=== PATIENT | male | born 1945 ===

== ENCOUNTER 2024-09-18 11:03 | Outpatient (CLI) | payer OTHER, SELFPAY ==
[2024-09-18 12:01] LABS: Albumin* 4.7 g/dL (3.3-5.0); Chloride* 107 mmol/L (96-114); Potassium* 5.2 mmol/L (3.6-5.1); Sodium* 140 mmol/L (135-149)
[2024-09-18 12:04] LABS: Anion Gap 14 mEq/L (7-15); Blood Urea Nitrogen* 65 mg/dL (7-30); Carbon Dioxide* 19 mmol/L (20-32); Creatinine* 3.4 mg/dL (0.5-1.5); Estimated Glomerular Filt Rate 18 ml/min; Glucose* 130 mg/dL (60-115)
[2024-09-18 12:05] LABS: Calcium* 9.4 mg/dL (8.4-10.6)
== END 2024-09-18 11:04 | disposition home or self-care (01) ==
PROVIDERS: PCP Family Medicine; Visit Provider Internal Medicine Cardiovascular Disease
DX: I25.5 Ischemic cardiomyopathy (principal); R06.02 Shortness of breath; R79.89 Other specified abnormal findings of blood chemistry
CPT/HCPCS: 36415; 80069

== ENCOUNTER 2024-10-17 08:24 | Outpatient (CLI) | payer OTHER, SELFPAY ==
[2024-10-17 08:55] LABS: Chloride* 111 mmol/L (96-114)
[2024-10-17 08:56] LABS: Potassium* 5.2 mmol/L (3.6-5.1); Sodium* 139 mmol/L (135-149)
[2024-10-17 08:58] LABS: Anion Gap 10 mEq/L (7-15); Carbon Dioxide* 18 mmol/L (20-32); Creatinine* 2.5 mg/dL (0.5-1.5); Estimated Glomerular Filt Rate 26 ml/min
[2024-10-17 08:59] LABS: Blood Urea Nitrogen* 51 mg/dL (7-30); Calcium* 9.3 mg/dL (8.4-10.6); Glucose* 129 mg/dL (60-115)
== END 2024-10-17 08:25 | disposition home or self-care (01) ==
LOC: LAB 08:25
PROVIDERS: PCP Family Medicine; Visit Provider Internal Medicine Cardiovascular Disease
DX: I25.5 Ischemic cardiomyopathy (principal)
CPT/HCPCS: 36415; 80048

== ENCOUNTER 2025-01-10 14:12 | Emergency (ER) | payer OTHER, SELFPAY ==
[2025-01-10] VITALS (45 sets, daily range): BP systolic 90–159; BP diastolic 51–128; PULSE 39–82; RESP 9–29; TEMP 36; O2SAT 89–97; BMI 33.5
--- OUTSIDE RECORDS SUMMARY | 2025-01-10 14:13 | XMS_ITS | Clinical Summary ---
Author Organization [facility] Address [address] [place] [address] Care Team Providers Care Senior Developer Name Role Phone None Reported, Pcp Primary Care Provider Unavail able Source Comments Patient records contain information from all sites at [facility]. For routine questions regarding patient records, call [phone] during business hours, M-F 8:00 AM - 5:00 PM Central Time. Record requests for emergency care only can be directed to [phone] at any time.[facility] Allergies No known active allergies Medications levothyroxine 50 mcg tablet Take 50 mcg by mouth. 4 Active pravastatin (PravachoL) 20 mg tablet Take 20 mg by mouth at bedtime. Active furosemide (Lasix) 20 mg tablet Take 20 mg by mouth every morning. Active amLODIPine (Norvasc) 10 mg tablet Take 10 mg by mouth daily. Active metoprolol succinate (Toprol XL) 50 mg 24 hr tablet Take 50 mg by mouth daily. Active gabapentin (Neurontin) 300 mg capsule Take 600 mg by mouth at bedtime. Active famotidine (Pepcid) 20 mg tablet Take 20 mg by mouth. 4 Active glipiZIDE (GlucotroL) 10 mg tablet TAKE 1 TABLET (10 MG) BY MOUTH ONCE DAILY BEFORE A MEAL. Active allopurinoL (Zyloprim) 100 mg tablet Take 100 mg by mouth. 4 Active predniSONE (Deltasone) 10 mg tablet Take 2 tabs daily as needed with onset of gout attack. 3 Active acetaminophen (TylenoL) 325 mg tablet Take 325 mg by mouth every 4 (four) hours as needed. 0 Active aspirin [address] tablet Take 1 tablet by mouth daily. 7 Active moxifloxacin (Vigamox) 0.5 % ophthalmic solution Administer 1 drop into the right eye 4 (four) times a day. Begin 06/22/2024. Follow schedule provided. 3 mL 1 4 Active ketorolac (Acular) 0.5 % ophthalmic solution Administer 1 drop into the right eye 4 (four) times a day. Begin 06/22/2024. Follow schedule provided. 5 mL 1 4 Active prednisoLONE acetate (Pred Forte) 1 % ophthalmic suspension Administer 1 drop into the right eye 4 (four) times a day. Begin 06/22/2024. Follow schedule provided. 10 mL 1 4 Active moxifloxacin (Vigamox) 0.5 % ophthalmic solution Administer 1 drop into the left eye 4 (four) times a day. Begin 06/08/2024. Follow schedule provided. 3 mL 1 Active Additional Information Patient not taking.Reported on 06/24/2024 ketorolac (Acular) 0.5 % ophthalmic solution Administer 1 drop into the left eye 4 (four) times a day. Begin 06/08/2024. Follow schedule provided. 5 mL 1 4 Active Additional Information Patient taking differently:1 drop left eye2 times daily, Begin 06/08/2024. Follow schedule provided., Reported on 06/24/2024 prednisoLONE acetate (Pred Forte) 1 % ophthalmic suspension Administer 1 drop into the left eye 4 (four) times a day. Begin 06/08/2024. Follow schedule provided. 10 mL 1 4 Active Additional Information Patient taking differently:1 drop left eye2 times daily, Begin 06/08/2024. 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 Chronic Kidney Disease 06/09/2024 Cataract Senile Nuclear Sclerosis Left Cataract Senile Cortical Left 05/26/2024 Cataract Senile Nuclear Sclerosis Right 05/26/20 Cataract Senile Cortical Right 05/26/2024 Social History Tobacco Use Types Packs/Day Years Used Date Smoking Tobacco: Never Smokeless Tobacco: Never Tobacco Cessation:Counseling Given: Not Answered Alcohol Use Standard Drinks/Week Comments Yes 0 (1 standard drink = 0.6 oz pur e alcohol) occasional Dental Answer Date Recorded Dental: Regular Dentist Unknown 04/14/20 Sex and Gender Information Value Date Recorded Sex Assigned at Not on file 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 Gender Identity Not on file Sexual Orientation Not on file Last Filed Vital Signs Vital Sign Reading Time Taken Comments Blood Pressure 124/74 06/24/2024 8:50 AM CDT Pulse 71 06/24/2024 8:50 AM CDT Temperature 35.8 C (96.4 F) 06/24/2024 7:03 AM CDT Respiratory Rate 18 06/24/2024 8:50 AM CDT Oxygen Saturation 97% 06/24/2024 8:50 AM CDT Inhaled Oxygen Concentration - - Weight 121 kg (265 lb 14 oz) 06/24/2024 7:03 AM CDT Height 183.2 cm (6' 0.13) 05/26/2024 9:44 AM CD T Body Mass Index 35.93 05/26/2024 9:44 AM CDT Plan of Treatment Health Maintenance Due Date Last Done Comments Diabetic Office Visit with Foot Exam 1945 Hepatitis C Screening 1945 Office Visit for Blood Pressure Check / Re-check 1945 Urine Albumin 1945 Hepatitis B Vaccines (1 of 3 - Risk 3-dose series) 2006 RSV vaccine - (32-36 weeks) or 60+ years (1 - 1-dose 75+ series) 2021 COVID-19 Vaccine ( season) 2024 07/30/2023, 10/18/2021, 01/09/2021, Additional history exists Hemoglobin A1C 09/02/2024 03/03/2024, 0210/2023, 01/23/2023, Additional history exists Depression Screening (Annual PHQ-2) 09/30/2024 Fall Risk Screen (Annual) 09/30/2024 Thyroid Stimulating Hormone (TSH) test for thyroid function 05/07/2025 05/07/2024, 02/26/2024, 01/12/2020 Dilated Eye Exam 05/26/2025 05/26/2024 Creatinine Level (Kidney Function Test) 09/04/2025 09/04/2024, 05/27/2024, 02/26/2024, Additional history exists Potassium Level 09/04/2025 09/04/2024, 05/01, 02/26/2024, Additional history exists Sodium Level 09/04/2025 09/04/2024, 05/01, 02/26/2024, Additional history exists DTaP,Tdap,and Td Vaccines (3 - Td or Tdap) 03/11/2029 03/11/2019, 05/21/2007 Pneumococcal vaccine (50+ years) Completed 08/19/2014, 01/09/2011 Zoster Vaccines Completed 09/15/2019, 06/01, 01/09/2011 Influenza Vaccine Completed 09/01/2024, , 06/08/2020, Additional history exists IPV Vaccines Aged Out No longer eligi ble based on patient's age to complete this topic Medical Devices Implanted Type Area Bond Writer Device Identifier Shelf Expiration Date Model / Serial / Lot Lens Tcn [id number] Bicnvx +19.5d - [id number] - [id number] Implanted:Qty : 1 on 06/10/2024 by Rene Carrera M.D. at [facility] Ocular Lens Left: Eye [employer] (Previously NAT) [id number] 12/23/2026 [id number] / [id number] / Lens Tcn [id number] Bicnvx +18.5d - [id number] - [id number] Implanted:Qty : 1 on 06/24/2024 by Rene Carrera M.D. at [facility] Ocular Lens Right: Eye [employer] (Previously NAT) [id number] 11/30/2027 [id number] / [id number] / Insurance [place] [id number] Advance Directives For more information, please contact: [phone] * Full Code (Latest Code Status on File) Date Activated Date Inactivated Comments 06/24/2024 8:53 AM 06/24/2024 11:14 AM Question Answer Comments Full Code: Discussed * Full Code Date Activated Date Inactivated Comments 06/10/2024 11:21 AM 06/10/2024 1:33 PM Question Answer Comments Full Code: Discussed Care Teams Senior Developer Relationship Specialty Start Date End Date None Reported, Pcp PCP - General Family Medicine 06/10/24
--- OUTSIDE RECORDS SUMMARY | 2025-01-10 14:13 | XMS_ITS ---
Author Organization [facility] Address [address] [place] [id number] Care Team Providers Care Vp Foundation Name Role Phone VoteHerminio burrell Primary Care Provider [phone] Nora Chahal MD Unavailable [phone] Transitional Care Management Status:Closed (Closed) Start date:11/12/2024 Enrollment date:11/12/2024 End date:11/26/2024 Close reason:Goals met Continued Care and Services Coordination
--- OUTSIDE RECORDS SUMMARY | 2025-01-10 14:13 | XMS_ITS | Encounter Summary ---
Author Organization [facility] Address [address] [place] [address] Care Team Providers Care Rotary Soil Stabilizer Name Role Phone Unavailable Primary Care Provider Unavailabl e Encounter Details Date Type Department Care Team (Late st Contact Info) Description 02/06/2011 2:50 PM CDT [facility] in [address] [phone] Kareem Suggs MD 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 [address] [place] [phone] Jesus Del Castillo MD [address] [place] [address] 03/25/2025 1:20 PM CDT Office Visit [facility] [address] [place] [phone] Nora Chahal MD [address] [facility] [place] [address] 04/06/2025 Ancillary Procedure [facility] [address] [place] [phone] Jesus Del Castillo MD [address] [facility] [place] [address] 04/08/2025 12:50 PM CDT Office Visit [place] [id number] [place] [phone] Priscilla Lopez APRN CNP [address] [place] [address] documented as of this encounter Visit Diagnoses Not on filedocumented in this encounter Additional Health Concerns Infection Onset Date Last Indicated Resolved Time MRSA-Contact Isolation Comment:Infection erroneous 10/02/2021 1 1:02 AM CLINICAL PHARMACIST 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
--- OUTSIDE RECORDS SUMMARY | 2025-01-10 14:14 | XMS_ITS | Encounter Summary ---
Author Organization [place] Address [address] [place] [address]. [place] [address] Care Team Providers Care Merchandise Associate Name Role Phone RonniteHerminio burrell Primary Care Provider [phone] Nora Chahal MD Unavailable [phone] Reason for Referral * Consultation (Routine) - Pending Review Specialty Diagnoses / Procedures Referred By Contac t Referred To Contact Cardiovascular Disease Diagnoses Acute diastolic heart failure (H) Nora Chahal MD [address] [facility], [address] [place] [address] Phone: tel: fax: Referral ID Status Reason Start Date Expiration Date V isits Requested Visits Authorized [id number] Pending Review 11/27/2024 11/27/2025 1 1 Question Answer Follow-up with: Self Patient Scheduling Instructions: [facility] will call you to coordinate your care as prescribed by your provider. If you have concerns about scheduling, please call [phone]. Comments [facility] will call you to coordinate your care as prescribed by your provider. If you have concerns about scheduling, please call [phone]. BUSINESS ANALYST Reason for Visit * Reason Comments Follow Up * Consultation (Urgent: 3-5 Days) - Pending Review Specialty Diagnoses / Procedures Referred By Contac t Referred To Contact Cardiovascular Disease Diagnoses Acute diastolic heart failure (H) Bry Brothers DO [address] [place] [address] Phone: tel: fax: Referral ID Status Reason Start Date Expiration Date V isits Requested Visits Authorized [id number] Pending Review 11/11/2024 11/11/2025 1 1 Encounter Details Date Type Department Care Team (Latest Contact Info) Description 11/27/2024 10:50 AM LEAD BUSINESS ANALYST Office Visit [facility] [place] [address] [facility] [address] [place] [phone] Nora Chahal MD [address] [facility], [address] [place] [address] Acute diastolic heart failure (H) (Primary Dx); Coronary atherosclerosis due to lipid rich plaque; Ischemic cardiomyopathy; ICD (implantable cardioverter-defibrillat or), dual, in situ; Hypertension; Hypercholesteremia; Class 2 severe obesity due to excess calories with serious comorbidity and body mass index (BMI) of 35.0 to 35.9 in adult (H); FARZANA on CPAP; Type 2 diabetes mellitus without complication, without long-term current use of insulin (H); CKD (chronic kidney disease) stage 4, GFR 15-29 ml/min (H) Social History Tobacco Use Types Packs/Day Years Used Date Smoking Tobacco: Never Smokeless Tobacco: Former Chew Tobacco Cessation:Counseling Given: Not Answered Alcohol Use Standard Drinks/Week Comments No 0 (1 standard drink = 0.6 oz pur e alcohol) PHQ-2 Answer Date Recorded PHQ-2 Score 0 11/27/2024 Adolescent Education Answer Date Record ed Getting School Help Needed Not on file 07/10 Food Insecurity Answer Date Recorded Within the past 12 months, d id you worry that your food would run out before you got money to buy more? No 11/05/2024 Within the past 12 months, d id the food you bought just not last and you didn t have money to get more? No 11/05/2024 Housing Stability Answer Date Recorded Do you have housing? (Housin g is defined as stable permanent housing and does not include staying ouside in a car, in a tent, in an abandoned building, in an overnight care home, or couch-surfing.) Yes 11/05/2024 Are you worried about losing your housing? No 11/05/2024 Financial Resource Strain Answer Date R ecorded Within the past 12 months, h ave you or your family members you live with been unable to get utilities (heat, electricity) when it was really needed? No 11/05/2024 Transportation Needs Answer Date Record ed Within the past 12 months, h as lack of transportation kept you from medical appointments, getting your medicines, non-medical meetings or appointments, work, or from getting things that you need? No 11/05/2024 Interpersonal Safety Answer Date Record ed Do you feel physically and e motionally safe where you currently live? Yes 11/05/2024 Within the past 12 months, h ave you been hit, slapped, kicked or otherwise physically hurt by someone? No 11/05/2024 Within the past 12 months, h ave you been humiliated or emotionally abused in other ways by your partner or ex-partner? No 11/05/2024 Sex and Gender Information Value Date Recorded Sex Assigned at Not on file Legal Sex Male 5:07 AM LEAD BUSINESS ANALYST Gender Identity Not on file Sexual Orientation Not on file documented as of this encounter Last Filed Vital Signs Vital Sign Reading Time Taken Comments Blood Pressure 110/58 11/27/2024 10:43 AM LEAD BUSINESS ANALYST Pulse 88 11/27/2024 10:43 AM LEAD BUSINESS ANALYST Temperature - - Respiratory Rate 28 11/27/2024 10:43 AM LEAD BUSINESS ANALYST Oxygen Saturation - - Inhaled Oxygen Concentration - - Weight 114.3 kg (252 lb) 11/27/2024 10:43 AM LEAD BUSINESS ANALYST Height 180.3 cm (5' 11) 11/27/2024 10:43 AM LEAD BUSINESS ANALYST Body Mass Index 35.15 11/27/2024 10:43 AM LEAD BUSINESS ANALYST documented in this encounter Patient Instructions * Patient Instructions* Nora Chahal MD - 11/27/2024 10:50 AM LEAD BUSINESS ANALYST Mr David Coleman, I enjoyed visiting with you and again today. I am sorry to hear of the urine issues. Per our conversation double the BUMEX to 2 tablets every AM for the next 4 days and also do not drink anymore then 1/2 gallon all liquids in a day. And continue to limit salt. I will plan on seeing you 3-4 months. Ravindra Chahal BUSINESS ANALYST documented in this encounter Progress Notes * Nora Chahal MD - 11/27/2024 10:50 AM CST Images from the original note were not included. [facility] Follow-up Note Assessment & Plan (I50.31) Acute diastolic heart failure (H) (primary encounter diagnosis) Comment: Given increased shortness of breath he underwent right heart catheterization, this showed significant volume overload, he was admitted and had appropriate diuresis. Since going home he states his weights have not dropped despite him not eating, he states his shortness of breath has returned, and given his PND and orthopnea suspect he is back in heart failure. Will take the liberty of increasing his Bumex from 1 mg to 2 mg/day for the next 4 days, he has nephrology follow-up in slightlyless than 2 weeks to evaluate his increasing creatinine as well. We are limiting his fluid and limiting his sodium intake as well. (I25.10, I25.83) Coronary atherosclerosis due to lipid rich plaque (primary encounter diagnosis) Comment: Angiography February 2017 showed 25% left main lesion, normal LAD with 80% first diagonal, 35%second diagonal, normal circumflex with first obtuse marginal artery 35% with a patent stent followed by 30% stenosis. Right coronary artery has a proximal 30% lesion followed by a 40% lesion with a distal total occlusion of the PDA. Nuclear stress test 2018 showed small area of inferolateral ischemia with preserved ejection fraction and no scar, if shortness of breath persist will most likely need to repeat ischemic evaluation. (I25.5) Ischemic cardiomyopathy Comment: Initially with cardiac arrest in 2010 his ejection fraction was diminished and he receivedICD, echo done over at [facility] shows preserved ejection fraction 55 to 60%. Stress test shows ejection fraction 53%, given increased shortness of breath are echo confirmed ejection fraction 50 to 55%. (Z95.810) ICD (implantable cardioverter-defibrillator), dual, in situ Comment: [employer] device with [employer] leads placed January 2011, less than 1% ventricular pacing, less than 1% atrial pacing, no ventricular arrhythmias, however did notice atrial fibrillation, is now on Eliquis 5 mg twice daily, to be seen by EP in 2 weeks. (E66.9) Obesity (BMI 35.0-39.9 without comorbidity) Comment: Work on weight loss with current BMI 35.15. Might consider GLP-1 type drugs. (E78.00) Hypercholesteremia Comment: Unable to afford Repatha, currently on pravastatin 20 mg, total cholesterol 182 with a LDLof 93, acceptable. Might consider increasing pravastatin. (E11.9) Type 2 diabetes mellitus without complication, without long-term current use of insulin (H) Comment: So noted on no meds with hemoglobin A1c of 6.6, might consider Jardiance or GLP-1 type drugs. (I49.01) Ventricular Fibrillation Comment: Given sudden he had ICD implanted. (I10) Hypertension Comment: Under good control currently on amlodipine and metoprolol. (N18.4) CKD (chronic kidney disease) stage 4, GFR 15-29 ml/min (H) Comment: Relatively new diagnosis for him, his creatinine is 2.32 with a GFR of 28, class IV, seeing nephrology, continue to monitor with increased dose of diuretic. (G47.33) FARZANA on CPAP Comment: So noted and nightly compliance. Plan 1. Continue to work on weight loss. 2. Increase Bumex to 2 mg for the next 4 mornings. 3. Follow-up with nephrology in approximately 2 weeks to reevaluate creatinine. 4. Follow-up with EP to reevaluate atrial fibrillation. 5. Continue fluid and salt restriction. 6. Follow-up with me in about 3 to 4 months or sooner if needed. 7. Follow-up with urology considering significant urinary retention with hematuria. 8. Speak with his primary about gout flare, agree with possible short-term steroids. The longitudinal plan of care for the diagnosis(es)/condition(s) as documented were addressed during this visit. Due to the added complexity in care, I will continue to support Ole in the subsequent management and with ongoing continuity of care. Subjective CC: 79-year-old white gentleman here for posthospital discharge follow-up visit with his present. Since I saw him we performed right heart catheterization, saw pulm and Kepley wedge pressure elevated to 24 mmHg prompted admission. While in the hospital he was seen by urology as well as nephrology and was given IV diuresis. He did feel very good but yet on arrival home states that shortness of breath is increased and his weightis gone up maybe 3 pounds. He also now has a gout flare. He does also describe PND and orthopnea, despite wearing CPAP he has to sit up to catch his breath nightly. There is mildly increased bipedal e kira. There is no chest pains, palpitations, syncope, dizziness. Medications Current Outpatient Medications Medication Sig Dispense Refill albuterol (PROAIR HFA/PROVENTIL HFA/VENTOLIN HFA) 108 (90 Base) MCG/ACT inhaler Inhale 1-2 puffs into the lungs every 4 hours as needed for shortness of breath, wheezing or cough. allopurinol (ZYLOPRIM) 300 MG tablet Take 300 mg by mouth daily. amLODIPine (NORVASC) 10 MG tablet [AMLODIPINE (NORVASC) 10 MG TABLET] Take 10 mg by mouth daily. apixaban ANTICOAGULANT (ELIQUIS ANTICOAGULANT) 5 MG tablet Take 1 tablet (5 mg) by mouth 2 times daily. 60 tablet 3 aspirin 81 MG EC tablet [ASPIRIN 81 MG EC TABLET] Take 81 mg by mouth daily. bumetanide (BUMEX) 1 MG tablet Take 1 tablet (1 mg) by mouth daily. 30 tablet 0 famotidine (PEPCID) 20 MG tablet Take 20 mg by mouth 2 times daily. fluticasone-salmeterol (ADVAIR) 250-50 MCG/ACT inhaler INHALE 1 PUFF BY MOUTH TWO TIMES DAILY. gabapentin (NEURONTIN) 100 MG capsule Take 1 capsule (100 mg) by mouth 2 times daily. 60 capsule 0 levothyroxine (SYNTHROID/LEVOTHROID) 50 MCG tablet Take 50 mcg by mouth daily. metoprolol succinate ER (TOPROL XL) 50 MG 24 hr tablet Take 1 tablet (50 mg) by mouth daily. 30 tablet 0 polyethylene glycol (MIRALAX) 17 GM/Dose powder Take 17 g by mouth daily as needed for constipation. pravastatin (PRAVACHOL) 20 MG tablet Take 1 tablet (20 mg) by mouth at bedtime. 30 tablet 0 predniSONE (DELTASONE) 10 MG tablet Take 2 tablets by mouth daily as needed (Gout Attack). At the onset of a gout attack senna-docusate (SENOKOT-S/PERICOLACE) 8.6-50 MG tablet Take 2 tablets by mouth 2 times daily. sitagliptin (JANUVIA) 25 MG tablet Take 1 tablet (25 mg) by mouth daily. 30 tablet 0 sodium bicarbonate 650 MG tablet Take 1 tablet (650 mg) by mouth 3 times daily. 90 tablet 0 tamsulosin (FLOMAX) 0.4 MG capsule Take 1 capsule (0.4 mg) by mouth daily. 30 capsule 0 blood glucose (NO BRAND SPECIFIED) test strip TEST 3 TIMES PER DAY THREE DAYS PER WEEK. blood glucose monitoring (SOFTCLIX) lancets TEST 3 TIMES PER DAY 3 DAYS PER WEEK. Blood Glucose Monitoring Suppl (ACCU-CHEK GUIDE ME) w/Device KIT DIRECTED. DISPENSE METER COVERED BY [employer]. cefdinir (OMNICEF) 300 MG capsule Take 1 capsule (300 mg) by mouth daily. 7 capsule 0 multivitamin therapeutic (THERAGRAN) tablet [MULTIVITAMIN THERAPEUTIC (THERAGRAN) TABLET] Take 1 tablet by mouth daily. oxyCODONE (ROXICODONE) 5 MG tablet Take 0.5-1 tablets (2.5-5 mg) by mouth every 6 hours as needed for severe pain. 12 tablet 0 Objective BP 110/58 (BP Location: Right arm, Patient Position: Sitting, Cuff Size: Adult Large) Pulse 88 Resp 28 Ht 1.803 m (5' 11) Wt 114.3 kg (252 lb) BMI 35.15 kg/m?? General Appearance: Alert, cooperative, no distress, appears stated age Head: Normocephalic, without obvious abnormality, atraumatic Throat: Lips, mucosa, and tongue normal; teeth and gums normal Neck: Supple, symmetrical, trachea midline, no adenopathy; thyroid: No enlargement/tenderness/nodules; no carotid bruit, to jaw at 30 degrees JVD Back: Symmetric, no curvature, ROM normal, no CVA tenderness Lungs: Decreased breath sounds bases bilaterally, respirations unlabored Chest wall: No tenderness or deformity Heart: Regular rate and rhythm, S1 and S2 normal, no murmur, rub or gallop Abdomen: Soft, non-tender, bowel sounds active all four quadrants, no masses, no organomegaly Extremities: Normal, atraumatic, no cyanosis, 1/4 bipedal edema Pulses: 2+ and symmetric all extremities Skin: Skin color, texture, turgor normal, no rashes or lesions Results Lab Results personally reviewed Lab Results Component Value Date CHOL 138 11/04/2024 CHOL 151 12/04/2013 Lab Results Component Value Date HDL 30 (L) 11/04/2024 HDL 32 (L) 12/04/2013 No components found for: LDLCALC Lab Results Component Value Date TRIG 174 (H) 11/04/2024 TRIG 103 12/04/2013 Lab Results Component Value Date WBC 19.7 (H) 11/25/2024 HGB 11.2 (L) 11/25/2024 HCT 32.8 (L) 11/25/2024 PLT 273 11/25/2024 Lab Results Component Value Date BUN 43.8 (H) 11/25/2024 NA 130 (L) 11/25/2024 CO2 21 (L) 11/25/2024 BUSINESS ANALYST documented in this encounter Plan of Treatment Upcoming Encounters Date Type Department Care Team (Late st Contact Info) Description 02/19/2025 Ancillary Procedure [address] [place] [phone] Jesus Del Castillo MD [address] [facility] [address] [place] [address] 03/25/2025 1:20 PM CDT Office Visit [place] [id number] [facility] [address] [place] [phone] Nora Chahal MD [address] [facility], [address] [place], [place] [id number] 04/06/2025 Ancillary Procedure [facility] [address] [facility] [address] [place] [phone] Jesus Del Castillo MD [address] [facility] [address] [place], [place] [id number] 04/08/2025 12:50 PM CDT Office Visit [facility] [address] [facility] [address] [place] [phone] Priscilla Lopez APRN [employer] [address] [facility] [address] [place] [address] Scheduled Referrals Name Type Priority Associated Diagnoses Orde r Schedule Follow-Up with Cardiology Referral Routine: Next available opening Acute diastolic heart failure (H) Expected: 03/27/2025 (Approximate), Expires: 11/27/2025 documented as of this encounter Visit Diagnoses Diagnosis Acute diastolic heart failure (H)- Primary Acute diastolic heart failure Coronary atherosclerosis due to lipid rich plaque Ischemic cardiomyopathy Other specified forms of chronic ischemic heart disease ICD (implantable cardioverter-defibrillator), dual, in situ Hypertension Unspecified essential hypertension Hypercholesteremia Pure hypercholesterolemia Class 2 severe obesity due to excess calories with serious comorbidity and body mass index (BMI) of 35.0 to 35.9 in adult (H) FARZANA on CPAP Obstructive sleep apnea (adult) (pediatric) Type 2 diabetes mellitus without complication, without long-term current use of insulin (H) CKD (chronic kidney disease) stage 4, GFR 15-29 ml/min (H) Chronic kidney disease, Stage IV (severe) documented in this encounter Additional Health Concerns Infection Onset Date Last Indicated Resolved Time 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
--- OUTSIDE RECORDS SUMMARY | 2025-01-10 14:14 | XMS_ITS | Encounter Summary ---
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 Sick sinus syndrome (H) Procedures Cardiac Device Check - Remote Jesus Del Castillo MD [address] [address] Phone: tel: fax: Referral ID Status Reason Start Date Expiration Date V isits Requested Visits Authorized [id number] Pending Review 12/10/2024 12/10/2025 100 100 * CV Testing (Routine) - Pending Review Specialty Diagnoses / Procedures Referred By Contac t Referred To Contact Diagnoses 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 Sick sinus syndrome (H) Procedures Cardiac Device Check - In Clinic Jesus Del Castillo MD 1600 [facility] [address] [place] [address] Phone: tel: fax: Referral ID Status Reason Start Date Expiration Date V isits Requested Visits Authorized [id number] Pending Review 12/10/2024 12/10/2025 50 50 Reason for Visit * CV Testing (Routine) - Pending Review Specialty Diagnoses / Procedures Referred By Delma t Referred To Contact Diagnoses 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 Sick sinus syndrome (H) Procedures Cardiac Device Check - In Clinic Jesus Del Castillo MD 1600 [facility] [address] [place] [address] Phone: tel: fax: Referral ID Status Reason Start Date Expiration Date V isits Requested Visits Authorized [id number] Pending Review 09/04/2024 09/04/2025 50 50 Encounter Details Date Type Department Care Team (Latest Contact Info) Description 12/10/2024 2:30 PM CDT Ancillary Procedure [facility] Heart [facility] [address] [facility] [address] [place] [phone] Jesus Del Castillo MD 1600 [facility] [address] [place], [place] [id number] 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 (Primary Dx); Sick sinus syndrome (H) Social History Tobacco Use Types Packs/Day [...] in an abandoned building, in an overnight detention, or couch-surfing.) Yes 11/05/2024 Are you worried [...] on file 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 Gender Identity Not on file Sexual Orientation Not on file documented as of this encounter Plan of Treatment Upcoming Encounters Date Type Department Care Team (Late st Contact Info) Description 02/19/2025 Ancillary Procedure [address] [place] [address] Jesus Del Castillo MD 1600 [facility] [address] [place] [address] 03/25/2025 1:20 PM CDT Office Visit [facility] [address] [facility] [address] [place] [phone] Nora Chahal MD [address] [facility] [address] [place] [address] 04/06/2025 Ancillary Procedure [facility] [address] [facility] [address] [place] [address] Jesus Del Castillo MD 1600 [facility] [address] [place], [place] [id number] 04/08/2025 12:50 PM CDT Office Visit [facility] [address] [place] [phone] Priscilla Lopez APRN NUCLEAR MEDICINE PHYSICIAN [address] [facility] [address] [place], [place] [phone] Scheduled Orders Name Type Priority Associated Diagnoses Order Schedule Cardiac Device Check - In Clinic Implantable Cardiac Device Routine 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 Sick sinus syndrome (H) 50 Occurrences starting 12/10/2024 until 12/10/2033 Cardiac Device Check - Remote Implantable Cardiac Device Routine 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 Sick sinus syndrome (H) 100 Occurrences starting 12/10/2024 until 12/08/2035 documented as of this encounter Procedures Procedure Name Priority Date/Time Associated Diagnosis Comments ICD DEVICE PROGRAMMING EVAL, DUAL LEAD ICD Routine 12/10/2024 1:56 PM CDT 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 Sick sinus syndrome (H) documented in this encounter Results * ICD DEVICE PROGRAMMING EVAL, DUAL LEAD ICD (12/10/2024 1:56 PM CDT) Date Time Interrogation Session [id number] [employer] Implantable Pulse Generator Engineering Designer [employer] Implantable Pulse Generator Model D121 MOMENTUM EL ICD [employer] Implantable Pulse Generator Serial Number [id number] [employer] Type Interrogation Session In Clinic [facility] Clinic Name [facility] [employer] Implantable Pulse Generator Type Defibrillator [employer] Implantable Pulse Generator Implant Date 20220912 [employer] Implantable Lead Engineering Designer [employer] Implantable Lead Model 4470 Fineline II Sterox EZ [employer] Implantable Lead Serial Number [id number] [employer] Implantable Lead Implant Date 20110217 [employer] Implantable Lead Polarity Type Bipolar Lead [employer] Implantable Lead Location Detail 1 APPENDAGE [employer] Implantable Lead Location Right Atrium [employer] Implantable Lead Connection Status Connected [employer] Implantable Lead Engineering Designer [employer] Implantable Lead Model 0158 [place] [employer] Implantable Lead Serial Number [id number] [employer] Implantable Lead Implant Date 20110217 [employer] Implantable Lead Polarity Type Tripolar Lead [employer] Implantable Lead Location Detail 1 SEPTUM [employer] Implantable Lead Location Right Ventricle [employer] Implantable Lead Connection Status Connected [employer] Charlie Setting Mode (NBG Code) DDDR [employer] Charlie Setting Lower Rate Limit 55 {beats}/ min [employer] Charlie Setting Maximum Tracking Rate 130 {beats}/ min [employer] Charlie Setting Maximum Sensor Rate 130 {beats}/ min [employer] Charlie Setting GAGAN Delay Low 180 ms [employer] Charlie Setting PAV Delay Low 180 ms [employer] Charlie Setting PAV Delay High 120 ms [employer] Charlie Setting GAGAN Delay High 120 ms [employer] Charlie Setting AT Mode Switch Rate 170 {beats}/ min [employer] Charlie Setting AT Mode Switch Mode DDIR [employer] Lead Channel Setting Sensing Polarity Bipolar [employer] Lead Channel Setting Sensing Sensitivity 0.25 mV [employer] Lead Channel Setting Sensing Adaptation Mode Adaptive [employer] Lead Channel Setting Sensing Polarity Bipolar [employer] Lead Channel Setting Sensing Sensitivity 0.6 mV [employer] Lead Channel Setting Sensing Adaptation Mode Adaptive [employer] Lead Channel Setting Pacing Polarity Bipolar [employer] Lead Channel Setting Pacing Pulse Width 0.4 ms [employer] Lead Channel Setting Pacing Amplitude 2.0 V [employer] Lead Channel Setting Pacing Capture Mode Adaptive [employer] Lead Channel Setting Pacing Polarity Bipolar [employer] Lead Channel Setting Pacing Pulse Width 0.4 ms [employer] Lead Channel Setting Pacing Amplitude 2.0 V [employer] Lead Channel Setting Pacing Capture Mode Adaptive [employer] Zone Setting Type Category VF [facility] Zone Setting Vendor Type Category VF [employer] Zone Setting Status Active [facility] Zone Setting Detection Interval 250 ms [employer] Zone Setting Type Category VT [facility]TR[employer]IC Zone Setting Vendor Type Category VT [facility]IC Zone Setting Status Active [facility] Zone Setting Detection Interval 324 ms [employer] Lead Channel Status Check Lead [employer] Lead Channel Impedance Value 469 ohm [employer] Lead Channel Impedance Value 469 ohm [employer] Lead Channel Sensing Intrinsic Amplitude 4.3 mV [employer] Lead Channel Pacing Threshold Amplitude 0.6 V [employer] Lead Channel Pacing Threshold Pulse Width 0.4 ms [employer] Lead Channel Pacing Threshold Amplitude 0.6 V [employer] Lead Channel Pacing Threshold Pulse Width 0.4 ms [employer] Lead Channel Status Check Lead [employer] Lead Channel Impedance Value 384 ohm [employer] Lead Channel Impedance Value 384 ohm [employer] Lead Channel Sensing Intrinsic Amplitude 4.8 mV [employer] Lead Channel Pacing Threshold Amplitude 1.0 V [employer] Lead Channel Pacing Threshold Pulse Width 0.4 ms [employer] Lead Channel Pacing Threshold Amplitude 1.0 V [employer] Lead Channel Pacing Threshold Pulse Width 0.4 ms [employer] Battery Date Time of Measurements [id number] [employer] Battery Status Beginning of Service [employer] Battery Remaining Longevity 138 mo [employer] Battery Remaining Percentage 100 % [employer] Capacitor Charge Type Reformation [employer] Capacitor Last Charge Date Time [id number] [employer] Capacitor Charge Time 10.1 s [employer] Charlie Statistic Date Time Start [id number] [employer] Charlie Statistic Date Time End [id number] [employer] Charlie Statistic RA Percent Paced 1 % [employer] Charlie Statistic RV Percent Paced 1 % [employer] Atrial Tachy Statistic Date Time Start [id number] [employer] Atrial Tachy Statistic Date Time End [id number] [employer] Atrial Tachy Statistic AT/AF [place] Percent 1 % [employer] Therapy Statistic Recent Shocks Delivered 0 [employer] Therapy Statistic Recent Shocks Aborted 0 [employer] Therapy Statistic Recent ATP Delivered 1 [employer] Therapy Statistic Recent Date Time Start [id number] [employer] Therapy Statistic Recent Date Time End [id number] [employer] Therapy Statistic Total Shocks Delivered 0 [employer] Therapy Statistic Total Shocks Aborted 0 [employer] Therapy Statistic Total ATP Delivered 1 [employer] Therapy Statistic Total Date Time Start [id number] [employer] Therapy Statistic Total Date Time End [id number] [employer] Episode Statistic Recent Count 0 [employer]IC Episode Statistic Type Category Other MEDTRONIC Episode Statistic Recent Count 1 [employer]IC Episode Statistic Type Category VT MEDTR[facility]IC Episode Statistic Vendor Type Category NSVT [facility] Episode Statistic Recent Count 1 [employer]IC Episode Statistic Type Category VT MEDTR[employer]IC Episode Statistic Vendor Type Category VT [facility]TR[employer]IC Episode Statistic Recent Count 0 [employer]IC Episode Statistic Type Category VT [facility]IC Episode Statistic Vendor Type Category VT-1 [employer] Episode Statistic Recent Date Time Start [id number] [employer] Episode Statistic Recent Date Time End [id number] [employer] Episode Statistic Recent Date Time Start [id number] [employer] Episode Statistic Recent Date Time End [id number] [employer] Episode Statistic Recent Date Time Start [id number] [employer] Episode Statistic Recent Date Time End [id number] [employer] Episode Statistic Recent Date Time Start [id number] [employer] Episode Statistic Recent Date Time End [id number] [employer] Anatomical Region Laterality Modality Other 12/10/2024 2:05 PM CDT Narrative 12/10/2024 3:25 PM CDT Encounter type: Pt. seen in clinic for annual device evaluation and iterative programming. Followed by an appointment with Dr. Del Castillo for AF consult, per Dr. Chahal. Device: BOSCIThomas (D) ICD Pacing %/Programmed: AP- <1%, BURN OUT SCARFING OPERATOR- <1%, DDDR 55/130 Lead(s): Stable Battery longevity: Estimating 11 years remaining. Presenting rhythm: /VS @ 80 Underlying rhythm: SR @ 80's Heart rates: Histograms show primarily 60-100 bpm. Atrial arrhythmias: Since 11/27/2024- 7 mode switches logged, 3 available EGMs for review suggest AT/AF with the longest episode lasting ~11 hours in duration. AT/AF burden = <1%. V-rates >= 120 bpm ~ 60%. Patient unable to correlate symptoms. Anticoagulant: Eliquis (confirmed) Ventricular arrhythmias: Since 11/27/2024- 2 VHRs logged; 1 EGMs shows VT episode on 10/07/24, 195-200 bpm, duration 13 seconds, terminated with ATPx1. Remaining EGM suggest 4 seconds of VT @ 189 bpm. Patient unable to correlate symptoms. Comments: Normal device function. No changes made. Plan: Remote scheduled for 02/19/2025. Patient offered remote handout. Device follow up for the entirety of having the PPM/ICD, based on best practices determined by Heart Rhythm Society and in Compliance with Medicare guidelines. Continue remote device monitoring per patient plan. Chayito Eddy RN. I have reviewed and interpreted the device interrogation, settings, programming, and encounter summary. The device is functioning within normal device parameters. I agree with the current findings, assessment and plan. 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
--- OUTSIDE RECORDS SUMMARY | 2025-01-10 14:14 | XMS_ITS | Encounter Summary ---
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 Sick sinus syndrome (H) Procedures Cardiac Device Check - Remote Jesus Del Castillo MD [address] [facility] [address] [place] [address] Phone: tel: fax: Referral ID Status Reason Start Date Expiration Date V isits Requested Visits Authorized [id number] Pending Review 09/04/2024 09/04/2025 100 100 Encounter Details Date Type Department Care Team (Latest Contact Info) Description 11/27/2024 Ancillary Procedure [facility] [address] [facility] [address] [place] [address] Jesus Del Castillo MD 1600 [facility] [address] [place] [address] ICD (implantable cardioverter-defibri llator) battery depletion; Sick sinus syndrome (H) Social History Tobacco [...] in an abandoned building, in an overnight jail, or couch-surfing.) Yes 11/05/2024 Are you worried [...] on file 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 [address] [place] [phone] Nora Chahal MD 1600 [facility], [address] [place], [place] [address] 04/06/2025 Ancillary Procedure [facility] [address] [facility] [address] [place] [phone] Jesus Del Castillo MD 1600 [facility] [address] [place], [place] [address] 04/08/2025 12:50 PM CDT Office Visit [place] [address] [facility] [address] [place] [phone] Priscilla Lopez APRN CNP [address] [facility] [address] [place], [place] [address] documented as of this encounter Procedures Procedure Name Priority Date/Time Associated Diagnosis Comments COURTESY DEVICE CHECK Routine 12/01/2024 7:03 AM BUSH REGENERATOR 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 Sick sinus syndrome (H) documented in this encounter Results * COURTESY DEVICE CHECK (12/01/2024 7:03 AM BUSH REGENERATOR) Date Time Interrogation Session [id number] [employer] Implantable Pulse Generator Finishing Machine Tender [employer] Implantable Pulse Generator Model D121 MOMENTUM EL ICD [employer] Implantable Pulse Generator Serial Number [id number] [employer] Type Interrogation Session Remote Device Initiated [facility] Clinic [facility] [employer] Implantable Pulse Generator Type Defibrillator [employer] Implantable Pulse Generator Implant Date 20220912 [employer] Implantable Lead Finishing Machine Tender Cardiac Pac[employer]akers Inc [employer] Implantable Lead Model 4470 Fineline II Sterox EZ [employer] Implantable Lead Serial Number [id number] [employer] Implantable Lead Implant Date 20110217 [employer] Implantable Lead Polarity Type Bipolar Lead [employer] Implantable Lead Location Detail 1 APPENDAGE [employer] Implantable Lead Location Right Atrium [employer] Implantable Lead Connection Status Connected [employer] Implantable Lead Finishing Machine Tender Guidant [employer] Implantable Lead Model 0158 [employer]ak [place] [employer] Implantable Lead Serial Number [id number] [employer] Implantable Lead Implant Date 20110217 MEDTRONIC [...] Detection Interval 324 ms [employer] Lead Channel Impedance Value 410 ohm [employer] Lead Channel Pacing Threshold Amplitude 0.6 V [employer] Lead Channel Pacing Threshold Pulse Width 0.4 ms [employer] Lead Channel Status Check Lead [employer] Lead Channel Impedance Value 326 ohm [employer] Lead Channel Pacing Threshold Amplitude 0.9 V [employer] Lead Channel Pacing Threshold Pulse Width 0.4 ms [employer] Battery Date Time of Measurements [id number] [employer] Battery Status Beginning of Service [employer] Battery Remaining Longevity 126 mo [employer] Battery Remaining Percentage 100 % [employer] Capacitor Charge Type Reformation [employer] Capacitor Last Charge Date Time [id number] [employer] Capacitor Charge Time 10.1 s [employer] Charlie Statistic Date Time Start [employer] Charlie Statistic Date Time End [employer] Charlie Statistic RA Percent Paced 1 % [employer] Charlie Statistic RV Percent Paced 1 % [employer] Atrial Tachy Statistic Date Time Start [employer] Atrial Tachy Statistic Date Time End [employer] Atrial Tachy Statistic AT/AF [place] Percent 1 % [employer] Therapy Statistic Recent Shocks Delivered 0 [employer] Therapy Statistic Recent Shocks Aborted 0 [employer] Therapy Statistic Recent ATP Delivered 1 [employer] Therapy Statistic Recent Date Time Start [employer] Therapy Statistic Recent Date Time End [id number] [employer] Therapy Statistic Total Shocks Delivered 0 [employer] Therapy Statistic Total Shocks Aborted 0 [employer] Therapy Statistic Total ATP Delivered 1 [employer] Therapy Statistic Total Date Time Start [id number] [employer] Therapy Statistic Total Date Time End [id number] [employer] Episode Statistic Recent Count 1 [employer] Episode Statistic Type Category AT/AF [employer] Episode Statistic Vendor Type Category AF [employer] Episode Statistic Recent Count 0 [employer]IC Episode Statistic Type Category Other MEDTRONIC Episode Statistic Recent Count 0 MEDTRONIC Episode Statistic Type Category VT MEDTRONIC Episode Statistic Vendor Type Category NSVT [employer]TR[employer]IC Episode Statistic Recent Count 0 MEDTRONIC Episode Statistic Type Category VT MEDTR[employer]IC Episode Statistic Vendor Type Category VT [employer]TR[employer]IC Episode Statistic Recent Count 0 MEDTR[employer]IC Episode Statistic Type Category VT [employer]TR[employer]IC Episode Statistic Vendor Type Category VT-1 [employer]IC Episode Statistic Recent Date Time Start [id number] [employer] Episode Statistic Recent Date Time End [id number] [employer]IC Episode Statistic Recent Date Time Start [id number] [employer] Episode Statistic Recent Date Time End [id number] [employer]TR[employer]IC Episode Statistic Recent Date Time Start [id number] [employer]IC Episode Statistic Recent Date Time End [id number] [employer] Episode Statistic Recent Date Time Start [id number] [employer]TR[employer]IC Episode Statistic Recent Date Time End [id number] [employer]IC Episode Statistic Recent Date Time Start [id number] [employer]IC Episode Statistic Recent Date Time End [id number] [employer]IC Episode Identifier [id number] [employer] Episode Type Category Periodic EGM [employer]IC Episode Date Time [id number] [employer] Episode Identifier [id number] [employer] Episode Type Category Other [employer]IC Episode Date Time [id number] [employer] Episode Identifier [id number] [employer] Episode Type Category Other [employer]IC Episode Date Time [id number] [employer] Episode Identifier [id number] [employer] Episode Type Category AT/AF [employer] Episode Date Time [id number] [employer] Episode Duration 33,427 s [employer]IC Episode Identifier [id number] [employer] Episode Type Category Periodic EGM [employer]IC Episode Date Time [id number] [employer] Episode Identifier [id number] [employer] Episode Type Category Other MED[employer]ONIC Episode Date Time [id number] [employer]IC Episode Identifier [id number] [employer] Episode Type Category Other MEDTRONIC Episode Date Time [id number] MEDTR[employer]IC Episode Identifier [id number] [employer]IC Episode Type Category Periodic EGM [employer]IC Episode Date Time [id number] [employer]IC Episode Identifier [id number] [employer] Episode Type Category Other MED[employer]ONIC Episode Date Time [id number] [employer]IC Episode Identifier [id number] [employer]IC Episode Type Category Other [employer]IC Episode Date Time [id number] [employer] Anatomical Region Laterality Modality Other 11/27/2024 4:41 AM BUSH REGENERATOR Narrative 12/01/2024 5:20 PM BUSH REGENERATOR Encounter Type: Alert 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 Courtesy check. Data was compiled on 11/27/24 for review and interpretation on 12/01/24. Device: BSCI Momentum. Pacing %/Programmed: AP 1%, GUIDE FOREIGN TOUR 1% at DDDR 55/130 ppm. Lead(s): stable. Battery longevity: 10yrs, 6mo estimated. Presenting: Sinus 80 bpm. Atrial high rates: since 11/11/24; One mode switch episode on 11/26/24 lasting 9hrs 17 minutes, EGM confirm AF, burden <1%, v-rates >/=120bpm ~40%. Anticoagulant: Eliquis Ventricular High rates: since 11/11/24; no VT/VF detected. Comments: Normal device function. Plan: Routed to device RN for review. Frannie Bee, Device Specialist ADD: Transmission reviewed, see [facility] for details. Megan Rawls RN Device follow up for the entirety of having the ICD, based on best practices determined by Heart Rhythm Society and in Compliance with Medicare guidelines. Continue remote device monitoring per patient plan. I have reviewed and interpreted the device interrogation, settings, programming, and encounter summary. The device is functioning within normal device parameters. I agree with the current findings, assessment and plan. 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
--- OUTSIDE RECORDS SUMMARY | 2025-01-10 14:14 | XMS_ITS | Encounter Summary ---
Author Organization [place] Address [address] [place] [address]. [place] [address] Care Team Providers Care Veterinary Technician Assistant Name Role Phone Voteindra Herminio Preston Primary Care Provider [phone] Nora Chahal MD Unavailable [phone] Reason for Visit * Reason Onset Date Comments Patient/info Update 12/11/2024 Encounter Details Date Type Department Care Team (Late st Contact Info) Description 12/11/2024 Telephone [facility] [address] [place] [address] Sulema Delacruz, RN Patient/info Update Social History Tobacco Use Types Packs/Day Years [...] in an abandoned building, in an overnight snf, or couch-surfing.) Yes 11/05/2024 Are you worried [...] on file 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 Note. PC note created and postponed to 12/15 to contact pt per request 12/11/2024 7:54 AM GOSIA Riojas Stuart, MD [facility] Ep Support Pool - [facility] team, Please see my note from today. Can one of the recheck of the patient next week to see if he wishes to move forward with ablation of his atrial fibrillation. If he declines I have scheduled him for a 3-month follow-up with the EP RAKAN. If he decides to move forward mapping system Guzman/YOLIE. Bhavik Lee documented in this encounter Plan of Treatment Upcoming Encounters Date Type Department Care Team (Late st Contact Info) Description 02/19/2025 Ancillary Procedure [facility] [address] [place] [phone] Jesus Del Castillo MD [address] [facility] [address] [place] [address] 03/25/2025 1:20 PM CDT Office Visit [address] [place] [phone] Nora Chahal MD [address] [address] 04/06/2025 Ancillary Procedure [facility] [address] [place] [phone] Jesus Del Castillo MD [address] [facility] 200 [place] [address] 04/08/2025 12:50 PM CDT Office Visit [address] [place] [phone] Priscilla Lopez APRN SLITTER SCORER [address] [address] documented as of this encounter Visit Diagnoses Not on filedocumented in this encounter Additional Health Concerns Infection Onset Date Last Indicated Resolved Time 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
--- OUTSIDE RECORDS SUMMARY | 2025-01-10 14:14 | XMS_ITS | Data Portability ---
Author Organization [facility] Address [address] [place] [address] Care Team Providers Care Coding Coordinator Name Role Phone JAVIDTELM Felix Primary Care Provider Assessment No assessment recorded. Plan of Treatment Reminders Order Date Submit Date Provider Last Modified By Organization Details Last Modified Time Details Appointments ESTABLISH ED 20 2024 10:20A TEAGAN LOUIS Not available Not available Not available Lab None recorded. Referral None recorded. Procedures None recorded. Surgeries None recorded. Imaging None recorded. Medication Orders tamsulosi n 0.4 mg capsule 2024 025 [facility][id number], [address], [place], [address], 12/03/2024 12:24:34 Patient TargetsNo targets recorded. Patient Instructions Encounter Date Encounter Id Patient Instructions Last Modified By Organization Details Last Modified Time 12/03/2024 [id number] Patient is a 79-year-old male presents today for urinary retention, voiding trial. Patient with episode of urinary retention during hospitalization for congestive heart failure. He was started on tamsulosin 0.4 mg daily. Patient was able to pass a voiding trial today. Patient successfully passed voiding trial today. Did encourage plenty of fluids at home and call/return to the clinic if patient unable to urinate at home. If unable to urinate during the evening hours, should be evaluated in the ED for garcia placement. We did recommend him learn [facility]IC however patient declined. Will plan for him to continue on the tamsulosin at a dose of 0.4 mg daily and follow-up in 3 months for a recheck. [email or web address] Not available 12/03/2024 13:06:15 Reason for Referral None Reported. Results Created Date Observation Date Name Description Value Unit Range Abnormal Flag Note LastModifiedBy Organization Detail LastModifiedTime 11/26/1911/09/2024 US, renal No observ ation record ed. [email or web address] Not Available 2024 12:31:02 Result Notes None recorded. Procedures Surgical History Date Name Laterality Status Provider Name and Address Organization Details Recorded Time COMPLEX VISIT completed TEAGAN MAYFIELD [address] [place] [address],[facility] [address], [place], [address], [facility] 12/03/2024 13:05:30 Past Data Reviewed completed TEAGAN MAYFIELD [address] [place] [address],[facility] [address], [place], [address], [facility] 12/03/2024 13:05:39 5 Fill and Pull/Voiding Trial/TOV completed Belle Davalos [facility] 12/03/2024 12:15:00 5 Garcia Catheter Insertion completed Gerardo Skaggs [facility] 11/24/2024 09:34:45 5 Fill and Pull/Voiding Trial/TOV completed Gerardo Skaggs [facility] 11/24/2024 09:32:49 Imaging Results Imaging Date Name Status LastModified by Organiz ation Details LastModified Time 11/09/2024 US, renal completed [email or web address] Information no t available 11/26/2024 12:31:02 Procedure Notes None recorded. Medical Equipment None Reported. Medications Name Sig Start Date Stop Date Status Note LastModified by Organization Details LastModified Time nifedipine ER 30 mg tablet,exte nded release 24 hr TAKE 1 TABLET (30 MG) BY MOUTH ONCE DAILY BEFORE A MEAL. active Not Available Not Available No t Available fluticasone 250 mcg-salmete rol 50 mcg/dose blistr powdr for inhalation INHALE 1 PUFF BY MOUTH TWO TIMES DAILY. 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 DO NOT EXCEED 8 TABLETS PER DAY. 12/01 completed Not Available Not Available Not Available glipizide 10 mg tablet TAKE 1 TABLET (10 MG) BY MOUTH ONCE DAILY BEFORE A MEAL. 12/01 completed Not Available Not Available Not Available metoprolol succinate ER 100 mg tablet,exte nded release 24 hr TAKE 1 TABLET BY MOUTH EVERY DAY active Not Available Not Available No t Available Accu-Chek Softclix Lancets TEST 3 TIMES PER DAY 3 DAYS PER WEEK. active Not Available Not Available No t Available allopurinol 100 mg tablet TAKE ONCE DAILY, 1 TAB FOR 2 WEEKS, THEN INCREASE TO 2 TABLETS X 2 WEEKS, THEN 3 TABLETS DAILY active Not Available Not Available No t Available amoxicillin 500 mg tablet TAKE ONE TAB BY MOUTH THREE TIMES DAILY FOR FIVE DAYS 12/01 completed Not Available Not Available Not Available levothyroxi ne 25 mcg tablet TAKE 1 TABLET (25 MCG) BY MOUTH BEFORE BREAKFAST active Not Available Not Available No t Available ketorolac 0.5 % eye drops ADMINISTE R 1 DROP INTO THE LEFT EYE 4 (FOUR) TIMES A DAY. BEGIN 06/08/2024. FOLLOW SCHEDULE PROVIDED. active Not Available Not Available No t Available famotidine 20 mg tablet TAKE 1 TABLET BY MOUTH TWO TIMES DAILY. active Not Available Not Available No t Available prednisolon e acetate 1 % eye drops,suspe nsion ADMINISTE R 1 DROP INTO THE LEFT EYE 4 (FOUR) TIMES A DAY. BEGIN 06/08/2024. FOLLOW SCHEDULE PROVIDED. active Not Available Not Available No t Available tamsulosin 0.4 mg capsule TAKE 1 CAPSULE BY MOUTH EVERY DAY active Not Available Not Available No t Available sodium bicarbonate 650 mg tablet TAKE 1 TABLET (650 MG) BY MOUTH 3 TIMES DAILY. active Not Available Not Available No t Available amlodipine 10 mg tablet TAKE 1 TABLET BY MOUTH EVERY DAY active Not Available Not Available No t Available levothyroxi ne 50 mcg tablet TAKE 1 TABLET (50 MCG) BY MOUTH BEFORE BREAKFAST . DOSE INCREASE 05/08/24 active Not Available Not Available No t Available cephalexin 500 mg capsule TAKE 1 CAPSULE (500 MG) BY MOUTH 4 TIMES A DAY FOR 5 DAYS 12/01 completed Not Available Not Available Not Available gabapentin 300 mg capsule TAKE 2 CAPSULES BY MOUTH AT BEDTIME. active Not Available Not Available No t Available bumetanide 1 mg tablet TAKE 1 TABLET BY MOUTH EVERY DAY active Not Available Not Available No t Available allopurinol 300 mg tablet PLEASE SEE ATTACHED FOR DETAILED DIRECTION S active Not Available Not Available No t Available pravastatin 20 mg tablet TAKE 1 TABLET BY MOUTH EVERYDAY AT BEDTIME active Not Available Not Available No t Available furosemide 20 mg tablet TAKE 1 TABLET BY MOUTH EVERY MORNING active Not Available Not Available No t Available gabapentin 100 mg capsule TAKE 1 CAPSULE BY MOUTH TWICE A DAY active Not Available Not Available No t Available ibuprofen 600 mg tablet TAKE ONE TAB EVERY 6 TO 8 HOURS NEEDED 12/01 completed Not Available Not Available Not Available albuterol sulfate HFA 90 mcg/actuati on aerosol inhaler INHALE 1 TO 2 PUFFS BY MOUTH EVERY 4 HOURS NEEDED FOR SHORTNESS OF BREATH OR FOR WHEEZE active Not Available Not Available No t Available cefdinir 300 mg capsule TAKE 1 CAPSULE BY MOUTH EVERY DAY 12/01 completed Not Available Not Available Not Available oxycodone 5 mg tablet TAKE 0.5 TO 1 TABLET (2.5-5 MG) BY [facility] EVERY 6 HOURS NEEEDED FOR SEVERE PAIN. 12/01 completed Not Available Not Available Not Available moxifloxaci n 0.5 % eye drops ADMINISTE R 1 DROP INTO THE LEFT EYE 4 (FOUR) TIMES A DAY. BEGIN 06/08/2024. FOLLOW SCHEDULE PROVIDED. active Not Available Not Available No t Available Januvia 25 mg tablet TAKE 1 TABLET BY MOUTH EVERY DAY active Not Available Not Available No t Available Eliquis 5 mg tablet TAKE 1 TABLET BY MOUTH TWICE A DAY active Not Available Not Available No t Available Accu-Chek Guide test strips TEST 3 TIMES PER DAY THREE DAYS PER WEEK. active Not Available Not Available No t Available Accu-Chek Guide Me Glucose Meter DIRECTED. DISPENSE METER COVERED BY [employer] INSURANCE . active Not Available Not Available No t Available Vitals Date Recorded Body weight Body mass index (BMI) Body height Provider Name and Address Organization Details Last Updated DateTime 12/01/2024 519541.02 g 32.5 kg/m2 180.34 cm [facility] 12/01/2024 10:59:33 Date Recorded Body height Body mass index (BMI) Body weight Provider Name and Address Organization Details Last Updated DateTime 12/03/2024 172.72 cm 33.5 kg/m2 03980.32 g Belle Davalos [facility] 12/03/2024 12:16:54 Social History Question Answer Notes LastModified by Organizat ion Details LastModified Time Tobacco Smoking Status Never Smoker Antoinette Benja blakely [facility] 12/01/2024 11:00:03 Do You Have An Advance Directive? No [email or web address] Information not available 12/03/2024 What Is Your Level Of Alcohol Consumption? None [email or web address] Information not available 12/03/2024 What Is Your Level Of Caffeine Consumption? None [email or web address] Information not available 12/03/2024 Do You Have A Medical Power Of Hat Parts Cutter Machine? No [email or web address] Information not available 12/03/2024 What Was The Date Of Your Most Recent Tobacco Screening? 12/03/2024 [email or web address] Information not available 12/03/2024 Do You Use Any Illicit Or Recreational Drugs? No [email or web address] Information not available 12/03/2024 Has Tobacco Cessation Counseling Been Provided? No Information not available 12/01/2024 Do You Or Have You Ever Used Any Other Forms Of Tobacco Or Nicotine? No Information not available 12/01/2024 Sex: Unknown Functional Status None recorded. Mental Status None recorded. Family History Nothing Reported. Medical History Condition Response Other N High Blood Pressure Y Kidney Stones N Lung Disease N Depression Y GERD/Acid Reflux N Sexually Transmitted Infection N Cancer N High Cholesterol Y Diabetes Y Bleeding Disorder N Heart Disease N Past Encounters Encounter ID Performer Location Encounter Start Date Encounter Closed Date Diagnosis/Indication Diagnosis SNOMED-CT Code Diagnosis ICD10 Code Diagnosis Note [id number] [facility] [address] [facility] [address] [place] [address] 11/24/2024 08:40:11 11/24/2024 09:45:04 Retention of urine 681288268 R33.9 [id number] TEAGAN MAYFIELD [facility] [address] [facility] 200 [place] [address] 12/03/2024 11:43:09 12/03/2024 13:36:01 Retention of urine 912728097 R33.9 Health Concerns Section Related Observation LastModified by Organization Detai ls LastModified Time None Recorded Concern Status LastModified by Organization Details LastModified Time None Recorded Advance Directives Directive N: Payers Encounter Date Sequence Insurance Name Policy Number Policy Fuentes Covered Member ID Fuentes Member ID Guarantor Name 11/24/2024 1 MEDICA - DUAL ELIGIBLE (MEDICARE REPLACEMENT/A DVANTAGE - HMO) David Coleman [id number] David Coleman 12/03/2024 1 MEDICA - DOS ON OR AFTER 2020 - MEDICA GOVERNMENT PROGRAMS - ADVANTAGE SOLUTION (MEDICARE REPLACEMENT/A DVANTAGE - PPO) [id number] David Coleman [id number] David Coleman Notes Date Note Type Note Provider Name and Address Organization Details Recorded Time 12/03/2024 text/html Patient is a 79-year-old male presents today for urinary retention, voiding trial. Patient found to have urinary retention on 11/[address] [facility] in the setting of heart failure. He failed a voiding trial on 11/24 and had Garcia catheter replaced. He is on tamsulosin 0.4 mg daily. He notes weak force of stream, nocturia at baseline. No previous urologic history. AXEL RICO, PAC [address] [facility],[address], [place], [address], [facility] 12/03/2024 13:06:26
--- OUTSIDE RECORDS SUMMARY | 2025-01-10 14:14 | XMS_ITS | Encounter Summary ---
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 [facility] Reason for call: Lab Result Notification Lab Result (including Rx patient on, if applicable). If culture, copy of lab report at bottom. Lab Result: Urine Culture - See Below ED Rx: cefdinir (OMNICEF) 300 MG capsule - Take 1 capsule (300 mg) by mouth daily <10,000 CFU/mL Enterococcus faecalis Abnormal (NOT TESTED) <10,000 CFU/mL Staphylococcus epidermidis Abnormal (SUSCEPTIBLE) Creatinine Level (mg/dl) Creatinine Date Value Ref Range Status 11/25/2024 2.31 (H) 0.67 - 1.17 mg/dL Final 02/06/2011 0.93 0.66 - 1.25 mg/dL Final Creatinine clearance (ml/min), if applicable Serum creatinine: 2.31 mg/dL (H) 11/25/24 1343 Estimated creatinine clearance: 33.9 mL/min (A) ED Symptoms: Presented to the ED with penile pain related to his urinary catheter. Current Symptoms: Attempted to contact the patient. He did not want to provide identifiers and did not want to call me back. Patient ended the call abruptly. Will send a letter. RN Recommendations/Instructions per [facility] ED lab result protocol: [facility] ED lab result protocol utilized: Urine Culture Advise to discontinue current antibiotic. Instruct to start antibiotic: Augmentin pending patient assessment. Letter pended to be sent via USPS mail. LULÚ PRIDE RN E RESEARCH documented in this encounter Plan of Treatment Upcoming Encounters Date Type Department Care Team (Late st Contact Info) Description 02/19/2025 Ancillary Procedure [address] [place] [phone] Jesus Del Castillo MD 1600 [facility] 200 [place] [address] 03/25/2025 1:20 PM CDT Office Visit [address] [place] [phone] Nora Chahal MD [address] [facility] [place] [address] 04/06/2025 Ancillary Procedure [facility] [address] [facility] [address] [place] [address] Jesus Del Castillo MD 1600 [facility] 200 [place] [address] 04/08/2025 12:50 PM CDT Office Visit [address] [place] [phone] Priscilla Lopez APRN POWER GENERATION ENGINEER [address] [facility] [address] [place] [address] documented as of this encounter Visit Diagnoses Not on filedocumented in this encounter Additional Health Concerns Infection Onset Date Last Indicated Resolved Time 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
--- OUTSIDE RECORDS SUMMARY | 2025-01-10 14:14 | XMS_ITS | Encounter Summary ---
Author Organization [place] Address [address] [place] [address]. [place] [address] Care Team Providers Care Scooper Name Role Phone Ronniteindra Herminio Preston Primary Care Provider [phone] Nora Chahal MD Unavailable [phone] Reason for Visit * Reason Onset Date Comments AF alert 12/01/2024 Encounter Details Date Type Department Care Team (Late st Contact Info) Description 12/01/2024 Telephone [facility] [address] [facility] [address] [place] [address] Megan Rawls RN AF alert Social History Tobacco Use Types Packs/Day Years [...] in an abandoned building, in an overnight fdc, or couch-surfing.) Yes 11/05/2024 Are you worried [...] on file 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 Discussed AF and patient denies symptoms. He reports that he is taking all his medication as prescribed and says I'm taking what they told me to take. Ole is aware of upcoming office visit with Dr. Toro. Will continue to monitor. Megan Rawls RN RVISOR CUSTOMER COMPLAINT SERVICE * Telephone Encounter - Megan Rawls RN - 12/01/2024 7:36 AM CST Images from the original note were not included. Encounter Type: Alert 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 Courtesy check. Data was compiled on 11/27/24 for review and interpretation on 12/01/24. Device: [employer] Momentum. Pacing %/Programmed: AP 1%, SCIENTOLOGIST 1% at DDDR 55/130 ppm. Lead(s): stable. Battery longevity: 10yrs, 6mo estimated. Presenting: Sinus 80 bpm. Atrial high rates: since 11/11/24; One mode switch episode on 11/26/24 lasting 9hrs 17 minutes, EGM confirm AF, burden <1%, v-rates >/=120bpm ~40%. Anticoagulant: Eliquis Ventricular High rates: since 11/11/24; no VT/VF detected. Comments: Normal device function. Plan: Routed to device RN for review. Frannie Bee Device Specialist ADD: Transmission reviewed, see [facility] for details. Megan Rawls RN 12/01/24: Spoke with patient briefly. Notified patient of AF last week and asked if he recalls any symptoms. He responded with what is AF? Attempted to explain AF but patient interrupted junior technical writer stating I'm busy. Asked if there was a better time to call him and he responded with make it quick. Again attempted to explain AF and questioned if he was taking Eliquis as prescribed. He responded with what the hell, I'm busy, I have to go. When asking if he wanted to call me back he responded with I have to go, bye and hung up. New AF and recently started Eliquis. Followed by and last seen by Dr. Chahal 11/27/24. Scheduled tofollow-up with Dr. Del Castillo 12/09/24 to discuss AF and possible ablation. Megan Rawls RN RVISOR CUSTOMER COMPLAINT SERVICE documented in this encounter Plan of Treatment Upcoming Encounters Date Type Department Care Team (Late st Contact Info) Description 02/19/2025 Ancillary Procedure [facility] [address] [facility] [address] [place] [address] Jesus Del Castillo MD 1600 [facility] [address] [place] [address] 03/25/2025 1:20 PM CDT Office Visit [address] [place] [phone] Nora Chahal MD 1600 [facility] [place] [address] 04/06/2025 Ancillary Procedure [facility] [address] [facility] [address] [place] [address] Jesus Del Castillo MD 1600 [facility] [address] [place] [address] 04/08/2025 12:50 PM CDT Office Visit [facility] [address] [facility] [address] [place] [phone] Priscilla Lopez APRN CNP 1600 [facility] 200 [place], [place] [phone] documented as of this encounter Visit Diagnoses Not on filedocumented in this encounter Additional Health Concerns Infection Onset Date Last Indicated Resolved Time 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
--- OUTSIDE RECORDS SUMMARY | 2025-01-10 14:14 | XMS_ITS | Encounter Summary ---
Author Organization [facility] Address [address] [place] [address]. 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 [address] [place] [address] 03/25/2025 1:20 PM CDT Office Visit [facility] [address] [facility] [address] [place] [phone] Nora Chahal MD [address] [facility] [place] [address] 04/06/2025 Ancillary Procedure [facility] [address] [facility] [address] [place] [phone] Jesus Del Castillo MD [address] [facility] [address] [place] [address] 04/08/2025 12:50 PM CDT Office Visit [facility] [address] [facility] [address] [place] [address] Priscilla Lopez APRN [facility] [address] [facility] [address] [place] [address] documented as of this encounter Visit Diagnoses Not on filedocumented in this encounter Additional Health Concerns Infection Onset Date Last Indicated Resolved Time 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
--- OUTSIDE RECORDS SUMMARY | 2025-01-10 14:14 | XMS_ITS | Encounter Summary ---
Author Organization [facility] Address [address] [place] [address] Care Team Providers Care Quality Reviewer Name Role Phone Votel Herminio Preston Primary Care Provider [phone] Nora Chahal MD Unavailable Reason for Referral * Consultation (Routine) - Pending Review Specialty Diagnoses / Procedures Referred By Contac t Referred To Contact Cardiovascular Disease Diagnoses Paroxysmal atrial fibrillation (H) Ischemic cardiomyopathy Chronic systolic heart failure (H) Jesus Del Castillo MD [address] [facility] [address] [place] [address] Phone: tel: fax: Referral ID Status Reason Start Date Expiration Date V isits Requested Visits Authorized [id number] Pending Review 12/10/2024 12/10/2025 1 1 Question Answer Follow-up with: RAKAN - EP RAKAN Reason for follow-up: EP EP Cardiology: DEVICE Patient Scheduling Instructions: [employer] by [employer] [place] will call you to coordinate your care as prescribed by your provider. If you have concerns about scheduling, please call [phone]. Comments [employer] [place] will call you to coordinate your care as prescribed by your provider. If you have concerns about scheduling, please call [phone]. Reason for Visit * Reason Comments Follow Up * Consultation (Routine) - Pending Review Specialty Diagnoses / Procedures Referred By Contac t Referred To Contact Cardiovascular Disease Diagnoses A-fib (H) Nora Chahal MD [address] [facility], [address] [place] [address] Phone: tel: fax: Referral ID Status Reason Start Date Expiration Date V isits Requested Visits Authorized [id number] Pending Review 11/13/2024 11/13/2025 1 1 Encounter Details Date Type Department Care Team (Late st Contact Info) Description 12/10/2024 3:20 PM CDT Office Visit [facility] Deputy [address] [facility] [address] [place] [address] Jesus Del Castillo MD [address] [facility] [address] [place] [address] Paroxysmal atrial fibrillation (H) (Primary Dx); Benign essential hypertension; Ischemic cardiomyopathy; ICD (implantable cardioverter-defibril lator), dual, in situ Social History Tobacco Use Types Packs/Day Years [...] in an abandoned building, in an overnight assisted, or couch-surfing.) Yes 11/05/2024 Are you worried [...] on file 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 Gender Identity Not on file Sexual Orientation Not on file documented as of this encounter Last Filed Vital Signs Vital Sign Reading Time Taken Comments Blood Pressure 126/70 12/10/2024 3:14 PM CDT Pulse 76 12/10/2024 3:14 PM CDT Temperature - - Respiratory Rate 20 12/10/2024 3:14 PM CDT Oxygen Saturation 98% 12/10/2024 3:14 PM CDT Inhaled Oxygen Concentration - - Weight 113.4 kg (250 lb) 12/10/2024 3:14 PM CDT Height - - Body Mass Index 34.87 11/27/2024 10:43 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 [facility] Cardiac Electrophysiology [address] [facility] [address] [place] [address] Office: [phone] Cardiac Electrophysiology Consultation Patient: David Coleman : 1945 Referring Provider: Ravindra Chahal MD Primary Care Provider: Herminio Napier Primary Fire Technology Instructor: Ravindra Chahal MD CHIEF COMPLAINT/REASON FOR CONSULTATION New onset atrial fibrillation Assessment/Recommendations Paroxysmal atrial fibrillation: Patient had device diagnosed atrial fibrillation in October with 2episodes; 10 hours 50 7:53 2024 and 9 hours 17 minutes 11/26/2024. The patient reports that he was not aware of the atrial fibrillation. We discussed the underlying pathophysiology of his condition aswell as treatment options including both medical therapy and mapping/ablation. Current guidelines would suggest that patient with heart failure undergo ablation due to the high risk for significant heart failure decompensation in the setting of atrial fibrillation with loss of AV synchrony. The patient will consider the information provided and render a decision when contacted by the EP nurse dora chappell. Arrhythmia hx Dx/date: 11/26/2024 (via ICD) [id number] score = 6 (age 3, DM, HTN, CAD, CHF) Rx: Apixaban Sx: Prior AAD, AV sammie blocking agents: Metoprolol Procedures DCCV: N/A Ablation: N/A HFpEF: Chronic problem for the patient who demonstrates mild fluid overload on exam today. On further questioning the patient and his still shake a little salt on their food. They are also notroutinely reading labels. I advised him to follow a 2 g sodium diet to help avoid swings in his fluid balance and the potential need for escalating doses of diuretic. ASCVD, little traverse vessel: Patient has no signs or symptoms of coronary ischemia at this time. Dual-chamber ICD in situ: Patient's device function is normal on interrogation today. Interrogationdemonstrates <1% atrial and <1% ventricular pacing. ICD generator change 09/12/2022. The patient had a episode of ventricular tachycardia on 10/07/2024 cycle length was 310 ms and the episode hadspontaneously terminated but 2 subsequent PVCs resulted in a single ATP therapy delivery. ` Follow up/recommendations: Patient's metoprolol succinate will be increased to 100 mg daily. Patient was counseled to follow a 2 g sodium diet Plan to have the patient contacted by the EP nurse clinician next week to determine if he wishes tomove forward with mapping/ablation of his arrhythmia. Follow-up in the arrhythmia clinic with the EP RAKAN in 3 months. Time spent: 65 minutes spent on the date of the encounter doing chart review, history and exam, documentation and further activities as noted above. History of Present Illness Ole Geovanna Coleman is a 79 year old male with HFpEF, ASCVD, dual-chamber ICD in situ, and paroxysmal atrial fibrillation referred by Ravindra Chahal MD for consultation regarding treatment options for paroxysmal atrial fibrillation. Patient reports that he was unaware of the two episodes of atrial fibrillation which occurred in October. Likewise he was unaware of the VT episode in September. We discussed the underlying pathophysiology of his arrhythmia condition as well as treatment strategies. The rationale for anticoagulant therapy and the current recommendations for ablation as first-line therapy in patients with heart failure were discussed. The patient and his asked multiple pertinent quest ions which were answered. Physical Examination Review of Systems VITALS: BP 126/70 (BP Location: Right arm, Patient Position: Sitting, Cuff Size: Adult Regular) Pulse 76 Resp 20 Wt 113.4 kg (250 lb) SpO2 98% BMI 34.87 kg/m?? Wt Readings from Last 3 Encounters: 11/27/24 114.3 kg (252 lb) 11/11/24 109.8 kg (242 lb 1 oz) 09/04/24 120.7 kg (266 lb) CONSTITUTIONAL: well nourished, comfortable, no distress EYES: Conjunctivae pink, sclerae clear. E/N/T: Oral mucosa pink RESPIRATORY: Respiratory effort is normal CARDIOVASCULAR: RRR with normal S1 and S2 GASTROINTESTINAL: Abdomen without masses or tenderness EXTREMITIES: No clubbing or cyanosis. MUSCULOSKELETAL: Overall grossly normal muscle strength SKIN: Overall, skin warm and dry, no lesions. NEURO/PSYCH: Oriented x 3 with normal affect. Constitutional: No weight loss or loss of appetite Eyes: No difficulty with vision, no double vision, no dry eyes ENT: No sore throat, difficulty swallowing; changes in hearing or tinnitus Cardiovascular: As detailed above Respiratory: No cough Musculoskeletal No joint pain, muscle aches Neurologic: No syncope, lightheadedness, fainting spells Hematologic: No easy bruising, excessive bleeding tendency Gastrointestinal: No jaundice, abdominal pain or abdominal bloating Genitourinary: No changes in urinary habits, no trouble urinating Psychiatric: No anxiety or depression Medical History Surgical History Past Medical History: Diagnosis Date Examination of participant in clinical trial 02/13/2014 FOURIER study GERD (gastroesophageal reflux disease) High cholesterol 1989 patient estimated Hypertension 1989 patient estimated Low back pain 08/08/2017 Myocardial infarction (H) 2010 Past Surgical History: Procedure Laterality Date CARDIAC CATHETERIZATION 2013 CARDIAC CATHETERIZATION 03/04/2017 CARDIAC CATHETERIZATION N/A 03/04/2017 Procedure: Coronary Angiogram; Surgeon: Kevin Diallo MD; Location: [facility] 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 Web Developer; Service: CV RIGHT HEART CATH MEASUREMENTS RECORDED N/A 11/05/2024 Procedure: Right Heart Catheterization with Shunt Run; Surgeon: Jarrett La MD; Location: [facility] CV EP ICD GENERATOR REPLACEMENT DUAL N/A 09/12/2022 Procedure: Implantable Cardioverter Defibrillator Generator Replacement Dual; Surgeon: Jesus Del Castillo MD; Location: [facility] CV NV L HRT CATH W/NJX L VENTRICULOGRAPHY IMG S&I N/A 03/04/2017 Procedure: Left Heart Catheterization with Left Ventriculogram; Surgeon: Kevin Diallo MD; Location: [facility] Senior Web Developer; Service: Cardiology Family History Social History No family history on file. Social History Tobacco Use Smoking status: Never Smokeless tobacco: Former Types: Chew Substance Use Topics Alcohol use: No Drug use: No Medications Allergies Current Outpatient Medications: albuterol (PROAIR HFA/PROVENTIL HFA/VENTOLIN HFA) 108 (90 Base) MCG/ACT inhaler, Inhale 1-2 puffs into the lungs every 4 hours as needed for shortness of breath, wheezing or cough., Disp: , Rfl: allopurinol (ZYLOPRIM) 300 MG tablet, Take 300 mg by mouth daily., Disp: , Rfl: amLODIPine (NORVASC) 10 MG tablet, [AMLODIPINE (NORVASC) 10 MG TABLET] Take 10 mg by mouth daily., Disp: , Rfl: apixaban ANTICOAGULANT (ELIQUIS ANTICOAGULANT) 5 MG tablet, Take 1 tablet (5 mg) by mouth 2 times daily., Disp: 60 tablet, Rfl: 3 aspirin 81 MG EC tablet, [ASPIRIN 81 MG EC TABLET] Take 81 mg by mouth daily., Disp: , Rfl: blood glucose (NO BRAND SPECIFIED) test strip, TEST 3 TIMES PER DAY THREE DAYS PER WEEK., Disp: , Rfl: blood glucose monitoring (SOFTCLIX) lancets, TEST 3 TIMES PER DAY 3 DAYS PER WEEK., Disp: , Rfl: Blood Glucose Monitoring Suppl (ACCU-CHEK GUIDE ME) w/Device KIT, DIRECTED. DISPENSE METER COVERED BY PTS INSURANCE., Disp: , Rfl: bumetanide (BUMEX) 1 MG tablet, Take 1 tablet (1 mg) by mouth daily., Disp: 30 tablet, Rfl: 0 cefdinir (OMNICEF) 300 MG capsule, Take 1 capsule (300 mg) by mouth daily., Disp: 7 capsule, Rfl: 0 famotidine (PEPCID) 20 MG tablet, Take 20 mg by mouth 2 times daily., Disp: , Rfl: fluticasone-salmeterol (ADVAIR) 250-50 MCG/ACT inhaler, INHALE 1 PUFF BY MOUTH TWO TIMES DAILY., Disp: , Rfl: gabapentin (NEURONTIN) 100 MG capsule, Take 1 capsule (100 mg) by mouth 2 times daily., Disp: 60 capsule, Rfl: 0 levothyroxine (SYNTHROID/LEVOTHROID) 50 MCG tablet, Take 50 mcg by mouth daily., Disp: , Rfl: metoprolol succinate ER (TOPROL XL) 50 MG 24 hr tablet, Take 1 tablet (50 mg) by mouth daily., Disp: 30 tablet, Rfl: 0 multivitamin therapeutic (THERAGRAN) tablet, [MULTIVITAMIN THERAPEUTIC (THERAGRAN) TABLET] Take 1 tablet by mouth daily., Disp: , Rfl: oxyCODONE (ROXICODONE) 5 MG tablet, Take 0.5-1 tablets (2.5-5 mg) by mouth every 6 hours as needed for severe pain., Disp: 12 tablet, Rfl: 0 polyethylene glycol (MIRALAX) 17 GM/Dose powder, Take 17 g by mouth daily as needed for constipation., Disp: , Rfl: pravastatin (PRAVACHOL) 20 MG tablet, Take 1 tablet (20 mg) by mouth at bedtime., Disp: 30 tablet, Rfl: 0 predniSONE (DELTASONE) 10 MG tablet, Take 2 tablets by mouth daily as needed (Gout Attack). At the onset of a gout attack, Disp: , Rfl: senna-docusate (SENOKOT-S/PERICOLACE) 8.6-50 MG tablet, Take 2 tablets by mouth 2 times daily., Disp: , Rfl: sitagliptin (JANUVIA) 25 MG tablet, Take 1 tablet (25 mg) by mouth daily., Disp: 30 tablet, Rfl: 0 sodium bicarbonate 650 MG tablet, Take 1 tablet (650 mg) by mouth 3 times daily., Disp: 90 tablet, Rfl: 0 tamsulosin (FLOMAX) 0.4 MG capsule, Take 1 capsule (0.4 mg) by mouth daily., Disp: 30 capsule, Rfl:0 No Known Allergies Lab Results Chemistry CBC Cardiac Enzymes/BNP/TSH/INR Recent Labs Lab Test 11/25/24 1343 NA 130* POTASSIUM 5.1 CHLORIDE 98 CO2 21* GLC 152* BUN 43.8* CR 2.31* GFRESTIMATED 28* ROSY 8.7* Recent Labs Lab Test 11/25/24 1343 11/11/24 0502 11/10/24 0514 CR 2.31* 2.91* 2.99* Recent Labs Lab Test 11/25/24 1343 WBC 19.7* HGB 11.2* HCT 32.8* MCV 91 PLT 273 Recent Labs Lab Test 11/25/24 1343 11/09/24 0443 11/07/24 0441 HGB 11.2* 12.6* 12.9* No results for input(s): TROPONINI in the last 31536 hours. Recent Labs Lab Test 11/05/24 1537 09/04/24 1312 08/11/19 1552 BNP -- -- 14 NTBNPI 3,284* -- -- NTBNP -- 2,164* -- Recent Labs Lab Test 11/06/24 0427 TSH 3.08 No results for input(s): INR in the last 09027 hours. Data Review ECGs dated 11/05/2024 (tracings independently reviewed) Normal sinus rhythm with apparent septal infarct and no acute ST-T wave changes. Echocardiogram (TTE) dated 10/08/2024 The left ventricle is normal in size with mild concentric left ventricular hypertrophy. Left ventricular function is decreased. The ejection fraction is 50-55% (borderline). Normal right ventricle size and systolic function. There is a pacemaker lead in the right ventricle. Normal left atrial size. No hemodynamically significant valvular abnormalities on 2D or color flow imaging. Right ventricular systolic pressure is elevated, consistent with mild pulmonary hypertension. There is no comparison study available. Cc: documented in this encounter Plan of Treatment Upcoming Encounters Date Type Department Care Team (Late st Contact Info) Description 02/19/2025 Ancillary Procedure [facility] [address] [place] [phone] Jesus Del Castillo MD [address] [facility] [address] [place], [place] [phone] 03/25/2025 1:20 PM CDT Office Visit [place] [id number] [facility] [address] [place] [phone] Nora Chahal MD [address] [facility], [address] [place], [place] [address] 04/06/2025 Ancillary Procedure [facility] [address] [facility] [address] [place] [phone] Jesus Del Castillo MD [address] [facility] [address] [place], [place] [phone] 04/08/2025 12:50 PM CDT Office Visit [place] [id number] [facility] [address] [place] [phone] Priscilla Lopez APRN CNP [address] [facility] [address] [place], [place] [id number] Scheduled Referrals Name Type Priority Associated Diagnoses Orde r Schedule Follow-Up with Cardiology Referral Routine: Next available opening Paroxysmal atrial fibrillation (H) Ischemic cardiomyopathy Expected: 03/12/2025 (Approximate), Expires: 12/10/2026 documented as of this encounter Procedures Procedure Name Priority Date/Time Associated Diagnosis Comments PATHOLOGY RESULT - HIM SCAN 12/10/2024 12:00 AM CDT documented in this encounter Results * Pathology Result (12/10/2024 12:00 AM CDT) 12/10/2024 us Provider Outside LAB - [facility] SPECIAL DIAG ORDER NIVIA Final Result documented in this encounter Visit Diagnoses Diagnosis Paroxysmal atrial fibrillation (H)- Primary Atrial fibrillation Benign essential hypertension Essential hypertension, benign Ischemic cardiomyopathy Other specified forms of chronic ischemic heart disease ICD (implantable cardioverter-defibrillator), dual, in situ documented in this encounter Additional Health Concerns Infection Onset Date Last Indicated Resolved Time 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
--- OUTSIDE RECORDS SUMMARY | 2025-01-10 14:14 | XMS_ITS | Encounter Summary ---
Author Organization [facility] Address [address] [place] [address]. 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 [address] [place] [address] 03/25/2025 1:20 PM CDT Office Visit [facility] [address] [facility] [address] [place] [phone] Nora Chahal MD [address] [facility] [place] [address] 04/06/2025 Ancillary Procedure [facility] [address] [facility] [address] [place] [phone] Jesus Del Castillo MD [address] [facility] [address] [place] [address] 04/08/2025 12:50 PM CDT Office Visit [facility] [address] [facility] [address] [place] [address] Priscilla Lopez APRN [facility] [address] 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 [place] [address] Assigned Heart and Vascular Provider 09/21/24 documented as of this encounter
--- OUTSIDE RECORDS SUMMARY | 2025-01-10 14:14 | XMS_ITS | Clinical Summary ---
Author Organization [facility] Address [address] [place] [address] Care Team Providers Care Education Administrator Name Role Phone Voteindra Herminio Preston Primary Care Provider [phone] Nora Chahal MD Unavailable [phone] Allergies No known active allergies Medications aspirin 81 MG EC tablet [ASPIRIN 81 MG EC TABLET] Take 81 mg by mouth daily. 08/10/20 14 Active multivitamin therapeutic (THERAGRAN) tablet [MULTIVITAMIN THERAPEUTIC (THERAGRAN) TABLET] Take 1 tablet by mouth daily. 08/10/20 14 Active amLODIPine (NORVASC) 10 MG tablet [AMLODIPINE (NORVASC) 10 MG TABLET] Take 10 mg by mouth daily. 01/12/20 20 Active albuterol (PROAIR HFA/PROVENTIL HFA/VENTOLIN HFA) 108 (90 Base) MCG/ACT inhaler Inhale 1-2 puffs into the lungs every 4 hours as needed for shortness of breath, wheezing or cough. 05/27/20 24 Active allopurinol (ZYLOPRIM) 300 MG tablet Take 300 mg by mouth daily. Active famotidine (PEPCID) 20 MG tablet Take 20 mg by mouth 2 times daily. 12/24/19 24 Active fluticasone-salmet emily (ADVAIR) 250-50 MCG/ACT inhaler INHALE 1 PUFF BY MOUTH TWO TIMES DAILY. Active Blood Glucose Monitoring Suppl (ACCU-CHEK GUIDE PA) w/Device KIT DIRECTED. DISPENSE METER COVERED BY PTS INSURANCE. 12/04/19 24 Active blood glucose (NO BRAND SPECIFIED) test strip TEST 3 TIMES PER DAY THREE DAYS PER WEEK. Active blood glucose monitoring (SOFTCLIX) lancets TEST 3 TIMES PER DAY 3 DAYS PER WEEK. 12/09/19 24 Active levothyroxine (SYNTHROID/LEVOTHR OID) 50 MCG tablet Take 50 mcg by mouth daily. 08/13/20 24 Active predniSONE (DELTASONE) 10 MG tablet Take 2 tablets by mouth daily as needed (Gout Attack). At the onset of a gout attack 01/24/20 23 Active bumetanide (BUMEX) 1 MG tabletIndications: Ischemic cardiomyopathy,Michelle rtness of breath,Elevated brain natriuretic peptide (BNP) level Take 1 tablet (1 mg) by mouth daily. 30 tablet 11/11/19 25 Active pravastatin (PRAVACHOL) 20 MG tabletIndications: Hyperlipidemia LDL goal <70 Take 1 tablet (20 mg) by mouth at bedtime. 30 tablet 11/11/19 25 Active gabapentin (NEURONTIN) 100 MG capsuleIndications :Neuropathy Take 1 capsule (100 mg) by mouth 2 times daily. 60 capsule 11/11/19 25 Active polyethylene glycol (MIRALAX) 17 GM/Dose powderIndications: Other constipation Take 17 g by mouth daily as needed for constipation. 11/11/19 25 Active senna-docusate (SENOKOT-S/PERICOL DANIELLE) 8.6-50 MG tabletIndications: Other constipation Take 2 tablets by mouth 2 times daily. 11/11/19 25 Active sodium bicarbonate 650 MG tabletIndications: Metabolic acidosis Take 1 tablet (650 mg) by mouth 3 times daily. 90 tablet 11/11/19 25 Active tamsulosin (FLOMAX) 0.4 MG capsuleIndications :Benign prostatic hyperplasia with urinary retention Take 1 capsule (0.4 mg) by mouth daily. 30 capsule 11/12/19 25 Active sitagliptin (JANUVIA) 25 MG tabletIndications: Type 2 diabetes mellitus with chronic kidney disease, without long-term current use of insulin, unspecified CKD stage (H) Take 1 tablet (25 mg) by mouth daily. 30 tablet 11/11/19 25 Active apixaban ANTICOAGULANT (ELIQUIS ANTICOAGULANT) 5 MG tabletIndications: A-fib (H) Take 1 tablet (5 mg) by mouth 2 times daily. 60 tablet 3 11/13/19 25 Active cefdinir (OMNICEF) 300 MG capsule Take 1 capsule (300 mg) by mouth daily. 7 capsule 11/25/19 25 Active oxyCODONE (ROXICODONE) 5 MG tablet Take 0.5-1 tablets (2.5-5 mg) by mouth every 6 hours as needed for severe pain. 12 tablet 11/25/19 25 Active metoprolol succinate ER (TOPROL XL) 100 MG 24 hr tabletIndications: Paroxysmal atrial fibrillation (H),Ischemic cardiomyopathy Take 1 tablet (100 mg) by mouth daily. 30 tablet 5 12/11/19 25 Active Active Problems Problem Noted Date Diagnosed Date Class 2 severe obesity due t o excess calories with serious comorbidity in adult 09/04/2024 CKD (chronic kidney disease) stage 4, GFR 15-29 ml/min 09/04/2024 Type 2 diabetes mellitus, wi [facility] long-term current use of insulin 06/07/2021 Ischemic cardiomyopathy 03/15/2021 SINCLAIR (dyspnea on exertion) 08/11/2019 ICD (implantable cardioverter-defibrillator)tameka, in situ 06/10/2018 Overview (03/31/2021): [employer] Teligen DOI: 02/17/11 Dr. Ed Ley FARZANA on CPAP 02/18/2017 Hypertension Overview (03/31/2021): Created by Conversion Replacement Utility updated for latest IMO load Coronary Artery Disease Overview (03/31/2021): Created by Conversion Replacement Utility updated for latest IMO load Hypercholesteremia Overview (03/14/2021): Created by Conversion Paroxysmal atrial fibrillation Overview (12/10/2024): Oct 2024 Ventricular Fibrillation Overview (03/14/2021): Created by Conversion Implantable cardioverter-def ibrillator (ICD) at end of battery life Resolved Problems Problem Noted Date Diagnosed Date Resolved Date Status post coronary angiogram 11/05/2024 11/27/2024 Ischemic cardiomyopathy 12/15/2019 04/0 10/2020 Abnormal stress test 03/04/2017 024 Obesity (BMI 35.0-39.9 without comorbidity) 02/17/2016 09/04/2024 Examination of participant in clinical trial 4 06/07/2021 Overview (03/14/2021): FOURIER study Cardiomyopathy 06/07/2021 Overview (03/14/2021): Created by Conversion Encounters Date Type Department Care Team Description 12/11/[address] [place] [phone] Sulema Delacruz RN Patient/info Update 12/10/2024 3:20 PM CDT Office Visit [address] [place] [phone] Jesus Del Castillo MD Paroxysmal atrial fibrillation (H) (Primary Dx); Benign essential hypertension; Ischemic cardiomyopathy; ICD (implantable cardioverter-defibrill ator), dual, in situ 12/10/2024 2:30 PM CDT Ancillary Procedure [address] [place] [phone] Jesus Del Castillo MD ICD (implantable cardioverter-defibrill ator) battery depletion (Primary Dx); Sick sinus syndrome (H) 12/10/2024 Travel 12/01/[address] [place] [phone] Megan Rawls RN AF alert 11/29/2024 Telephone [facility] [place] [phone] Lulú Pride RN Results 11/27/2024 10:50 AM ENGRAVINGS POLISHER Office Visit [address] [place] [phone] Nora Chahal MD Acute diastolic heart failure (H) (Primary Dx); Coronary atherosclerosis due to lipid rich plaque; Ischemic cardiomyopathy; ICD (implantable cardioverter-defibrill ator), dual, in situ; Hypertension; Hypercholesteremia; Class 2 severe obesity due to excess calories with serious comorbidity and body mass index (BMI) of 35.0 to 35.9 in adult (H); FARZANA on CPAP; Type 2 diabetes mellitus without complication, without long-term current use of insulin (H); CKD (chronic kidney disease) stage 4, GFR 15-29 ml/min (H) 11/27/2024 Ancillary Procedure [address] [place] [phone] Jesus Del Castillo MD ICD (implantable cardioverter-defibrill ator) battery depletion; Sick sinus syndrome (H) 11/27/2024 Travel 11/25/2024 2:52 PM ENGRAVINGS POLISHER - 11/25/2024 3:09 PM ENGRAVINGS POLISHER Emergency [facility] Emergency Room [address] [place] [phone] Catalina Wright PA-C UTI (urinary tract infection); Chi catheter problem, initial encounter Discharge Disposition: Home or Self Care 11/24/2024 8:11 PM ENGRAVINGS POLISHER - 11/24/2024 11:22 PM ENGRAVINGS POLISHER Emergency [facility] Emergency Room [address] [place] [phone] Martinez Sales MD Peake, Benjamin J, MD Chi catheter problem, initial encounter Discharge Disposition: Home or Self Care 11/24/2024 Travel 11/12/[address] [phone] Sammie Melendez, RN Alert for A.fib, Not on OAC 11/11/2024 Ancillary Procedure [address] [place] [phone] Jesus Del Castillo MD ICD (implantable cardioverter-defibrill ator) battery depletion; Sick sinus syndrome (H) 11/06/[address] [place] [phone] Esperanza Vivienne LAITH Burrell 11/05/2024 10:30 AM ENGRAVINGS POLISHER - 11/05/2024 12:30 PM ENGRAVINGS POLISHER Surgery [address] [phone] Jarrett Porras MD Right Heart Catheterization with [place] Run 11/05/2024 7:12 AM ENGRAVINGS POLISHER - 11/11/2024 3:04 PM ENGRAVINGS POLISHER Hospital Encounter [address] [phone] Jarrett Porras MD Halla, John Charles, DO Geiger, Nicholas, DO Benign essential hypertension (Primary Dx); Ischemic cardiomyopathy; Acute diastolic heart failure (H); Orthopnea; SINCLAIR (dyspnea on exertion); Shortness of breath; Elevated brain natriuretic peptide (BNP) level; Other constipation; Benign prostatic hyperplasia with urinary retention; Metabolic acidosis; Hyperlipidemia LDL goal <70; Neuropathy; Type 2 diabetes mellitus with chronic kidney disease, without long-term current use of insulin, unspecified CKD stage (H) Discharge Disposition: Home or Self Care 11/05/2024 Travel 11/04/2024 9:00 AM ENGRAVINGS POLISHER Lab [address] [place] [phone] Pre-procedure lab exam 11/04/2024 Travel 11/02/2024 Prep for Procedure [address] [phone] Jeannie Theodore RN Ischemic cardiomyopathy (Primary Dx); SINCLAIR (dyspnea on exertion); Shortness of breath; Acute diastolic heart failure (H) 10/21/2024 Orders Only [address] [phone] Reported, Patient 10/21/2024 Telephone [facility] [address] [facility] [address] [place] [phone] Jeannie Theodore, RN BMP Results 10/12/2024 Orders Only [facility] [address] [facility] [address] [place] [phone] Reported, Patient 10/12/2024 Telephone [facility] [address] [facility] [address] [place] [phone] Jeannie Theodore, memory care program director Question (Bumex) from Last 3 Months Immunizations Name Administration Dates Next Due COVID-19 Monovalent 18+ (Moderna) 01/09/2021, Flu 65+ (Fluad) 09/01/2024,07/09/2017 Influenza (High Dose) Trival ent,PF (Fluzone) 06/01/2024,06/23/2019,08/19/2014 Influenza (IIV3) PF 08/12/2013,09/14/2009,1998 Influenza Vaccine 65+ (FLUAD) 07/30/2023, 020 Influenza, Split Virus, Triv alent, Pf (Fluzone\Fluarix) 08/01/2011 Pneumo Conj 13-V (2010&after) 08/19/2014 Pneumococcal 23 valent 01/09/2011 TD,PF 7+ (Tenivac) 03/11/2019 TDAP (Adacel,Boostrix) 05/21/2007 Td (Adult), Adsorbed 06/02/1996 Zoster recombinant adjuvanted (Shingrix) 019,06/23/2019 Zoster vaccine, live 01/09/2011 Social History Tobacco Use Types Packs/Day Years [...] Answer Date Recorded Do you have housing? (Brigitte bejarano is defined as stable permanent housing and does not include staying ouside in a car, in a tent, in an abandoned building, in an overnight usp, or couch-surfing.) Yes 11/05/2024 Are you worried [...] on file Legal Sex Male 5:07 AM ENGRAVINGS POLISHER Gender Identity Not on file Sexual Orientation Not on file Last Filed Vital Signs Vital Sign Reading Time Taken Comments Blood Pressure 126/70 12/10/2024 3:14 PM CDT Pulse 76 12/10/2024 3:14 PM CDT Temperature 36.3 C (97.4 F) 11/25/2024 10:21 AM ENGRAVINGS POLISHER Respiratory Rate 20 12/10/2024 3:14 PM CDT Oxygen Saturation 98% 12/10/2024 3:14 PM CDT Inhaled Oxygen Concentration - - Weight 113.4 kg (250 lb) 12/10/2024 3:14 PM CDT Height 180.3 cm (5' 11) 11/27/2024 10:43 AM ENGRAVINGS POLISHER Body Mass Index 34.87 11/27/2024 10:43 AM ENGRAVINGS POLISHER Plan of Treatment Upcoming Encounters Date Type Department Care Team (Late st Contact Info) Description 02/19/2025 Ancillary Procedure [facility] [address] [facility] [address] [place] [phone] Jesus Del Castillo MD [address] [facility] [address] [place] [address] 03/25/2025 1:20 PM CDT Office Visit [address] [place] [phone] Nora Chahal MD [address] [facility], [address] [place] [address] 04/06/2025 Ancillary Procedure [facility] [address] [facility] [address] [place] [phone] Jesus Del Castillo MD [address] [facility] [address] [place] [address] 04/08/2025 12:50 PM CDT Office Visit [address] [place] [phone] Priscilla Lopez APRN BLUE SPLIT TRIMMER [address] [facility] [address] [place] [address] Health Maintenance Due Date Last Done Comments ADVANCE CARE PLANNING 1946 ANNUAL REVIEW OF HM ORDERS 1946 DIABETIC FOOT EXAM 1946 HF ACTION PLAN 1946 MICROALBUMIN 1946 PARATHYROID 1946 URIC ACID 1946 FALL RISK ASSESSMENT 2011 RSV VACCINE (1 - 1-dose 75+ series) 2021 EYE EXAM 01/31/2024 01/30/2023 COVID-19 Vaccine ( season) 2024 07/30/2023, 10/18/2021, 01/09/2021, Additional history exists A1C 02/01/2025 11/04/2024, 02/11/2011 BMP 02/22/2025 11/25/2024, 10/31, 11/10/2024, Additional history exists MEDICARE ANNUAL WELLNESS VISIT 03/03/2025 03/03/2024, 01/23/2023, 01/11/2022, Additional history exists HEMOGLOBIN 05/25/2025 11/25/2024, 10/31, 11/07/2024, Additional history exists LIPID 11/04/2025 11/04/2024, 030 03/2014, 02/08/2011 ALT 11/06/2025 11/06/2024, 02/06/2011 CBC 11/25/2025 11/25/2024, 04/2025, 11/06/2024, Additional history exists DTAP/TDAP/TD IMMUNIZATION (3 - Td or Tdap) 03/11/2029 03/11/2019, 05/21/2007, 06/02/1996 HEPATITIS C SCREENING Completed 08/12/2013 Pneumococcal Vaccine: 50+ Years Completed 08/19/2014, 01/09/2011 COLORECTAL CANCER SCREENING Discontinued FIT Discontinued 03/22/2019 ZOSTER IMMUNIZATION Completed 09/15/2019, 06/23/2019, 01/09/2011 INFLUENZA VACCINE Completed 09/01/2024, , 07/30/2023, Additional history exists ALK PHOS Completed 11/06/2024, 02/06/2011 TSH W/FREE T4 REFLEX Completed 11/06/2024 PHOSPHORUS Completed 11/11/2024, 10/31, 11/08/2024, Additional history exists URINALYSIS Completed 11/24/2024, 10/31, 11/09/2024, Additional history exists PHQ-2 (once per calendar year) Completed 11/27/[address] COLONOGRAPHY Discontinued FLEX SIG Discontinued HPV IMMUNIZATION Aged Out No longer e ligible based on patient's age to complete this topic MENINGITIS IMMUNIZATION Aged Out No l onger eligible based on patient's age to complete this topic sDNA (Cologuard) Discontinued Medical Devices Implanted Type Area [employer] Spacelift Device Identifier Shelf Expiration Date Model / Serial / Lot Icd Momentum El D121 - [id number] Implanted:Qty: 1 on 09/12/2022 at [facility] ICD Left: Chest Wall [employer] 07/03/2024 D121 / [id number] / [id number] [place]* 4470 Fineline Ii Sterox Ez [id number] Implanted:01/29 (Quantity not on file) Leads [employer] 4470 FINELINE II STEROX EZ / [id number] / Guidant Pamela 0158 [place] [id number] Implanted:01/29 (Quantity not on file) Leads [employer]- 0158 END[place] RELIANCE / [id number] / Explanted Type Area [employer] Spacelift Device Identifier Shelf Expiration Date Model / Serial / Lot [place]ie* E110 Teligen 100 [id number] Implanted:02/17 (Quantity not on file) Explanted:Qty: 1 on 09/12/2022 by Jesus Del Castillo MD ICD [employer] E110 TELIGEN 100 / [id number] / Procedures Procedure Name Priority Date/Time Associated Diagnosis Comments ICD DEVICE PROGRAMMING EVAL, DUAL LEAD ICD Routine 12/10/2024 1:56 PM CDT ICD (implantable cardioverter-defib rillator) battery depletion Sick sinus syndrome (H) PATHOLOGY RESULT - HIM SCAN 12/10/2024 12:00 AM CDT COURTESY DEVICE CHECK Routine 12/01/2024 7:03 AM ENGRAVINGS POLISHER ICD (implantable cardioverter-defib rillator) battery depletion Sick sinus syndrome (H) CBC WITH PLATELETS & DIFFERENTIAL STAT 11/25/2024 1:43 PM ENGRAVINGS POLISHER CBC WITH PLATELETS AND DIFFERENTIAL STAT 11/25/2024 1:43 PM ENGRAVINGS POLISHER BASIC METABOLIC PANEL STAT 11/25/2024 1:43 PM ENGRAVINGS POLISHER URINE CULTURE STAT 11/24/2024 9:59 PM ENGRAVINGS POLISHER ROUTINE UA WITH MICROSCOPIC REFLEX TO CULTURE STAT 11/24/2024 9:59 PM ENGRAVINGS POLISHER INTERROGATION DEVICE EVAL REMOTE ICD UP TO 90 Routine 11/12/2024 8:10 AM ENGRAVINGS POLISHER ICD (implantable cardioverter-defib rillator) battery depletion Sick sinus syndrome (H) GLUCOSE BY METER Routine 11/11/2024 11:5 1 AM ENGRAVINGS POLISHER GLUCOSE BY METER Routine 11/11/2024 8:12 AM ENGRAVINGS POLISHER RENAL PANEL Routine 11/11/2024 5:02 AM ENGRAVINGS POLISHER GLUCOSE BY METER Routine 11/11/2024 2:09 AM ENGRAVINGS POLISHER GLUCOSE BY METER Routine 11/10/2024 10:0 7 PM ENGRAVINGS POLISHER UA MACROSCOPIC WITH REFLEX TO MICRO AND CULTURE Routine 11/10/2024 8:31 PM ENGRAVINGS POLISHER GLUCOSE BY METER Routine 11/10/2024 6:01 PM ENGRAVINGS POLISHER GLUCOSE BY METER Routine 11/10/2024 12:2 7 PM ENGRAVINGS POLISHER GLUCOSE BY METER Routine 11/10/2024 8:05 AM ENGRAVINGS POLISHER EXTRA PURPLE TOP EDTA (LAB USE ONLY) Routine 11/10/2024 5:15 AM ENGRAVINGS POLISHER BASIC METABOLIC PANEL Routine 11/10/2024 5:14 AM ENGRAVINGS POLISHER GLUCOSE BY METER Routine 11/09/2024 9:29 PM ENGRAVINGS POLISHER GLUCOSE BY METER Routine 11/09/2024 5:19 PM ENGRAVINGS POLISHER ROUTINE UA WITH MICROSCOPIC REFLEX TO CULTURE Routine 11/09/2024 5:15 PM ENGRAVINGS POLISHER SODIUM RANDOM URINE Routine 11/09/2024 5 :15 PM ENGRAVINGS POLISHER US RENAL COMPLETE NON-VASCULAR Routine 11/09/2024 3:50 PM ENGRAVINGS POLISHER GLUCOSE BY METER Routine 11/09/2024 12:0 0 PM ENGRAVINGS POLISHER FOLATE Routine 11/09/2024 11:34 AM ENGRAVINGS POLISHER GLUCOSE BY METER Routine 11/09/2024 7:54 AM ENGRAVINGS POLISHER CK TOTAL Add-On 11/09/2024 4:43 AM ENGRAVINGS POLISHER VITAMIN B12 Add-On 11/09/2024 4:43 AM ENGRAVINGS POLISHER MAGNESIUM Routine 11/09/2024 4:43 AM ENGRAVINGS POLISHER RENAL PANEL Routine 11/09/2024 4:43 AM ENGRAVINGS POLISHER HEMOGLOBIN Routine 11/09/2024 4:43 AM ENGRAVINGS POLISHER GLUCOSE BY METER Routine 11/08/2024 10:2 8 PM ENGRAVINGS POLISHER GLUCOSE BY METER Routine 11/08/2024 4:55 PM ENGRAVINGS POLISHER GLUCOSE BY METER Routine 11/08/2024 12:1 8 PM ENGRAVINGS POLISHER GLUCOSE BY METER Routine 11/08/2024 7:20 AM ENGRAVINGS POLISHER EXTRA PURPLE TOP EDTA (LAB USE ONLY) Routine 11/08/2024 4:47 AM ENGRAVINGS POLISHER RENAL PANEL Routine 11/08/2024 4:46 AM ENGRAVINGS POLISHER GLUCOSE BY METER Routine 11/07/2024 5:16 PM ENGRAVINGS POLISHER GLUCOSE BY METER Routine 11/07/2024 11:3 6 AM ENGRAVINGS POLISHER GLUCOSE BY METER Routine 11/07/2024 8:19 AM ENGRAVINGS POLISHER CBC WITH PLATELETS & DIFFERENTIAL Routine 11/07/2024 4:41 AM ENGRAVINGS POLISHER CBC WITH PLATELETS AND DIFFERENTIAL Routine 11/07/2024 4:41 AM ENGRAVINGS POLISHER RENAL PANEL Routine 11/07/2024 4:41 AM ENGRAVINGS POLISHER GLUCOSE BY METER Routine 11/06/2024 10:5 6 PM ENGRAVINGS POLISHER GLUCOSE BY METER Routine 11/06/2024 4:57 PM ENGRAVINGS POLISHER POTASSIUM Routine 11/06/2024 3:27 PM ENGRAVINGS POLISHER GLUCOSE BY METER Routine 11/06/2024 12:0 9 PM ENGRAVINGS POLISHER GLUCOSE BY METER Routine 11/06/2024 7:30 AM ENGRAVINGS POLISHER CBC WITH PLATELETS & DIFFERENTIAL Routine 11/06/2024 4:27 AM ENGRAVINGS POLISHER TSH WITH FREE T4 REFLEX Add-On 11/06/2024 4:27 AM ENGRAVINGS POLISHER CBC WITH PLATELETS AND DIFFERENTIAL Routine 11/06/2024 4:27 AM ENGRAVINGS POLISHER COMPREHENSIVE METABOLIC PANEL Routine 11/06/2024 4:27 AM ENGRAVINGS POLISHER GLUCOSE BY METER Routine 11/05/2024 9:20 PM ENGRAVINGS POLISHER MRSA CULTURE Routine 11/05/2024 9:02 PM ENGRAVINGS POLISHER POTASSIUM Timed 11/05/2024 6:57 PM ENGRAVINGS POLISHER GLUCOSE BY METER Routine 11/05/2024 5:20 PM ENGRAVINGS POLISHER NT PROBNP INPATIENT Routine 11/05/2024 3 :37 PM ENGRAVINGS POLISHER PROTEIN RANDOM URINE Routine 11/05/2024 3:19 PM ENGRAVINGS POLISHER UA MACROSCOPIC WITH REFLEX TO MICRO AND CULTURE Routine 11/05/2024 3:19 PM ENGRAVINGS POLISHER GLUCOSE BY METER Routine 11/05/2024 11:0 1 AM ENGRAVINGS POLISHER CV RIGHT HEART CATH MEASUREMENTS RECORDED Routine 11/05/2024 9:56 AM ENGRAVINGS POLISHER Ischemic cardiomyopathy Acute diastolic heart failure (H) Orthopnea SINCLAIR (dyspnea on exertion) BLOOD GAS VENOUS POCT Routine 11/05/2024 9:42 AM ENGRAVINGS POLISHER BLOOD GAS VENOUS POCT Routine 11/05/2024 9:40 AM ENGRAVINGS POLISHER BLOOD GAS VENOUS POCT Routine 11/05/2024 9:38 AM ENGRAVINGS POLISHER BLOOD GAS VENOUS POCT Routine 11/05/2024 9:37 AM ENGRAVINGS POLISHER GLUCOSE BY METER Routine 11/05/2024 7:55 AM ENGRAVINGS POLISHER BASIC METABOLIC PANEL Add-On 11/05/2024 7:35 AM ENGRAVINGS POLISHER POTASSIUM Routine 11/05/2024 7:35 AM ENGRAVINGS POLISHER ECG 12-LEAD WITH MUSE SJN,SJO,WWH Routine 11/05/2024 7:27 AM ENGRAVINGS POLISHER Ischemic cardiomyopathy Acute diastolic heart failure (H) SINCLAIR (dyspnea on exertion) Shortness of breath EKG CARDIAC - HIM SCAN 12:00 AM ENGRAVINGS POLISHER ABO/RH TYPE AND SCREEN Routine 9:00 AM ENGRAVINGS POLISHER Pre-procedure lab exam TYPE AND SCREEN, ADULT Routine 9:00 AM ENGRAVINGS POLISHER Pre-procedure lab exam HEMOGLOBIN A1C Routine 11/04/2024 9:00 AM ENGRAVINGS POLISHER LIPID REFLEX TO DIRECT LDL PANEL Routine 11/04/2024 9:00 AM ENGRAVINGS POLISHER Pre-procedure lab exam CBC WITH PLATELETS Routine 11/04/2024 9: 00 AM ENGRAVINGS POLISHER Pre-procedure lab exam BASIC METABOLIC PANEL Routine 11/04/2024 9:00 AM ENGRAVINGS POLISHER Pre-procedure lab exam LAB RESULT - HIM SCAN Routine 10/17/2024 2:27 PM ENGRAVINGS POLISHER from Last 3 Months Results * ICD DEVICE PROGRAMMING EVAL, DUAL LEAD ICD (12/10/2024 1:56 PM CDT) Date Time Interrogation Session [id number] [employer] Implantable Pulse Generator [employer] Spacelift [place] [employer] Implantable Pulse Generator Model D121 MOMENTUM EL ICD [employer] Implantable Pulse Generator Serial Number [id number] [employer] Type Interrogation Session In Clinic [employer] [facility] [employer] Implantable Pulse Generator Type Defibrillator [employer] Implantable Pulse Generator Implant Date 20220912 [employer] Implantable Lead [employer] Spacel[employer] Implantable Lead Model 4470 Fineline II Sterox EZ [employer] Implantable Lead Serial Number [id number] [employer] Implantable Lead Implant Date 20110217 [employer] Implantable Lead Polarity Type Bipolar Lead [employer] Implantable Lead Location Detail 1 APPENDAGE [employer] Implantable Lead Location Right Atrium [employer] Implantable Lead Connection Status Connected [employer] Implantable Lead [employer] Spacelift Guidant [employer] Implantable Lead Model 0158 [place] [employer] Implantable Lead Serial Number [id number] [employer] Implantable Lead Implant Date 20110217 [employer] [...] ms [employer] Battery Date Time of Measurements [employer] Battery Status Beginning of Service [employer] Battery Remaining Longevity 138 mo [employer] Battery Remaining Percentage 100 % [employer] Capacitor Charge Type Reformation [employer] Capacitor Last Charge Date Time [id number] [employer] Capacitor Charge Time 10.1 s [employer] Charlie Statistic Date Time Start [employer] Charlie Statistic Date Time End [employer] Charlie Statistic RA Percent Paced 1 % [employer] Charlie Statistic RV Percent Paced 1 % [employer] Atrial Tachy Statistic Date Time Start [employer] Atrial Tachy Statistic Date Time End [id number] [employer] Atrial Tachy Statistic AT/AF [place] Percent 1 % [employer] Therapy Statistic Recent Shocks Delivered 0 [employer] Therapy Statistic Recent Shocks Aborted 0 [employer] Therapy Statistic Recent ATP Delivered 1 [employer] Therapy Statistic Recent Date Time Start [id number] [employer] Therapy Statistic Recent Date Time End [id number] [employer] Therapy Statistic Total Shocks Delivered 0 [employer] Therapy Statistic Total Shocks Aborted 0 [employer] Therapy Statistic Total ATP Delivered 1 [employer] Therapy Statistic Total Date Time Start [id number] [employer] Therapy Statistic Total Date Time End [id number] [employer] Episode Statistic Recent Count 0 [employer] [...] [employer] Episode Statistic Recent Date Time Start [id number] [employer] Episode Statistic Recent Date Time End [id number] [employer] Episode Statistic Recent Date Time Start [id number] [employer] Episode Statistic Recent Date Time End [id number] [employer] Episode Statistic Recent Date Time Start [id number] [employer] Episode Statistic Recent Date Time End [id number] [facility] Episode Statistic Recent Date Time Start [id number] [facility] Episode Statistic Recent Date Time End [id number] [facility] Anatomical Region Laterality Modality Other 12/10/2024 2:05 PM CDT Narrative 12/10/2024 3:25 PM CDT Encounter type: Pt. seen in clinic for annual device evaluation and iterative programming. Followed by an appointment with Dr. Del Castillo for AF consult, per Dr. Chahal. Device: BOSCI, Momentum (D) ICD Pacing %/Programmed: AP- <1%, 4TH GRADE MATH TEACHER- <1%, DDDR 55/130 Lead(s): Stable Battery longevity: [...] CV CARDIAC SERVICES ORDERABLES F inal Result * Pathology Result (12/10/2024 12:00 AM CDT) 12/10/2024 Provider Outside LAB - COPATH SPECIAL DIAG ORDER NIVIA Final Result * COURTESY DEVICE CHECK (12/01/2024 7:03 AM ENGRAVINGS POLISHER) Only the most recent of2 resultswithin the time period is included. Date Time Interrogation Session [id number] [employer] Implantable Pulse Generator [employer] [place] [employer] Implantable Pulse Generator Model D121 MOMENTUM EL ICD [facility] Implantable Pulse Generator Serial Number [id number] [facility] Type Interrogation Session Remote Device Initiated [facility] Clinic Name [facility] Implantable Pulse Generator Type Defibrillator [facility] Implantable Pulse Generator Implant Date 20220912 [employer] Implantable Lead [employer] Implantable Lead Model 4470 Fineline II Sterox EZ [employer] Implantable Lead Serial Number [id number] [employer] Implantable Lead Implant Date 20110217 [employer] Implantable Lead Polarity Type Bipolar Lead [facility] Implantable Lead Location Detail 1 APPENDAGE [facility] Implantable Lead Location Right Atrium [employer] Implantable Lead Connection Status Connected [employer] Implantable Lead [employer] Guidant [employer] Implantable Lead Model 0158 [place] [employer] Implantable Lead Serial Number [id number] [employer] Implantable Lead Implant Date 20110217 [facility] [...] ms [facility] Battery Date Time of Measurements [id number] [facility] Battery Status Beginning of Service [facility] Battery Remaining Longevity 126 mo [facility] Battery Remaining Percentage 100 % [facility] Capacitor Charge Type Reformation [facility] Capacitor Last Charge Date Time [id number] [facility] Capacitor Charge Time 10.1 s [facility] Charlie Statistic Date Time Start [id number] [facility] Charlie Statistic Date Time End [id number] [facility] Charlie Statistic RA Percent Paced 1 % [facility] Charlie Statistic RV Percent Paced 1 % [facility] Atrial Tachy Statistic Date Time Start [id number] [facility] Atrial Tachy Statistic Date Time End [id number] [facility] Atrial Tachy Statistic AT/AF Latonia Percent 1 % [facility] Therapy Statistic Recent Shocks Delivered 0 [facility] Therapy Statistic Recent Shocks Aborted 0 [facility] Therapy Statistic Recent ATP Delivered 1 [facility] Therapy Statistic Recent Date Time Start [id number] [facility] Therapy Statistic Recent Date Time End [id number] [facility] Therapy Statistic Total Shocks Delivered 0 [facility] Therapy Statistic Total Shocks Aborted 0 [facility] Therapy Statistic Total ATP Delivered 1 [facility] Therapy Statistic Total Date Time Start [id number] [facility] Therapy Statistic Total Date Time End [id number] [facility] Episode Statistic Recent Count 1 [facility] [...] [facility] Episode Statistic Recent Date Time Start [id number] [facility] Episode Statistic Recent Date Time End [id number] [facility] Episode Statistic Recent Date Time Start [id number] [facility] Episode Statistic Recent Date Time End [id number] [facility] Episode Statistic Recent Date Time Start [id number] [facility] Episode Statistic Recent Date Time End [id number] [facility] Episode Statistic Recent Date Time Start [id number] [facility] Episode Statistic Recent Date Time End [id number] [facility] Episode Statistic Recent Date Time Start [id number] [facility] Episode Statistic Recent Date Time End [id number] [facility] Episode Identifier [id number] [facility] Episode Type Category Periodic EGM [facility] Episode Date Time [id number] [facility] Episode Identifier [id number] [facility] Episode Type Category Other [facility] Episode Date Time [id number] [facility] Episode Identifier [id number] [facility] Episode Type Category Other [facility] Episode Date Time [id number] [facility] Episode Identifier [id number] [facility] Episode Type Category AT/AF [facility] Episode Date Time [id number] [facility] Episode Duration 33,427 s [facility] Episode Identifier [id number] [facility] Episode Type Category Periodic EGM [facility] Episode Date Time [id number] [facility] Episode Identifier [id number] [facility] Episode Type Category Other [facility] Episode Date Time [id number] [facility] Episode Identifier [id number] [facility] Episode Type Category Other [facility] Episode Date Time [id number] [facility] Episode Identifier [id number] [facility] Episode Type Category Periodic EGM [facility] Episode Date Time [id number] [facility] Episode Identifier [id number] [facility] Episode Type Category Other [facility] Episode Date Time [id number] [facility] Episode Identifier [id number] [facility] Episode Type Category Other [facility] Episode Date Time [id number] [facility] Anatomical Region Laterality Modality Other 11/27/2024 4:41 AM ENGRAVINGS POLISHER Narrative 12/01/2024 5:20 PM ENGRAVINGS POLISHER Encounter Type: Alert 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 Courtesy check. Data was compiled on 11/27/24 for review and interpretation on 12/01/24. Device: BSCI Momentum. Pacing %/Programmed: AP 1%, 4TH GRADE MATH TEACHER 1% at DDDR 55/130 ppm. Lead(s): stable. [...] Bee, Device Specialist ADD: Transmission reviewed, see [facility] for details. Megan Rawls RN Device follow [...] CV CARDIAC SERVICES ORDERABLES F inal Result * (ABNORMAL) CBC with platelets and differential (11/25/2024 1:43 PM ENGRAVINGS POLISHER) Only the most recent of3 resultswithin the time period is included. WBC Count 19.7(H) 4.0 - 11.0 10e3/uL 11/25/2024 1:55 PM [facility] RBC Count 3.59(L) 4.40 - 5.90 10e6/uL 11/25/2024 1:55 PM [facility] Hemoglobin 11.2(L) 13.3 - 17.7 g/dL 11/25/2024 1:55 PM [facility] Hematocrit 32.8(L) 40.0 - 53.0 % 11/25/2024 1:55 PM [facility] MCV 91 78 - 100 fL 11/25/2024 1:55 PM [facility] MCH 31.2 26.5 - 33.0 pg 11/25/2024 1:55 PM [facility] MCHC 34.1 31.5 - 36.5 g/dL 11/25/2024 1:55 PM [facility] RDW 13.0 10.0 - 15.0 % 11/25/2024 1:55 PM [facility] Platelet Count 273 150 - 450 10e3/uL 11/25/2024 1:55 PM [facility] % Neutrophils 88 % 11/25/2024 1:55 PM [facility] % Lymphocytes 3 % 11/25/2024 1:55 PM [facility] % Monocytes 8 % 11/25/2024 1:55 PM [facility] % Eosinophils 0 % 11/25/2024 1:55 PM [facility] % Basophils 0 % 11/25/2024 1:55 PM [facility] % Immature Granulocytes 1 % 11/25/2024 1:55 PM [facility] NRBCs per 100 WBC 0 <1 /100 025 1:55 PM [facility] Absolute Neutrophils 17.4(H) 1.6 - 8.3 10e3/uL 11/25/2024 1:55 PM [facility] Absolute Lymphocytes 0.6(L) 0.8 - 5.3 10e3/uL 11/25/2024 1:55 PM [facility] Absolute Monocytes 1.5(H) 0.0 - 1.3 10e3/uL 11/25/2024 1:55 PM [facility] Absolute Eosinophils 0.1 0.0 - 0.7 10e3/uL 11/25/2024 1:55 PM [facility] Absolute Basophils 0.0 0.0 - 0.2 10e3/uL 11/25/2024 1:55 PM [facility] Absolute Immature Granulocytes 0.1 <=0.4 10e3/uL 11/25/2024 1:55 PM [facility] Absolute NRBCs 0.0 10e3/uL 11/25/2024 1:55 PM [facility] Blood STRUCTURE OF LEFT HAND / Unknown Venipuncture / Unknown 11/25/2024 1:43 PM ENGRAVINGS POLISHER 11/25/2024 1:50 PM ENGRAVINGS POLISHER us Catalina Wright PA-C LAB - BLOOD ORDERABLES Sapphire burrell Result [facility] [address] [place] [address], [facility] * (ABNORMAL) Basic metabolic panel (11/25/2024 1:43 PM ENGRAVINGS POLISHER) Only the most recent of4 resultswithin the time period is included. Sodium 130(L) 135 - 145 mmol/L 11/25/2024 2:25 PM [facility] Potassium 5.1 3.4 - 5.3 mmol/L 11/25/2024 2:25 PM [facility] Chloride 98 98 - 107 mmol/L 11/25/2024 2:25 PM [facility] Carbon Dioxide (CO2) 21(L) 22 - 29 mmol/L 11/25/2024 2:25 PM [facility] Anion Gap 11 7 - 15 mmol/L 11/25/2024 2:25 PM [facility] Urea Nitrogen 43.8(H) 8.0 - 23.0 mg/dL 11/25/2024 2:25 PM [facility] Creatinine 2.31(H) 0.67 - 1.17 mg/dL 11/25/2024 2:25 PM [facility] GFR Estimate 28(L) >60 mL/min/1.7 3m2 11/25/2024 2:25 PM [facility] Comment:eGFR calculated us2020 CKD-EPI equation. Calcium 8.7(L) 8.8 - 10.4 mg/dL 11/25/2024 2:25 PM [facility] Glucose 152(H) 70 - 99 mg/dL 11/25/2024 2:25 PM [facility] Blood STRUCTURE OF LEFT HAND / Unknown Venipuncture / Unknown 11/25/2024 1:43 PM ENGRAVINGS POLISHER 11/25/2024 1:50 PM ENGRAVINGS POLISHER Catalina Wright PA-C LAB - BLOOD ORDERABLES Sapphire burrell Result [facility] [address] [place] [address], [facility] * (ABNORMAL) UA with Microscopic reflex to Culture (11/24/2024 9:59 PM ENGRAVINGS POLISHER) Only the most recent of2 resultswithin the time period is included. Color Urine Light Edmunds(A) Colorless, Straw, Light Yellow, Yellow 11/24/2024 10:15 PM [facility] Appearance Urine Turbid(A) Clear 11/24/19 10:15 PM [facility] Glucose Urine Negative Negative mg/dL 11/24/2024 10:15 PM [facility] Bilirubin Urine Negative Negative 10:15 PM [facility] Ketones Urine Negative Negative mg/dL 11/24/2024 10:15 PM [facility] Specific [place] Urine 1.016 1.001 - 1.030 11/24/2024 10:15 PM [facility] Blood Urine >1.0 mg/dL(A) Negative 11/24/2024 10:15 PM [facility] pH Urine 6.0 5.0 - 7.0 11/24/2024 10:[address] [facility] Protein Albumin Urine 300(A) Negative mg/dL 11/24/2024 10:[address] [facility] Urobilinogen Urine <2.0 <2.0 mg/dL 11/24/2024 10:[address] [facility] Nitrite Urine Negative Negative 11/24/2024 10:[address] [facility] Leukocyte Esterase Urine 75 Adriel/uL(A) Negative 11/24/2024 10:15 PM [facility] WBC Clumps Urine Present(A) None Seen /HPF 11/24/2024 10:[address] [facility] RBC Urine >182(H) <=2 /HPF 11/24/2024 10:[address] [facility] WBC Urine >182(H) <=5 /HPF 11/24/2024 10:[address] [facility] Urine URINE SPECIMEN FROM URINARY CONDUIT / Unknown Non-blood Collection / Unknown 11/24/2024 9:59 PM ENGRAVINGS POLISHER 11/24/2024 10:02 PM ENGRAVINGS POLISHER Narrative [facility] - 11/24/2024 10:15 PM ENGRAVINGS POLISHER Urine Culture ordered based on laboratory criteria María Shen DO LAB - URINE ORDERABLES Final Result [facility] [address] [place] [address], [facility] * (ABNORMAL) Urine Culture (11/24/2024 9:59 PM ENGRAVINGS POLISHER) Culture <10,000 CFU/mL Enterococcus faecalis(A) ITZ 11/28/2024 6:46 AM ENGRAVINGS POLISHER [facility] Culture <10,000 CFU/mL Staphylococcus epidermidis(A) 11/28/2024 6:46 AM ENGRAVINGS POLISHER [facility] Urine URINE SPECIMEN FROM URINARY CONDUIT / Unknown Non-blood Collection / Unknown 11/24/2024 9:59 PM ENGRAVINGS POLISHER 11/24/2024 10:14 PM ENGRAVINGS POLISHER Narrative Organism Antibiotic Method Susceptibility Enterococcus faecalis Ampicillin ITZ <=2 ug/mL: Susceptible Enterococcus faecalis Vancomycin ITZ 1 ug/mL: Susceptible Enterococcus faecalis Nitrofurantoin ITZ <=16 ug/mL: Susceptible Staphylococcus epidermidis Oxacillin ITZ <=0.25 ug/mL: Susceptible Comment:Oxacillin nassar sceptible isolates are susceptible to cephalosporins (example: cefazolin and cephalexin) and beta lactam combination agents. Oxacillin resistant isolates are resistant to these agents. Staphylococcus epidermidis Gentamicin ITZ <=0.5 ug/mL: Susceptible Staphylococcus epidermidis Ciprofloxacin ITZ <=0.5 ug/mL: Susceptible Staphylococcus epidermidis Levofloxacin ITZ 0.25 ug/mL: Susceptible Staphylococcus epidermidis Vancomycin ITZ 2 ug/mL: Susceptible Staphylococcus epidermidis Daptomycin ITZ 0.5 ug/mL: Susceptible Staphylococcus epidermidis Tetracycline ITZ <=1 ug/mL: Susceptible Staphylococcus epidermidis Doxycycline TIZ <=0.5 ug/mL: Susceptible Staphylococcus epidermidis Nitrofurantoin ITZ <=16 ug/mL: Susceptible Staphylococcus epidermidis Trimethoprim/ Sulfamethoxaz ole ITZ Susceptible Comment:Antibiotics listed a s No Interpretation have no regulatory guidelines for susceptibility/resistance available. us María Shen DO LAB - MICRO GENERAL ORDERABLE S Final Result [facility] Inf. Diseases Diag. Lab [address] [place] [address] * (ABNORMAL) Glucose by meter (11/11/2024 11:51 AM ENGRAVINGS POLISHER) Only the most recent of26 resultswithin the time period is included. GLUCOSE BY METER POCT 144(H) 70 - 99 mg/dL 11/11/2024 11:59 AM ENGRAVINGS POLISHER [facility] POCT RESULTS Blood, Capillary BLOOD SPECIMEN / Unknown 11/11/2024 11:51 AM ENGRAVINGS POLISHER 11/11/2024 11:59 AM ENGRAVINGS POLISHER Bry Brothers DO LAB - BEAKER POCT Final Re sult [facility] POCT RESULTS [address] [place] [address] * (ABNORMAL) Renal panel (11/11/2024 5:02 AM ENGRAVINGS POLISHER) Only the most recent of4 resultswithin the time period is included. Sodium 137 135 - 145 mmol/L 11/11/2024 6:02 AM [facility] Potassium 4.6 3.4 - 5.3 mmol/L 11/11/2024 6:02 AM [facility] Chloride 101 98 - 107 mmol/L 11/11/2024 6:02 AM [facility] Carbon Dioxide (CO2) 21(L) 22 - 29 mmol/L 11/11/2024 6:02 AM [facility] Anion Gap 15 7 - 15 mmol/L 11/11/2024 6:02 AM [facility] Glucose 119(H) 70 - 99 mg/dL 11/11/2024 6:02 AM [facility] Urea Nitrogen 69.1(H) 8.0 - 23.0 mg/dL 11/11/2024 6:02 AM [facility] Creatinine 2.91(H) 0.67 - 1.17 mg/dL 11/11/2024 6:02 AM [facility] GFR Estimate 21(L) >60 mL/min/1.7 3m2 11/11/2024 6:02 AM [facility] Comment:eGFR calculated 2020 CKD-EPI equation. Calcium 9.4 8.8 - 10.4 mg/dL 11/11/2024 6:02 AM [facility] Albumin 4.1 3.5 - 5.2 g/dL 11/11/2024 6:02 AM [facility] Phosphorus 4.9(H) 2.5 - 4.5 mg/dL 11/11/2024 6:02 AM [facility] Blood STRUCTURE OF LEFT UPPER LIMB / Unknown Venipuncture / Unknown 11/11/2024 5:02 AM ENGRAVINGS POLISHER 11/11/2024 5:28 AM [facility] us Bry Brothers DO LAB - BLOOD ORDERABLES Fin al Result [facility] [address] [place] [address], [facility] * (ABNORMAL) UA Macroscopic with reflex to Microscopic and Culture (11/10/2024 8:31 PM ENGRAVINGS POLISHER) Only the most recent of2 resultswithin the time period is included. Color Urine Yellow Colorless, Straw, Light Yellow, Yellow 11/10/2024 9:19 PM ENGRAVINGS POLISHER [facility] Appearance Urine Turbid(A) Clear 11/10/19 9:19 PM ENGRAVINGS POLISHER [facility] Glucose Urine Negative Negative mg/dL 11/10/2024 9:19 PM ENGRAVINGS POLISHER [facility] Bilirubin Urine Negative Negative 9:19 PM ENGRAVINGS POLISHER [facility] Ketones Urine Negative Negative mg/dL 11/10/2024 9:19 PM ENGRAVINGS POLISHER [facility] Specific [place] Urine 1.018 1.001 - 1.030 11/10/2024 9:19 PM ENGRAVINGS POLISHER [facility] Blood Urine >1.0 mg/dL(A) Negative 11/10/2024 9:19 PM ENGRAVINGS POLISHER [facility] pH Urine 5.5 5.0 - 7.0 11/10/2024 9:19 PM ENGRAVINGS POLISHER [facility] Protein Albumin Urine 100(A) Negative mg/dL 11/10/2024 9:19 PM ENGRAVINGS POLISHER [facility] Urobilinogen Urine <2.0 <2.0 mg/dL 11/10/2024 9:19 PM ENGRAVINGS POLISHER [facility] Nitrite Urine Negative Negative 11/10/2024 9:19 PM ENGRAVINGS POLISHER [facility] Leukocyte Esterase Urine Negative Negative 11/10/2024 9:19 PM ENGRAVINGS POLISHER [facility] Bacteria Urine Few(A) None Seen /HPF ITZ 11/10/2024 9:19 PM ENGRAVINGS POLISHER [facility] RBC Urine >182(H) <=2 /HPF 11/10/2024 9:19 PM ENGRAVINGS POLISHER [facility] WBC Urine 10(H) <=5 /HPF 11/10/2024 9:19 PM ENGRAVINGS POLISHER [facility] Squamous Epithelials Urine <1 <=1 /HPF 11/10/2024 9:19 PM ENGRAVINGS POLISHER [facility] Urine URINE SPECIMEN OBTAINED BY CLEAN CATCH PROCEDURE / Unknown Non-blood Collection / Unknown 11/10/2024 8:31 PM ENGRAVINGS POLISHER 11/10/2024 8:49 PM ENGRAVINGS POLISHER Narrative [facility] - 11/10/2024 9:19 PM ENGRAVINGS POLISHER Urine Culture not indicated Bry Brothers DO LAB - URINE ORDERABLES Fin al Result [facility] [address] * Extra Purple Top EDTA (LAB USE ONLY) (11/10/2024 5:15 AM ENGRAVINGS POLISHER) Only the most recent of2 resultswithin the time period is included. Hold Specimen JIC 11/10/2024 6:[address] [facility] Blood STRUCTURE OF RIGHT UPPER LIMB / Unknown Venipuncture / Unknown 11/10/2024 5:15 AM ENGRAVINGS POLISHER 11/10/2024 5:36 AM ENGRAVINGS POLISHER Bry Brothers LAB - BLOOD ORDERABLES Fin al Result Performing Organization Address [facility] de Phone Number [facility] [address] * Sodium random urine (11/09/2024 5:15 PM ENGRAVINGS POLISHER) Sodium Urine mmol/L 55 mmol/L 11/09/2024 5:[address] [facility] Comment:The reference ranges have not been established in urine sodium. The results should be integrated into the clinical context for interpretation. Urine MID-STREAM URINE SPECIMEN / Unknown Non-blood Collection / Unknown 11/09/2024 5:15 PM ENGRAVINGS POLISHER 11/09/2024 5:19 PM ENGRAVINGS POLISHER Marilyn Savage MD LAB - URINE ORDERABLES Fin al Result Performing Organization Address [facility] de Phone Number [facility] [address] * US Renal Complete Non-Vascular (11/09/2024 3:50 PM ENGRAVINGS POLISHER) Anatomical Region Laterality Modality Abdomen/Pelvis Ultrasound 11/09/2024 3:50 PM ENGRAVINGS POLISHER Impressions 11/09/2024 3:56 PM ENGRAVINGS POLISHER IMPRESSION: 1. No hydronephrosis. 2. The prostate gland is enlarged. The bladder is distended. Narrative 11/09/2024 3:56 PM ENGRAVINGS POLISHER EXAM: US RENAL COMPLETE NON-VASCULAR LOCATION: [facility] DATE: 11/09/2024 INDICATION: ALEX COMPARISON: None. TECHNIQUE: Routine Bilateral Renal and Bladder Ultrasound. FINDINGS: RIGHT KIDNEY: 9.4 x 5.7 x 5.6 cm. Normal without hydronephrosis or masses. Small simple cysts are present. Normal echotexture. LEFT KIDNEY: 13.0 x 5.1 x 5.6 cm. Normal without hydronephrosis or masses. Small simple cysts are present. Largest BLADDER: Distended. The prostate gland is enlarged. Procedure Note Jamie Arce MD - 11/09/2024 EXAM: US RENAL COMPLETE NON-VASCULAR LOCATION: [facility] DATE: 11/09/2024 INDICATION: ALEX COMPARISON: None. TECHNIQUE: Routine Bilateral Renal and Bladder Ultrasound. FINDINGS: RIGHT KIDNEY: 9.4 x 5.7 x 5.6 cm. Normal without hydronephrosis or masses.Small simple cysts are present. Normal echotexture. LEFT KIDNEY: 13.0 x 5.1 x 5.6 cm. Normal without hydronephrosis or masses.Small simple cysts are present. Largest BLADDER: Distended. The prostate gland is enlarged. IMPRESSION: 1. No hydronephrosis. 2. The prostate gland is enlarged. The bladder is distended. Marilyn Savage MD [facility] US ORDERABLES Final Re sult * Folate (11/09/2024 11:34 AM ENGRAVINGS POLISHER) Folic Acid 17.1 4.6 - 34.8 ng/mL 11/09/2024 2:32 PM ENGRAVINGS POLISHER [facility] Blood STRUCTURE OF LEFT UPPER LIMB / Unknown Venipuncture / Unknown 11/09/2024 11:34 AM ENGRAVINGS POLISHER 11/09/2024 11:39 AM ENGRAVINGS POLISHER Bry Brothers DO LAB - BLOOD ORDERABLES Fin al Result [facility] [place] [facility] [address] [facility] [place] [address] * (ABNORMAL) Magnesium (11/09/2024 4:43 AM ENGRAVINGS POLISHER) Magnesium 2.4(H) 1.7 - 2.3 mg/dL 11/09/2024 5:[address] [facility] Blood STRUCTURE OF LEFT UPPER LIMB / Unknown Venipuncture / Unknown 11/09/2024 4:43 AM ENGRAVINGS POLISHER 11/09/2024 5:26 AM [facility]INGS POLISHER [facility] - BLOOD ORDERABLES Fin al Result Performing Organization Address City/[facility] Co de Phone Number [facility] [address] * (ABNORMAL) Hemoglobin (11/09/2024 4:43 AM ENGRAVINGS POLISHER) Hemoglobin 12.6(L) 13.3 - 17.7 g/dL 11/09/2024 5:[address] [facility] Blood STRUCTURE OF LEFT UPPER LIMB / Unknown Venipuncture / Unknown 11/09/2024 4:43 AM ENGRAVINGS POLISHER 11/09/2024 5:25 AM [facility]RAVINGS POLISHER [facility] - BLOOD ORDERABLES Fin al Result Performing Organization Address [facility] Co de Phone Number [facility] [address] * CK total (11/09/2024 4:43 AM ENGRAVINGS POLISHER) CK 127 39 - 308 U/L 11/09/2024 4:[address] [facility] Blood STRUCTURE OF LEFT UPPER LIMB / Unknown Venipuncture / Unknown 11/09/2024 4:43 AM ENGRAVINGS POLISHER 11/09/2024 5:26 AM [facility]RAVINGS POLISHER [facility] - BLOOD ORDERABLES Fin al Result Performing Organization Address City/[facility] Co de Phone Number [facility] [address] [place] [address], [facility] * Vitamin B12 (11/09/2024 4:43 AM ENGRAVINGS POLISHER) Vitamin B12 461 232 - 1,245 pg/mL 11/09/2024 6:57 PM ENGRAVINGS POLISHER [facility]ORY Blood STRUCTURE OF LEFT UPPER LIMB / Unknown Venipuncture / Unknown 11/09/2024 4:43 AM ENGRAVINGS POLISHER 11/09/2024 5:26 AM ENGRAVINGS POLISHER Bry Ramos Zev SCHAFER LAB - BLOOD ORDERABLES Fin al Result [facility] [place] [facility] [address] [place] [address] * Potassium (11/06/2024 3:27 PM ENGRAVINGS POLISHER) Only the most recent of3 resultswithin the time period is included. Potassium 4.7 3.4 - 5.3 mmol/L 11/06/2024 3:[address] [facility] Blood STRUCTURE OF RIGHT UPPER LIMB / Unknown Venipuncture / Unknown 11/06/2024 3:27 PM ENGRAVINGS POLISHER 11/06/2024 3:30 PM ENGRAVINGS POLISHER Marilyn Savage MD LAB - BLOOD ORDERABLES Fin al Result [facility] [address] * TSH with free T4 reflex (11/06/2024 4:27 AM ENGRAVINGS POLISHER) TSH 3.08 0.30 - 4.20 uIU/mL 11/06/2024 1:[address] [facility] Blood TOPOGRAPHY UNKNOWN / Unknown Venipuncture / Unknown 11/06/2024 4:27 AM ENGRAVINGS POLISHER 11/06/2024 4:31 AM ENGRAVINGS POLISHER Bry Brothers DO LAB - BLOOD ORDERABLES Fin al Result [facility] [address] [place] [address], [facility] * (ABNORMAL) Comprehensive metabolic panel (11/06/2024 4:27 AM [facility]) Sodium 138 135 - 145 mmol/L 11/06/2024 4:49 AM [facility] Potassium 4.9 3.4 - 5.3 mmol/L 11/06/2024 4:49 AM [facility] Carbon Dioxide (CO2) 22 22 - 29 mmol/L 11/06/2024 4:49 AM [facility] Anion Gap 10 7 - 15 mmol/L 11/06/2024 4:49 AM [facility] Urea Nitrogen 48.4(H) 8.0 - 23.0 mg/dL 11/06/2024 4:49 AM [facility] Creatinine 2.69(H) 0.67 - 1.17 mg/dL 11/06/2024 4:49 AM [facility] GFR Estimate 23(L) >60 mL/min/1.7 3m2 11/06/2024 4:49 AM [facility] Comment:eGFR calculated us2020 CKD-EPI equation. Calcium 9.4 8.8 - 10.4 mg/dL 11/06/2024 4:49 AM [facility] Chloride 106 98 - 107 mmol/L 11/06/2024 4:49 AM [facility] Glucose 108(H) 70 - 99 mg/dL 11/06/2024 4:49 AM [facility] Alkaline Phosphatase 126 40 - 150 U/L 11/06/2024 4:49 AM [facility] AST 23 0 - 45 U/L 11/06/2024 4:49 AM [facility] ALT 20 0 - 70 U/L 11/06/2024 4:49 AM [facility] Protein Total 6.5 6.4 - 8.3 g/dL 11/06/2024 4:49 AM [facility] Albumin 4.0 3.5 - 5.2 g/dL 11/06/2024 4:49 AM [facility] Bilirubin Total 0.5 <=1.2 mg/dL 11/06/2024 4:49 AM [facility] Blood TOPOGRAPHY UNKNOWN / Unknown Venipuncture / Unknown 11/06/2024 4:27 AM ENGRAVINGS POLISHER 11/06/2024 4:31 AM ENGRAVINGS POLISHER Bry Brothers LAB - BLOOD ORDERABLES Fin al Result [facility] [address] * MRSA Culture (11/05/2024 9:02 PM ENGRAVINGS POLISHER) Culture No MRSA isolated ITZ 11/08/2024 9:23 PM ENGRAVINGS POLISHER [facility] Swab NASAL STRUCTURE / Unknown Non-blood Collection / Unknown 11/05/2024 9:02 PM ENGRAVINGS POLISHER 11/05/2024 9:21 PM ENGRAVINGS POLISHER Keshav Palmer MD LAB - MICRO GENERAL ORDERABLES Final Result Performing Organization Address City/[facility]/ZIP Co de Phone Number [facility] Inf. Diseases Diag. Lab [address] [facility], [address] [place] [address] * (ABNORMAL) Nt probnp inpatient (11/05/2024 3:37 PM ENGRAVINGS POLISHER) N terminal Pro BNP Inpatient 3,284(H) 0 - 1,800 pg/mL 11/05/2024 4:19 PM ENGRAVINGS POLISHER [facility] Comment: Reference range shown and results flagged as abnormal are suggested inpatient cut points for confirming diagnosis if CHF in an acute setting. Establishing a baseline value for each individual patient is useful for follow-up. An inpatient or emergency department NT-proPBNP <300 pg/mL effectively rules out acute CHF, with 99% negative predictive value. The outpatient non-acute reference range for ruling out CHF is: 0-125 pg/mL (age 18 to less than 75) 0-450 pg/mL (age 75 yrs and older) Blood STRUCTURE OF RIGHT UPPER LIMB / Unknown Venipuncture / Unknown 11/05/2024 3:37 PM ENGRAVINGS POLISHER 11/05/2024 3:47 PM ENGRAVINGS POLISHER Anderson Otero MD LAB - BLOOD ORDERABLES Fi nal Result Performing Organization Address [facility] de Phone Number [facility] [address] * (ABNORMAL) Protein random urine (11/05/2024 3:19 PM ENGRAVINGS POLISHER) Total Protein Urine mg/dL 44.5 mg/dL 11/05/2024 3:[address] [facility] Comment:The reference ranges have not been established in urine protein. The results should be integrated into the clinical context for interpretation. Total Protein Urine mg/mg Creat 0.96(H) 0.00 - 0.20 mg/mg Cr 11/05/2024 3:[address] [facility] Creatinine Urine mg/dL 46.4 mg/dL 11/05/2024 3:[address] [facility] Comment:The reference ranges have not been established in urine creatinine. The results should be integrated into the clinical context for interpretation. Urine MID-STREAM URINE SPECIMEN / Unknown Non-blood Collection / Unknown 11/05/2024 3:19 PM ENGRAVINGS POLISHER 11/05/2024 3:23 PM ENGRAVINGS POLISHER Bry Brothers LAB - URINE ORDERABLES Fin al Result Performing Organization Address [facility] de Phone Number [facility] [address] * CV RIGHT HEART CATH MEASUREMENTS RECORDED (11/05/2024 9:56 AM ENGRAVINGS POLISHER) Anatomical Region Laterality Modality Other Narrative 11/05/2024 10:32 AM ENGRAVINGS POLISHER Cardiac Catheterization Report Name: David Coleman : 1945 Procedure date: November 05, 2024 Procedure: Right heart catheterization Pre-op diagnosis: HFpEF Post-op diagnosis: Same Proceduralist: Jarrett Porras MD Access: 7 Wolof, right internal jugular Catheters: Argyle Hemostasis: Manual Meds: Fentanyl 25 mcg Midazolam 0.5 mg 60 mg IV Lasix Hemodynamics: RA: 14 mmHg RV: 58/17 mmHg PA: 49/25/36 mmHg PCWP: 24 mmHg CO 5.88 L/min (Jordin) CI: 2.54 L/min/m2 Saturations: SVC: 63% RA: 61% RV: 58% PA: 62% Conclusions: 1. Elevated left and right heart filling pressures. 2. Normal systemic flow estimation by Jordin. 3. No shunt. Recommendations: 1. Given severe symptomatic heart failure and acute on chronic renal failure I recommend admission for IV diuresis. Patient and family in agreement with this plan. Please do not hesitate to contact me if you have any questions or concerns. I was present for the procedure in its entirety. Moderate conscious sedation at level 3-4 with fentanyl and midazolam was administered, and I spent continuous face to face time with the patient which encompassed the duration of the procedure. Please refer to the sedation flow sheet for additional information. I have reviewed and agree with the documentation provided in the RN sedation flow sheet as outlined. I concluded sedation and recovery was monitored by the trained independent observer. I attest that I have ordered all medications administered, equipment used, and tests performed during the procedure. Study Details Ischemic cardiomyopathy Perioperative restratification Comments/Patient Narrative Mr. Coleman is a 79-year-old male with a history of HFpEF who presents for right heart catheterization. Cath Procedure details No Complications - Patient tolerated procedure well The attending certified midwife was present and supervised all critical aspects the procedure. us Nora Chahal MD CV CARDIAC CATH ORDERABLES Fin al Result * (ABNORMAL) Blood gas venous POCT (11/05/2024 9:42 AM ENGRAVINGS POLISHER) Only the most recent of4 resultswithin the time period is included. pH Venous POCT 7.33 7.32 - 7.43 11/05/2024 9:50 AM [facility] POCT RESULTS pCO2 Venous POCT 37(L) 40 - 50 mm Hg 11/05/2024 9:50 AM [facility] POCT RESULTS pO2 Venous POCT 34 25 - 47 mm Hg 11/05/2024 9:50 AM [facility] POCT RESULTS Bicarbonate Venous POCT 19(L) 21 - 28 mmol/L 11/05/2024 9:50 AM [facility] POCT RESULTS Base Excess/Deficit (+/-) POCT -6.2(L) -3.0 - 3.0 mmol/L 11/05/2024 9:50 AM ENGRAVINGS POLISHER [facility] POCT RESULTS O2 Sat, Venous POCT 62(L) 70 - 75 % 11/05/2024 9:50 AM ENGRAVINGS POLISHER [facility] POCT RESULTS Oxyhemoglobin Venous POCT 61(L) 70 - 75 % 11/05/2024 9:50 AM ENGRAVINGS POLISHER [facility] POCT RESULTS Blood, venous BLOOD SPECIMEN / Unknown 11/05/2024 9:42 AM ENGRAVINGS POLISHER 11/05/2024 9:50 AM ENGRAVINGS POLISHER Narrative [facility] POCT RESULTS - 11/05/2024 9:50 AM ENGRAVINGS POLISHER In healthy individuals, oxyhemoglobin (O2Hb) and oxygen saturation (SO2) are approximately equal. In the presence of dyshemoglobins, oxyhemoglobin can be considerably lower than oxygen saturation. us Jarrett Porras MD LAB - INTERFACED POCT Final Resu lt [facility] POCT RESULTS [facility] [place] [address] * ECG 12-Lead with MUSE ??? [facility] (11/05/2024 7:27 AM ENGRAVINGS POLISHER) Systolic Blood Pressure mmHg RADIOLOGY RESULTS Diastolic Blood Pressure mmHg RADIOLOGY RESULTS Ventricular Rate 79 BPM RAD IOLOGY RESULTS Atrial Rate 79 BPM RADIOLOG Y RESULTS NV Interval 172 ms RADIOLOG Y RESULTS QRS Duration 104 ms RADIOLO GY RESULTS QT 396 ms RADIOLOGY RESULTS QTc 454 ms RADIOLOGY RESULTS P [place] 46 degrees RADIOLOGY RESULTS R AXIS 12 degrees RADIOLOGY RESULTS T [place] -54 degrees RADIOLOGY RESULTS Interpretation ECG Sinus rhythm Septal infarct , age undetermined Abnormal ECG When compared with ECG of 04-Mar-2017 07:43, Septal infarct is now Present Non-specific change in ST segment in Lateral leads Nonspecific T wave abnormality, worse in Inferior leads Nonspecific T wave abnormality now evident in Lateral leads Confirmed by JARRETT PORRAS MD LOC:JN ([id number]) on 11/05/2024 9:08:23 AM RADIOLOGY RESULTS 11/05/2024 7:27 AM ENGRAVINGS POLISHER 11/05/2024 9:08 AM ENGRAVINGS POLISHER us Nora Chahal MD ECG ORDERABLES Edited Result - Final RADIOLOGY RESULTS * EKG Cardiac - HIM Scan (11/05/2024 12:00 AM ENGRAVINGS POLISHER) 11/05/2024 us Provider Outside ECG ORDERABLES Final Result * Adult Type and Screen (11/04/2024 9:00 AM ENGRAVINGS POLISHER) ABO/RH(D) O NEG 11/03/2024 6:00 PM [facility] Antibody Screen Negative Negative 11/03/2024 6:00 PM [facility] SPECIMEN EXPIRATION DATE [id number] 11/03/2024 6:00 PM [facility] Blood STRUCTURE OF LEFT UPPER LIMB / Unknown Venipuncture / Unknown 11/04/2024 9:00 AM ENGRAVINGS POLISHER 11/04/2024 10:20 AM [facility] Nora Chahal MD LAB - BLOOD BANK TEST ORDER Fi nal Result Performing Organization Address City/[facility]/ZIP Co de Phone Number [facility] [address] * (ABNORMAL) Lipid panel reflex to direct LDL Fasting (11/04/2024 9:00 AM ENGRAVINGS POLISHER) Cholesterol 138 <200 mg/dL 11/04/2024 10:44 AM [facility] Triglycerides 174(H) <150 mg/dL 11/04/2024 10:44 AM [facility] Direct Measure HDL 30(L) >=40 mg/dL 11/04/2024 10:44 AM [facility] LDL Cholesterol Calculated 73 <100 mg/dL 11/04/2024 10:44 AM [facility] Non HDL Cholesterol 108 <130 mg/dL 11/04/2024 10:44 AM [facility] Patient Fasting > 8hrs? Unknown 11/04/2024 10:44 AM [facility] Blood STRUCTURE OF LEFT UPPER LIMB / Unknown Venipuncture / Unknown 11/04/2024 9:00 AM ENGRAVINGS POLISHER 11/04/2024 10:20 AM ENGRAVINGS POLISHER Narrative [facility] - 11/04/2024 10:44 AM ENGRAVINGS POLISHER Cholesterol Desirable: < 200 mg/dL Borderline High: 200 - 239 mg/dL High: >= 240 mg/dL Triglycerides Normal: < 150 mg/dL Borderline High: 150 - 199 mg/dL High: 200-499 mg/dL Very High: >= 500 mg/dL Direct Measure HDL Female: >= 50 mg/dL Male: >= 40 mg/dL LDL Cholesterol Desirable: < 100 mg/dL Above Desirable: 100 - 129 mg/dL Borderline High: 130 - 159 mg/dL High: 160 - 189 mg/dL Very High: >= 190 mg/dL Non HDL Cholesterol Desirable: < 130 mg/dL Above Desirable: 130 - 159 mg/dL Borderline High: 160 - 189 mg/dL High: 190 - 219 mg/dL Very High: >= 220 mg/dL Nora Chahal MD LAB - BLOOD ORDERABLES Final R esult Performing Organization Address City/[facility] Co de Phone Number [facility] [address] [place] [address], [facility] * (ABNORMAL) Hemoglobin A1c (11/04/2024 9:00 AM [facility]) [facility] Estimated Average Glucose 143(H) <117 mg/dL 11/05/2024 12:25 PM [facility] Hemoglobin A1C 6.6(H) <5.7 % 11/05/2024 12:25 PM [facility] Comment: Normal <5.7% Prediabetes 5.7-6.4% Diabetes 6.5% or higher Note: Adopted from ADA consensus guidelines. Blood STRUCTURE OF LEFT UPPER LIMB / Unknown Venipuncture / Unknown 11/04/2024 9:00 AM ENGRAVINGS POLISHER 11/04/2024 10:20 AM ENGRAVINGS POLISHER Bry Brothers DO LAB - BLOOD ORDERABLES Fin al Result Performing Organization Address [facility] Co de Phone Number [facility] [address] [place] [address], [facility] * (ABNORMAL) CBC with platelets (11/04/2024 9:00 AM ENGRAVINGS POLISHER) WBC Count 7.2 4.0 - 11.0 10e3/uL 11/04/2024 10:25 AM [facility] RBC Count 4.05(L) 4.40 - 5.90 10e6/uL 11/04/2024 10:25 AM [facility] Hemoglobin 13.0(L) 13.3 - 17.7 g/dL 11/04/2024 10:25 AM [facility] Hematocrit 38.9(L) 40.0 - 53.0 % 11/04/2024 10:25 AM [facility] MCV 96 78 - 100 fL 11/04/2024 10:25 AM [facility] MCH 32.1 26.5 - 33.0 pg 11/04/2024 10:25 AM [facility] MCHC 33.4 31.5 - 36.5 g/dL 11/04/2024 10:25 AM [facility] RDW 14.2 10.0 - 15.0 % 11/04/2024 10:25 AM [facility] Platelet Count 195 150 - 450 10e3/uL 11/04/2024 10:25 AM [facility] Blood STRUCTURE OF LEFT UPPER LIMB / Unknown Venipuncture / Unknown 11/04/2024 9:00 AM ENGRAVINGS POLISHER 11/04/2024 10:20 AM ENGRAVINGS POLISHER us Nora Chahal MD LAB - BLOOD ORDERABLES Final R esult N LABORATORY [facility] [address] [place] [address], [facility] * Lab Result - HIM Scan (10/17/2024 2:27 PM ENGRAVINGS POLISHER) us Patient Reported MH NON-BEAKER LAB TESTING Final Result from Last 3 Months Additional Health Concerns Infection Onset Date 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 Insurance [employer] Advance Directives For more information, please contact: [phone] * Full Code (Latest Code Status on File) Date Activated Date Inactivated Comments 11/05/2024 10:24 AM 11/11/2024 5:14 PM All basic an d advanced life-sustaining interventions are performed as appropriate Question Answer Comments Code status determined by: Discussion with ady nt/ legal decision maker Care Teams Education Administrator Relationship Specialty Start Date End Date Votel, Herminio Preston [address] [place] [address] PCP - General 08/21/14 Nora Chahal MD [address] [facility], [address] [place] [address] Assigned Heart and Vascular Provider 09/21/24
--- OUTSIDE RECORDS SUMMARY | 2025-01-10 14:15 | XMS_ITS | Encounter Summary ---
Author Organization [place] Address [address] [place] [address] Care Team Providers Care Piecer Name Role Phone RonniteHerminio burrell Mohan Primary Care Provider [phone] Nora Chahal MD Unavailable [phone] Winsome Banda PA-C Unavailable [phone] Nora Chahal MD Unavailable [phone] Encounter Details Date Type Department Care Team (Late st Contact Info) Description 02/18/2017 Records - [facility] CONVERSION Scan, Non-Provider Social History Tobacco Use Types Packs/Day Years Used Date Smoking Tobacco: Never Assessed Sex and Gender Information Value Date Recorded Sex Assigned at Not on file 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 Gender Identity Not on file Sexual Orientation Not on file documented as of this encounter Plan of Treatment Upcoming Encounters Date Type Department Care Team (Late st Contact Info) Description 02/19/2025 Ancillary Procedure [facility] [address] [facility] [address] [place] [phone] Jesus Del Castillo MD [address] [facility] [address] [place], [place] [id number] 03/25/2025 1:20 PM CDT Office Visit [facility] [address] [place] [phone] Nora Chahal MD [address] [facility], [address] [place] [address] 04/06/2025 Ancillary Procedure [facility] [place] [address] [facility] [address] [place] [phone] Jesus Del Castillo MD [address] [facility] [address] [place] [address] 04/08/2025 12:50 PM CDT Office Visit [place] [address] [facility] [address] [place] [phone] Priscilla Lopez APRN [employer] TOP INSTALLER [address] [facility] [address] [place] [address] documented as of this encounter Visit Diagnoses Not on filedocumented in this encounter Additional Health Concerns Infection Onset Date Last Indicated Resolved Time MRSA-Contact Isolation Comment:Infection erroneous 10/02/2021 1 1:02 AM CREW TRUCK DRIVER 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 Care Teams Piecer Relationship Specialty Start Date End Date Herminio Napier [address] [place] [address] PCP - General 08/21/14 Nora Chahal MD [address] [facility], [address] [place] [address] Assigned Heart and Vascular Provider 04/14/21 10/23/23 Winsome Banda PA-C [address] [place] [address] Assigned Heart and Vascular Provider 10/24/23 09/20/24 Nora Chahal MD [address] [facility], [address] [place] [address] Assigned Heart and Vascular Provider 09/21/24 documented as of this encounter
--- OUTSIDE RECORDS SUMMARY | 2025-01-10 14:15 | XMS_ITS | Continuity of Care Document ---
Author Organization [facility] Address [address] [place] [phone] Care Team Providers Care Food Assembler Commissary Kitchen Name Role Phone JAVIDTEElvira LM Primary Care Provider Assessment No assessment recorded. Plan of Treatment Reminders Order Date Submit Date Provider Last Modified By Organization Details Last Modified Time Details Appointments ESTABLISH ED 20 2024 10:20A M TEAGAN MAYFIELD Not available Not available Not available Lab None recorded. Referral None recorded. Procedures None recorded. Surgeries None recorded. Imaging None recorded. Medication Orders tamsulosi n 0.4 mg capsule 2024 025 [id number], [address], [place], [address], 12/03/2024 12:24:34 Patient TargetsNo targets recorded. Patient Instructions Encounter Date Encounter Id Patient Instructions Last Modified By Organization Details Last Modified Time 12/03/2024 [id number] Patient is a 79-year-old male presents today [...] Name and Address Organization Details Recorded Time 5 COMPLEX VISIT completed TEAGAN MAYFIELD [address] [place] [address],[facility] [address], [address], [facility] 12/03/2024 13:05:30 Past Data Reviewed completed TEAGAN MAYFIELD [address] [place] [address],[facility] [address], [place], [address], [facility] 12/03/2024 13:05:39 5 Fill and Pull/Voiding Trial/TOV completed Belle Davalos [facility] 12/03/2024 12:15:00 5 Garcia Catheter Insertion completed Gerardo Skaggs [facility] 11/24/2024 09:34:45 5 Fill and Pull/Voiding Trial/TOV completed Gerardo Skaggs [facility] 11/24/2024 09:32:49 Imaging Results None recorded. Procedure Notes None recorded. Medical Equipment None [...] 0.5 TO 1 TABLET (2.5-5 MG) BY MOUNTH EVERY 6 HOURS NEEEDED FOR SEVERE PAIN. [...] No t Available Vitals Date Recorded Body height Body mass index (BMI) Body weight Provider Name and Address Organization Details Last Updated DateTime 12/03/2024 172.72 cm 33.5 kg/m2 03657.32 g Belle Anoop [facility] 12/03/2024 12:16:54 Social History Question Answer Notes LastModified by Organizat ion Details LastModified Time Tobacco Smoking Status Never Smoker Antoinette blakely [facility] 12/01/2024 11:00:03 Do You Have An Advance Directive? No [email or web address] Information not available 12/03/2024 What Is Your Level Of Alcohol Consumption? None [email or web address] Information not available 12/03/2024 What Is Your Level Of Caffeine Consumption? None [email or web address] Information not available 12/03/2024 Do You Have A Medical Power Of Modeler? No [email or web address] Information not available 12/03/2024 What Was The Date Of Your Most Recent Tobacco Screening? 12/03/2024 [email or web address] Information not available 12/03/2024 Do You Use Any Illicit Or Recreational Drugs? No Information not available 12/03/2024 Has Tobacco Cessation [...] SNOMED-CT Code Diagnosis ICD10 Code Diagnosis Note [id number] Gerardo Skaggs [facility] [address] [facility] [address] [place] [address] 11/24/2024 08:40:11 11/24/2024 09:45:04 Retention of urine 955081874 R33.9 [id number] TEAGAN MAYFIELD [facility] [address] [facility] [address] [place] [address] 12/03/2024 11:43:09 12/03/2024 13:36:01 Retention of urine [id number] R33.9 Health Concerns Section Related Observation LastModified by Organization Detai ls LastModified Time None Recorded Concern Status LastModified by Organization Details LastModified Time None Recorded Payers Encounter Date Sequence Insurance Name Policy Number Policy Fuentes Covered Member ID Fuentes Member ID Guarantor Name 12/03/2024 1 MEDICA - DOS ON OR AFTER 2020 - MEDICA GOVERNMENT PROGRAMS - ADVANTAGE SOLUTION (MEDICARE REPLACEMENT/A DVANTAGE - PPO) [id number] David Coleman [id number] David Coleman Notes Date Note Type Note Provider Name and Address Organization Details Recorded Time 12/03/2024 text/html Patient is a 79-year-old male presents today for urinary retention, voiding trial. Patient found to have urinary retention on 11/10 while at [facility] in the setting of heart failure. He failed a voiding trial on 11/24 and had Garcia catheter replaced. He is on tamsulosin 0.4 mg daily. He notes weak force of stream, nocturia at baseline. No previous urologic history. AXEL RICO, TEAGAN [address] [facility],[address], [place], [address], [facility] 12/03/2024 13:06:26
--- OUTSIDE RECORDS SUMMARY | 2025-01-10 14:15 | XMS_ITS | Encounter Summary ---
Author Organization [place] Address [address] [place] [address] Care Team Providers Care Cardiac Care Unit Nurse Name Role Phone Voteindra Herminio Preston Primary Care Provider [phone] Nora Chahal MD Unavailable [phone] Encounter Details Date Type Department Care Team (Late st Contact Info) Description 10/12/2024 Orders Only [facility] [address] [facility] [address] [place] [address] Reported, Patient Social History Tobacco Use Types Packs/Day Years Used Date Smoking Tobacco: Never Smokeless Tobacco: Former Chew Alcohol Use Standard Drinks/Week Comments No 0 (1 standard drink = 0.6 oz pur e alcohol) Adolescent Education Answer Date Record ed Getting School Help Needed Not on file 07/10 Sex and Gender Information Value Date Recorded Sex Assigned at Not on file 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 Gender Identity Not on file Sexual Orientation Not on file documented as of this encounter Plan of Treatment Upcoming Encounters Date Type Department Care Team (Late st Contact Info) Description 02/19/2025 Ancillary Procedure [facility] 1600 [facility] [address] [place] [address] Jesus Del Castillo MD 1600 [facility] [address] [place], [place] [id number] 03/25/2025 1:20 PM CDT Office Visit [place] [address] [facility] [address] [place] [phone] Nora Chahal MD 1600 [facility], [address] [place] [address] 04/06/2025 Ancillary Procedure [facility] [address] [facility] [address] [place] [address] Jesus Del Castillo MD [address] [facility] [address] [place], [place] [phone] 04/08/2025 12:50 PM CDT Office Visit [place] [address] [facility] [address] [place] [phone] Priscilla Lopez APRN PROJECT ENGINEER CHEMICALS [address] [facility] [address] [place] [address] documented as of this encounter Procedures Procedure Name Priority Date/Time Associated Diagnosis Comments LAB RESULT - HIM SCAN Routine 09/18/2024 12:53 PM PLASTIC PARTS FABRICATOR TRIMMER documented in this encounter Results * Lab Result - HIM Scan (09/18/2024 12:53 PM PLASTIC PARTS FABRICATOR TRIMMER) us Patient Reported MH NON-BEAKER LAB TESTING Final Result documented in this encounter Visit Diagnoses Not on filedocumented in this encounter Additional Health Concerns Infection Onset Date Last Indicated Resolved Time 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
--- OUTSIDE RECORDS SUMMARY | 2025-01-10 14:15 | XMS_ITS | Clinical Summary ---
Author Organization [facility] Address [address] [place] [address] Care Team Providers Care Patcher Bowling Ball Name Role Phone VotelHerminio MD Primary Care Provider + Marce Quinteros MD Unavailable [phone] Ramesh Moreno MD Unavailable [phone] Allergies No known active allergies Medications MULTIVITAMIN TAB daily 0 Act adriana ASPIRIN 81 MG TAB take 1 tablet (81mg) by oral route once daily 0 05/21/20 07 Active acetaminophen (TYLENOL) 325 mg tablet Take 1 tablet by mouth every 4 hours if needed. Max acetaminophen dose: 4000mg in 24 hrs. 0 06/08/20 20 Active predniSONE (DELTASONE) 10 mg tabletIndications: Gout, unspecified cause, unspecified chronicity, unspecified site Take 2 tabs daily as needed with onset of gout attack. 30 Tablet 1 01/24/20 23 Active CPAPIndications:OS A (obstructive sleep apnea) CPAP machine for home use at pressure 5-15 cmw, nasal pillow mask x1/3month with a nasal pillow cushion x2/mo 1 Each 11 11/05/19 24 Active blood-glucose meterIndications:C ontrolled type 2 diabetes mellitus with complication, without long-term current use of insulin (HC) As directed. Dispense meter covered by pts insurance. 1 Each 12/04/19 24 Active lancetsIndications :Type 2 diabetes mellitus without complication, without long-term current use of insulin (HC) Test 3 times per day 3 days per week. 100 Each 3 12/09/19 24 Active blood sugar diagnostic (Blood Glucose Test) stripIndications:T ype 2 diabetes mellitus without complication, without long-term current use of insulin (HC) Test 3 times per day three days per week. 100 Each 3 12/09/19 24 Active albuterol HFA (PRO-AIR; VENTOLIN; PROVENTIL) 90 mcg/actuation inhalerIndications :Chronic obstructive pulmonary disease, unspecified COPD type (HC) Inhale 1-2 Puffs by mouth every 4 hours if needed for Shortness Of Breath or Wheezing. 2 Each 3 05/27/20 24 Active metoprolol succinate (TOPROL XL) 50 mg sustained-release tabletIndications: Essential hypertension TAKE 1 TABLET BY MOUTH EVERY DAY 90 Tablet 3 11/13/19 25 Active Januvia 25 mg tablet Take 25 mg by mouth once daily. 11/11/19 25 Active sodium bicarbonate 650 mg tablet Take 650 mg by mouth. 11/11/19 25 Active tamsulosin 0.4 mg capsule Take 0.4 mg by mouth. 11/12/19 25 Active allopurinoL (ZYLOPRIM) 300 mg tablet Take 300 mg by mouth. Active gabapentin (NEURONTIN) 100 mg capsule Take 100 mg by mouth two times daily. 11/11/19 25 Active bumetanide (BUMEX) 1 mg tabletIndications: Chronic diastolic congestive heart failure (HC) Take 1 Tablet (1 mg) by mouth once daily. 90 Tablet 3 12/10/19 25 Active apixaban (ELIQUIS) 5 mg tabletIndications: Chronic diastolic congestive heart failure (HC) Take 1 Tablet (5 mg) by mouth two times daily. 60 Tablet 12/10/19 25 Active levothyroxine (SYNTHROID) 50 mcg tabletIndications: Hypothyroidism (acquired) Take 1 Tablet (50 mcg) by mouth before breakfast. Dose increase 05/08/24 90 Tablet 2 12/10/19 25 Active pravastatin (PRAVACHOL) 20 mg tabletIndications: Hyperlipidemia, unspecified hyperlipidemia type TAKE 1 TABLET BY MOUTH EVERYDAY AT BEDTIME 90 Tablet 3 12/10/19 25 Active famotidine (PEPCID) 20 mg tabletIndications: Gastroesophageal reflux disease without esophagitis Take 1 Tablet (20 mg) by mouth two times daily. 180 Tablet 3 12/10/19 25 Active gabapentin (NEURONTIN) 300 mg capsuleIndications :Neuropathic pain, leg, bilateral Take one in the morning and 2 capsules at bedtime. 12/10/19 25 Active NIFEdipine (PROCARDIA XL) 30 mg extended-release tabletIndications: Hypertension Take 1 Tablet (30 mg) by mouth once daily before a meal. 90 Tablet 3 12/10/19 25 Active Active Problems Problem Noted Date Diagnosed Date CKD (chronic kidney disease) stage 4, GFR 15-29 ml/min 11/04/2024 Sick sinus syndrome 11/04/2024 Class 2 severe obesity due t o excess calories with serious comorbidity and body mass index (BMI) of 35.0 to 35.9 in adult 11/04/2024 Diabetic mononeuropathy asso ciated with diabetes mellitus due to underlying condition 11/04/2024 Chronic diastolic congestive heart failure 12/23 Stage 3b chronic kidney disease 12/24/2023 Ischemic cardiomyopathy 03/15/2021 Cardiomyopathy 11/30/2020 Paroxysmal atrial tachycardia 11/30/2020 Stage 3 chronic kidney disease 11/30/2020 Controlled type 2 diabetes m ellitus with complication, without long-term current use of insulin 01/12/2020 Interstitial lung disease 01/12/2020 SINCLAIR (dyspnea on exertion) 08/11/2019 ICD (implantable cardioverter-defibrillator), tameka pham, in situ 06/10/2018 Overview (03/14/2022): [facility] DOI: 02/17/11 Dr. Ed Ley [facility] DOI: 02/17/11 Dr. Ed Ley Abnormal stress test 03/04/2017 FARZANA 03/18/2007 AHI- 49 HST 03/25/2023 AHI- 21 /02/2014 Other and unspecified hyperlipidemia 02/18/2007 Obesity, unspecified 02/18/2007 Coronary atherosclerosis of unspecified type of vessel, k[place] or graft 01/16/2007 Overview (02/18/2007): Status post OM stenting 11/2003 Status post RCA and PDA stenting 02/18/07 Unspecified essential hypertension 01/16/2007 Esophageal reflux 01/16/2007 Overview (02/08/2011): EGD 01/2011 hiatal hernia Resolved Problems Problem Noted Date Diagnosed Date Resolved Date Cardiac arrest 04/28/2020 11/30/2020 Cardiac arrest 02/22/2011 01/23/2017 Overview (02/22/2011): Out of hospital cardiac arrest on 02/07/2011 C. difficile diarrhea 09/28/20092016 Unspecified sleep apnea 04/10/2007/0 02/2014 Overview (04/10/2007): 03/18/2007 AHI - 49.8 CPAP Personal history of tobacco use, presenting hazards to health 02/18/2007 01/23/2017 Overview (02/18/2007): Remote history of cigar use Encounters Date Type Department Care Team Description 12/30/2024 Refill [facility] [address] [place] [address] Herminio Napier MD Refill Request (Amlodipine, Glipizide) 12/10/2024 Orders Only [facility] [address] [place] [address] Ramesh Moreno MD <No scans attached> 12/09/2024 10:25 AM CDT Office Visit [facility] [address] [place] [address] Herminio Napier MD Diabetes; Medication Management 12/09/2024 Travel 11/18/2024 1:25 PM MANAGER PAYER Office Visit [facility] [address] [place] [address] Donell James MD Hospital F/U (11/05/24, hypertension, SOB, Cass's) 11/18/2024 Travel 11/13/2024 Telephone [facility] 1400 [place] [address] Herminio Napier MD Appointment Request 11/11/2024 Refill [facility] [address] [place] [address] Herminio Napier MD Refill Request (Metoprolol Succinate) 11/04/2024 1:40 PM MANAGER PAYER Office Visit [facility] [address] [place] [address] Herminio Napire MD Preoperative Exam (11/05/24, [place],heart, artery from heart to lung) 11/04/2024 Travel 10/27/2024 Telephone [facility] [address] [place] [address] Herminio Napier MD Questions (Requests call back) from Last 3 Months Immunizations Immunization Administration Dates Next Due COVID-19 VACCINE SPIKEVAX (M ODERNA 50MCG/0.5ML) 12YO+ PFS 07/30/2023 COVID-19 vaccine (Moderna 100mcg/0.5mL) PF, MDV 10/18/2021,01/09/2021,12/12/2020 Influenza, High-dose Inactivated 06/01/2024,06/01,08/19/2014 Influenza, IIV3 (Age 6-35 mos) 08/01/2011,2008 Influenza, IIV3 (Age >=3 years) 08/12/20 13,08/01/2011,09/14/2009,1998 Influenza, Inactivated AIIV4 (Age 65+ Years) Preserv Free 07/30/2023,06/08/2020 Influenza, Inactivated IIV3 (Age 65+ Years) Preserv Free 09/01/2024,06/01/2024,07/09/2017 Pneumococcal Poly,23-Valent (Pneumovax) 01/09/2011 Pneumococcal conj 13-Valent (Prevnar 13) 08/19/2014 Td (Age >=7 Years) 06/02/1996 Td, Preservative Free (age > = 7 Years) 03/11/2019 Tdap 05/21/2007 Zoster (Shingrix-RZV, recombinant) 09/15/2019, Zoster (Zostavax-ZVL, live) 01/09/2011 Family History Medical History Relation Name Comments Psychiatric illness Father suicide Cancer Mother rectal Heart Disease Paternal Uncle Relation Name Status Comments Father suicide Mother Alive Paternal Uncle Social History Tobacco Use Types Packs/Day Years Used Date Smoking Tobacco: Former Cigars Smokeless Tobacco: Former Chew Quit: 05/21/1967 Tobacco Cessation:Counseling Given: Yes Alcohol Use Standard Drinks/Week Comments Yes 1 (1 standard drink = 0.6 oz pur e alcohol) occasional PHQ-2 Answer Date Recorded PHQ-2 TOTAL SCORE 0 03/03/2024 Social Connections Answer Date Recorded Do you often feel lonely or isolated from those around you? 0 03/03/2024 Financial Resource Strain Answer Date R ecorded Difficulty of Paying Living Expenses 3 03/03/2024 Difficulty of Paying Living Expenses Not on file 03/03/2024 Food Insecurity Answer Date Recorded Do you worry your food will run out before you are able to buy more? 1 03/03/2024 Transportation Needs Answer Date Record ed Does lack of transportation keep you from medica l appointments? 1 03/03/2024 Does lack of transportation keep you from work, meetings or getting things that you need? 1 03/03/2024 Housing Stability Answer Date Recorded What is your housing situation today? 1 03/03/2024 Interpersonal Safety Answer Date Record ed Are you being hit, kicked, p ushed or yelled at (see row info)? No 03/16/2024 Interpersonal Safety Abuse 12 - 18 Not on file 03/16/2024 Interpersonal Safety Ambulatory Vulnerability No t on file 03/16/2024 Utilities Answer Date Recorded Do you have trouble paying f or utilities (for example, heat, electricity, water, phone)? 1 03/03/2024 Sex and Gender Information Value Date Recorded Sex Assigned at Not on file Legal Sex Male 5:20 AM MANAGER PAYER Gender Identity Not on file Sexual Orientation Not on file Occupation Industry Job Start Date Job End Date [employer] Not on file Not on file Not on file Obstetrics History Last Filed Vital Signs Vital Sign Reading Time Taken Comments Blood Pressure 125/74 12/09/2024 10:41 AM CDT Pulse 86 12/09/2024 10:41 AM CDT Temperature 36.6 C (97.8 F) 11/18/2024 1:36 PM MANAGER PAYER Respiratory Rate 14 03/16/2024 2:00 PM CDT Oxygen Saturation 96% 12/09/2024 10: 41 AM CDT Inhaled Oxygen Concentration - - Weight 110.9 kg (244 lb 9.6 oz) 025 10:41 AM CDT Height 180.3 cm (5' 11) 12/09/2024 10: 41 AM CDT Body Mass Index 34.11 12/09/2024 10:41 AM CDT Plan of Treatment Upcoming Encounters Date Type Department Care Team (Late st Contact Info) Description 01/12/2025 8:20 AM CDT Office Visit [facility] [address] [place] [address] VotelHerminio MD [address] [place] [address] Health Maintenance Due Date Last Done Comments RSV vaccine for adults or (1 - 1-dose 75+ series) 2021 COVID-19 vaccine series ( season) 2024 07/30/2023, 10/18/2021, 01/09/2021, Additional history exists Depression screening for age 12+ 03/03/2025 03/03/2024, 01/23/2023, 01/12/2022, Additional history exists Medicare Wellness for age 65+ 03/04/2025, 01/23/2023, 01/11/2022, Additional history exists BMI (ht and wt on same day) for age 18+ 12/09/2025 12/09/2024, 11/18/2024, 11/04/2024, Additional history exists Tetanus booster 03/11/2029 03/11/2019, 05/01, 06/02/1996 Tdap Completed 05/21/2007 Hepatitis C screening for ag e 18-79 Completed 08/12/2013 Pneumococcal series for age 50+ Completed 4, 01/09/2011 Zoster (shingles) series for age 50+ Completed 09/15/2019, 06/23/2019, 01/09/2011 Influenza Vaccine Completed 09/01/2024, , 06/01/2024, Additional history exists Procedures Procedure Name Priority Date/Time Associated Diagnosis Comments BASIC METABOLIC PANEL Routine 12/09/2024 12:35 PM CDT CKD (chronic kidney disease) stage 4, GFR 15-29 ml/min (HC) HEMOGLOBIN A1C MONITORING (POCT) Routine 12/09/2024 10:11 AM CDT Controlled type 2 diabetes mellitus with complication, without long-term current use of insulin (HC) URINE ALBUMIN TO CREATININE RATIO, RANDOM Routine 12/09/2024 10:09 AM CDT Controlled type 2 diabetes mellitus with complication, without long-term current use of insulin (HC) BASIC METABOLIC PANEL Routine 11/18/2024 2:17 PM MANAGER PAYER Hospital discharge follow-up ANTI HCV Routine 08/12/2013 8:44 AM MANAGER PAYER Screening for HIV (human immunodeficiency virus) from Last 3 Months or Most Recently Relevant to Health Maintenance Results * (ABNORMAL) BASIC METABOLIC PANEL (12/09/2024 12:35 PM CDT) Only the most recent of2 resultswithin the time period is included. GLUCOSE 138(H) 65 - 99 mg/dL [facility] Comment: Fasting reference interval For someone without known diabetes, a glucose value >125 mg/dL indicates that they may have diabetes and this should be confirmed with a follow-up test. UREA NITROGEN (BUN) 39(H) 7 - 25 mg/dL [facility] CREATININE 2.34(H) 0.70 - 1.28 mg/dL [facility] EGFR 28(L) > OR = 60 mL/min/1.7 3m2 [facility] BUN/CREATININE RATIO 17 6 - 22 (calc) [facility] SODIUM 137 135 - 146 mmol/L [facility] POTASSIUM 5.1 3.5 - 5.3 mmol/L [facility] CHLORIDE 105 98 - 110 mmol/L [facility] CARBON DIOXIDE 20 20 - 32 mmol/L [facility] ELECTROLYTE BALANCE 12 7 - 17 mmol/L (calc) [facility] CALCIUM 9.2 8.6 - 10.3 mg/dL [facility] Blood BLOOD SPECIMEN / Unknown 12/09/2024 12:35 PM CDT 12/09/2024 12:35 PM CDT Herminio Napier MD CHEMISTRY Final Re sult [facility] [address] [place] [address], [facility] [address] [place] [address] * (ABNORMAL) HEMOGLOBIN A1C MONITORING (POCT) (12/09/2024 10:11 AM CDT) Pathologist [facility] POC HEMOGLOBIN A1C 7.0(H) <6.0 % OF TOTAL HGB [facility] Comment: Any point of care results exhibiting inconsistency with the patient's clinical status should be repeated using a different testing method. Blood BLOOD SPECIMEN / Unknown 12/09/2024 10:11 AM CDT 12/09/2024 10:11 AM CDT Herminio Napier MD CHEMISTRY Final Re sult Performing Organization Address City/[facility]/ZIP Co de Phone Number [facility] [address] [place] [address], [facility] [address] [place] [address] * (ABNORMAL) URINE ALBUMIN TO CREATININE RATIO, RANDOM (12/09/2024 10:09 AM CDT) ALB RAND URINE 337.0 mg/L 12/09/2024 7:57 PM CDT [facility] CREATININE,URIN E 0.86 g/L 12/09/2024 7:57 PM CDT [facility] ALBUMIN TO CREATININE RATIO,RAND UR 391.9(H) <30.0 mg/g creat 12/09/2024 7:57 PM CDT [facility] Urine URINE SPECIMEN / Unknown Non-Blood / Unknown 12/09/2024 10:09 AM CDT 12/09/2024 10:09 AM CDT Narrative [facility] - 12/09/2024 7:57 PM CDT If Albumin to Creatinine Ratio is elevated, consider the following: Elevations seen with incipient nephropathy associated with diabetes mellitus or hypertension. Stress, exercise,hematuria, and urinary tract infection may also produce elevated results. If clinically indicated, confirm with 24 Hour Albumin to Creatinine Ratio. Herminio Napier MD URINE Final Re sult [facility] 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 02/14/2010 02/14/2010 Insurance [employer] [place] [id number] MEDICARE PART A HB ONLY Advance Directives * Full Code (Latest Code Status on File) Date Activated Date Inactivated Comments 02/18/2007 7:29 AM 02/19/2007 2:14 PM Care Teams Patcher Bowling Ball Relationship Specialty Start Date End Date Votel, Herminio Wolf MD [address] [place] [address] PCP - General 04/24/06 Marce Quinteros MD [address] [place] [address] Rheumatology Rheumatology 01/30/17 Ramesh Moreno MD [address] [place] [address] Consulting Physician Nephrology 04/06/24
--- OUTSIDE RECORDS SUMMARY | 2025-01-10 14:15 | XMS_ITS | Encounter Summary ---
Author Organization [facility] Address [address] [place] [address] Care Team Providers Care Dance Artist Name Role Phone Herminio Napier Primary Care Provider [phone] Nora Chahal MD Unavailable [phone] Winsome Banda PA-C Unavailable [phone] Nora Chahal MD Unavailable [phone] Reason for Visit * Reason Onset Date Comments Orders 07/13/2022 Device Encounter Details Date Type Department Care Team (Late st Contact Info) Description 07/13/2022 Telephone [facility] [address] [place] [address] Nora Chahal MD [address] [facility], [address] [place] [address] Orders (Device ) Social History Tobacco Use Types Packs/Day Years Used Date Smoking Tobacco: Never Smokeless Tobacco: Former Chew Alcohol Use Standard Drinks/Week Comments No 0 (1 standard drink = 0.6 oz pur e alcohol) Sex and Gender Information Value Date Recorded Sex Assigned at Not on file Legal Sex Male 5:07 AM MEDICAL DOCTOR MD Gender Identity Not on file Sexual Orientation Not on file documented as of this encounter Miscellaneous Notes * Telephone Encounter - Kacey Fajardo - 07/13/2022 2:30 PM CDT [facility] Call Center Phone Message May a detailed message be left on voicemail: yes Reason for Call: Order(s): Other: Reason for requested: None in pts chart Date needed: 07/13/22 Provider name: Dr. Chahal Pt called to schedule in-clinic device check and follow up with Dr. Chahal. Pt does not currently have any orders in chart, please review and place orders. Thank you! [facility] Action Taken: Other: Cardiology Travel Screening: Not Applicable documented in this encounter Plan of Treatment Upcoming Encounters Date Type Department Care Team (Late st Contact Info) Description 02/19/2025 Ancillary Procedure [facility] 1600 [facility] [address] [place] [phone] Jesus Del Castillo MD 1600 [facility] [address] [place], [place] [id number] 03/25/2025 1:20 PM CDT Office Visit [address] [place] [phone] Nora Chahal MD [address] [facility], [address] [place] [address] 04/06/2025 Ancillary Procedure [facility] [address] [facility] [address] [place] [phone] Jesus Del Castillo MD [address] [facility] [address] [place], [place] [phone] 04/08/2025 12:50 PM CDT Office Visit [address] [place] [phone] Priscilla Lopez APRN CCO & PRESIDENT [address] [facility] [address] [place] [address] documented as of this encounter Visit Diagnoses Not on filedocumented in this encounter Additional Health Concerns Infection Onset Date Last Indicated Resolved Time 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 Care Teams Dance Artist Relationship Specialty Start Date End Date Herminio Napier [address] [place] [address] PCP - General 08/21/14 Nora Chahal MD 1600 [facility], [address] [place] [address] Assigned Heart and Vascular Provider 04/14/21 10/23/23 Winsome Banda PA-C [address] [place] [address] Assigned Heart and Vascular Provider 10/24/23 09/20/24 Nora Chahal MD [address] [facility], [address] [place] [address] Assigned Heart and Vascular Provider 09/21/24 documented as of this encounter
--- OUTSIDE RECORDS SUMMARY | 2025-01-10 14:15 | XMS_ITS | Encounter Summary ---
Author Organization [facility] Address [address] [place] [address] Care Team Providers Care Fitness Sales Consultant Name Role Phone Voteindra Herminio Preston Primary Care Provider [phone] Nora Chahal MD Unavailable [phone] Encounter Details Date Type Department Care Team (Late st Contact Info) Description 10/21/2024 Orders Only [facility] [address] [facility] [address] [place] [address] Reported, Patient Social History Tobacco [...] on file Legal Sex Male 5:07 AM LAP MACHINE TENDER Gender Identity Not on file Sexual Orientation Not on file documented as of this encounter Plan of Treatment Upcoming Encounters Date Type Department Care Team (Late st Contact Info) Description 02/19/2025 Ancillary Procedure [facility] [address] [facility] [address] [place] [address] Jesus Del Castillo MD [address] [facility] [address] [place], [place] [id number] 03/25/2025 1:20 PM CDT Office Visit [place] [id number] [facility] [address] [place] [phone] Nora Chahal MD [address] [facility], [address] [place] [address] 04/06/2025 Ancillary Procedure [facility] [address] [facility] [address] [place] [address] Jesus Del Castillo MD [address] [facility] [address] [place], [place] [id number] 04/08/2025 12:50 PM CDT Office Visit [place] [id number] [facility] [address] [place] [phone] Priscilla Lopez APRN [employer] [address] [facility] [address] [place] [address] documented as of this encounter Procedures Procedure Name Priority Date/Time Associated Diagnosis Comments LAB RESULT - HIM SCAN Routine 10/17/2024 2:27 PM LAP MACHINE TENDER documented in this encounter Results * Lab Result - HIM Scan (10/17/2024 2:27 PM LAP MACHINE TENDER) us Patient Reported MH NON-BEAKER LAB TESTING Final Result documented in this encounter Visit Diagnoses Not on filedocumented in this encounter Additional Health Concerns Infection Onset Date Last Indicated Resolved Time 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 Care Teams Fitness Sales Consultant Relationship Specialty Start Date End Date Votel, Herminio Preston [address] [place] [address] PCP - General 08/21/14 Nora Chahal MD [address] [facility], [facility] [address] [place] [address] Assigned Heart and Vascular Provider 09/21/24 documented as of this encounter
--- NOTE | 2025-01-10 15:06 | ED.GENADULT ---
HPI - General Adult General Time Seen by Provider: 14:34 Date Seen: 01/10/25 Chief complaint: Diabetic Related Problem Stated complaint: Blood surgar high Time Seen by Provider: 01/10/25 14:34 Source: patient, family, RN notes reviewed and old records reviewed Mode of arrival: ambulatory Limitations: no limitations History of Present Illness HPI narrative: This 80-year-old male is ambulatory into the ED accompanied by his for concern of just not feeling well. He is very tangential in his history but his peripheral neuropathy does bother him. Sounds as if it was problematic last night. He does talk about how he used to like to walk, has difficulty doing it but was able to walk [address] this past , the Saturday prior only made it 2 miles. He does report that he had ?fluid taken off? at [facility], sounds as if he was diagnosed with congestive heart failure and was hospitalized reportedly in October. He states they did going through his neck but they could not do the diet because of his kidneys. In his chart it looks like he has a diagnosis of ischemic cardiomyopathy. He has kidney functions from August and September of this past year showing creatinine of 3.4 and 2.5 respectively. He has not noted any fevers or chills. He does endorse some shortness of breath but was able to walk 4 miles this past . No chest pain. He denies any abdominal symptoms such as abdominal pain, nausea vomiting, change in bowel habits, no dysuria. Today he just states he feels crappy. He was up last night because of his peripheral neuropathy, actually took some gout pills he has for this? ? He sees Dr. Napier for his primary. He does note that his blood sugars have been high in the 3-400 range at home recently but no noted specific symptoms of infection or illness at this time. Related Data Home Medications ?Medication ?Instructions ?Recorded ?Confirmed Bumex 01/10/25 allopurinol 01/10/25 apixaban 01/10/25 aspirin 01/10/25 famotidine 01/10/25 levothyroxine 01/10/25 metformin 01/10/25 metoprolol succinate 01/10/25 nifedipine 30 mg tablet,extended 30 mg PO DAILY 01/10/25 01/10/25 release 24 hr pravastatin 20 mg tablet 20 mg PO QPM 01/10/25 01/10/25 tamsulosin 0.4 mg capsule 0.4 mg PO DAILY 01/10/25 01/10/25 Allergies Allergy/AdvReac Type Severity Reaction Status Date / Time No Known Drug Allergies Allergy Verified 01/10/25 14:27 Review of Systems Status of ROS: Reports: 6 or more systems reviewed and unremarkable except as noted in History and below Exam Const: Vital Signs, click to edit/add: Vital Signs - 24 hr 01/10/25 14:20 01/10/25 14:45 01/10/25 14:45 Temperature 96.8 F L Pulse Rate 44 L 44 L Pulse Rate [Pulse Oximeter] 44 L Respiratory Rate 16 11 L 11 L Blood Pressure 115/56 L 115/56 L Blood Pressure [Ri ght Upper Arm] 118/64 Pulse Oximetry 97 96 96 Oxygen Delivery Me thod Room Air 01/10/25 14:46 01/10/25 15:00 01/10/25 15:03 Temperature Pulse Rate 44 L 42 L 42 L Pulse Rate [Pulse Oximeter] Respiratory Rate 17 19 17 Blood Pressure 130/60 Blood Pressure [Ri ght Upper Arm] Pulse Oximetry 97 96 97 Oxygen Delivery Me thod 01/10/25 15:15 01/10/25 15:30 01/10/25 15:34 Temperature Pulse Rate 82 43 L 42 L Pulse Rate [Pulse Oximeter] Respiratory Rate 20 15 23 Blood Pressure 159/128 H Blood Pressure [Ri ght Upper Arm] Pulse Oximetry 94 96 96 Oxygen Delivery Me thod 01/10/25 15:35 01/10/25 15:45 01/10/25 16:00 Temperature Pulse Rate 42 L 42 L 44 L Pulse Rate [Pulse Oximeter] Respiratory Rate 13 15 Blood Pressure Blood Pressure [Ri ght Upper Arm] Pulse Oximetry 97 97 97 Oxygen Delivery Me thod 01/10/25 16:03 01/10/25 16:15 01/10/25 16:30 Temperature Pulse Rate 44 L 44 L Pulse Rate [Pulse Oximeter] Respiratory Rate 19 16 21 Blood Pressure 119/58 L Blood Pressure [Ri ght Upper Arm] Pulse Oximetry 96 95 Oxygen Delivery Me thod 01/10/25 16:45 01/10/25 17:00 01/10/25 17:02 Temperature Pulse Rate 42 L 42 L 42 L Pulse Rate [Pulse Oximeter] Respiratory Rate 15 9 L 12 Blood Pressure 116/61 Blood Pressure [Ri ght Upper Arm] Pulse Oximetry 97 96 96 Oxygen Delivery Me thod 01/10/25 17:15 01/10/25 17:41 01/10/25 17:45 Temperature Pulse Rate 42 L 45 L Pulse Rate [Pulse Oximeter] Respiratory Rate 18 16 Blood Pressure Blood Pressure [Ri ght Upper Arm] Pulse Oximetry 97 95 Oxygen Delivery Me thod 01/10/25 18:00 01/10/25 18:02 01/10/25 18:15 Temperature Pulse Rate Pulse Rate [Pulse Oximeter] Respiratory Rate 15 17 14 Blood Pressure 123/89 Blood Pressure [Ri ght Upper Arm] Pulse Oximetry Oxygen Delivery Me thod 01/10/25 18:30 01/10/25 18:32 01/10/25 18:45 Temperature Pulse Rate 46 L 44 L 44 L Pulse Rate [Pulse Oximeter] Respiratory Rate 17 Blood Pressure 110/56 L Blood Pressure [Ri ght Upper Arm] Pulse Oximetry 96 96 96 Oxygen Delivery Me thod 01/10/25 19:00 01/10/25 19:02 01/10/25 19:03 Temperature Pulse Rate 44 L 44 L 44 L Pulse Rate [Pulse Oximeter] Respiratory Rate 24 16 13 Blood Pressure 95/69 Blood Pressure [Ri ght Upper Arm] Pulse Oximetry 96 96 96 Oxygen Delivery Me thod 01/10/25 19:15 01/10/25 19:30 01/10/25 19:32 Temperature Pulse Rate 39 L 44 L 44 L Pulse Rate [Pulse Oximeter] Respiratory Rate 11 L 24 15 Blood Pressure 108/55 L Blood Pressure [Ri ght Upper Arm] Pulse Oximetry 97 94 95 Oxygen Delivery Me thod 01/10/25 19:33 01/10/25 19:45 01/10/25 20:02 Temperature Pulse Rate 44 L 44 L 49 L Pulse Rate [Pulse Oximeter] Respiratory Rate 12 26 H Blood Pressure Blood Pressure [Ri ght Upper Arm] Pulse Oximetry 95 95 89 Oxygen Delivery Me thod 01/10/25 20:05 01/10/25 20:15 01/10/25 20:21 Temperature Pulse Rate 44 L 62 42 L Pulse Rate [Pulse Oximeter] Respiratory Rate 12 12 29 H Blood Pressure 90/51 L Blood Pressure [Ri ght Upper Arm] Pulse Oximetry 96 96 97 Oxygen Delivery Me thod 01/10/25 20:30 01/10/25 20:33 01/10/25 20:34 Temperature Pulse Rate 43 L 44 L 44 L Pulse Rate [Pulse Oximeter] Respiratory Rate 13 17 Blood Pressure 106/93 H Blood Pressure [Ri ght Upper Arm] Pulse Oximetry 96 96 96 Oxygen Delivery Me thod 01/10/25 20:45 01/10/25 21:00 01/10/25 21:02 Temperature Pulse Rate 76 74 79 Pulse Rate [Pulse Oximeter] Respiratory Rate 15 15 15 Blood Pressure 115/78 Blood Pressure [Ri ght Upper Arm] Pulse Oximetry 97 95 96 Oxygen Delivery Me thod 01/10/25 21:03 Temperature Pulse Rate 79 Pulse Rate [Pulse Oximeter] Respiratory Rate 15 Blood Pressure Blood Pressure [Ri ght Upper Arm] Pulse Oximetry 96 Oxygen Delivery Me thod This 80-year-old male is alert, interactive, no apparent distress. Able to speak in complete sentences, quite verbose. Speech is normal. Sclera clear, conjugate gaze, face atraumatic, does have some telangiectasias on his cheeks but no rash. Neck is supple, no adenopathy. Lungs are clear, good air entry, no wheezing or crackles, no tachypnea, no accessory muscle use. CV regular rate and rhythm, no murmur normal S1-S2. Abdomen is soft, nontender, nondistended, no organomegaly, no rebound or guarding. He has no pretibial edema. He was ambulatory into the ED of his own accord. Documenting provider has reviewed patient's vital signs: yes Course Course ED Course: This patient could have really viral infection like COVID or influenza developing. He could have worsening renal issues, ischemic or congestive cardiac issues. Will start with a portable chest x-ray, EKG, cardiac monitoring and full complement of labs. Reevaluation(s) Time of Reevaluation #1: 16:57 Reevaluation #1: Reviewed with patient that he clinically is in some congestive heart failure based on his proBNP and chest x-ray, likely some of the symptoms he has been experiencing. He also has hyperkalemia, did confirm with lab and recheck is 6.9. He has received 60 mg IV Lasix, will be receiving for units IV regular insulin with a recheck of his point of care glucose 30 minutes after, can re-dose some more insulin if need be. His glucose was in the 300s on his labs. We discussed the difficulty in the complexities of treating the hyperkalemia as well as congestive heart failure. Will give him a dose of calcium gluconate 1000 mg IV for cardiac stabilization while we await some of her remedies to work. We discussed transfer where he can see nephrology and Cardiology, he is in the [facility] system. He would prefer [facility] if possible. Time of Reevaluation #2: 17:59 Reevaluation #2: Glucose down to 275, will continue to monitor. Will recheck glucose and potassium about 6:30 p.m., almost 2 hours after IV Lasix was given. We are awaiting to talk to the hospitalist at [facility], did call the [place] transfer center and did specifically ask that they check to see if [facility] would have a bed for this patient. They did not feel it was likely but will look into this. Time of Reevaluation #3: 18:08 Reevaluation #3: Urinalysis is reviewed, certainly seems to be consistent with urinary tract infection. Will cover with 1 g IV Rocephin, urine culture is ordered. Consultations Consultation #1: Have reviewed with Priscilla CHRISTINA doing triage for [facility]. We discussed his current labs, she states he is too sick to transfer, his potassium needs to be lower. Reviewed with family that I think he may need dialysis and she confirmed that they can do this there. Reviewed with family that if he were able to have his potassium reversed quickly, we would likely be able to keep him here. His most recent potassium came back at 6.5, glucose in the 240 range. Did order 100 mL normal saline, will consider further Lasix if his blood pressure has rebounded back up. Have ordered Lokelma. He will also get 2 more units regular IV insulin. She will talk to the orange grower. I reviewed with her that he may ultimately need some dialysis to help reverse this potassium. This is not something I am able to do here. Nursing staff has received reports, they have acceptance. I have not spoken with anyone again but they do have bed placement and report has been called. It is my opinion that this patient is safe for transfer and will greatly benefit from transfer there. I am worried that he may ultimately need dialysis. Time: 19:31 Vital Signs Vital signs: Initial Vital Signs Temperature 96.8 F L 01/10/25 14:20 Temperature Source Temporal Artery Scan 01/10/25 14:20 Pulse Rate 44 L 01/10/25 14:20 Respiratory Rate 16 01/10/25 14:20 Blood Pressure 118/64 01/10/25 14:20 Blood Pressure Mean 82 01/10/25 14:20 Blood Pressure Position Sitting 01/10/25 14:20 Pulse Oximetry 97 01/10/25 14:20 Oxygen Delivery Method Room Air 01/10/25 14:20 Vital Signs Temperature 96.8 F L 01/10/25 14:20 Pulse Rate 44 L 01/10/25 14:20 Respiratory Rate 16 01/10/25 14:20 Blood Pressure 118/64 01/10/25 14:20 Pulse Oximetry 97 01/10/25 14:20 Oxygen Delivery Method Room Air 01/10/25 14:20 Temperature 96.8 F L 01/10/25 14:20 Pulse Rate 79 01/10/25 21:03 Respiratory Rate 15 01/10/25 21:03 Blood Pressure 115/78 01/10/25 21:02 Pulse Oximetry 96 01/10/25 21:03 Oxygen Delivery Method Room Air 01/10/25 14:20 Medications Administered Medications: Discontinued Medications Generic Name Dose Route Start Last Admin Trade Name Freq PRN Reason Stop Dose Admin Furosemide 60 mg 01/10/25 16:27 01/10/25 16:44 Furosemide 10 Mg/Ml Inj IVP 01/10/25 16:28 60 mg ONCE ONE Administration Calcium Gluconate/Sodium Chloride 1,000 mg in 50 mls @ 100 mls/hr 01/10/25 16:48 01/10/25 17:40 Calcium Gluc 1,000mg/50 Ml IVPB 01/10/25 17:17 Infused ONCE ONE Infusion Ceftriaxone Sodium 1 gm/ 100 mls @ 200 mls/hr 01/10/25 18:08 01/10/25 19:03 Sodium Chloride IVPB 01/10/25 18:09 Infused ONCE ONE Infusion Sodium Chloride 100 mls @ 100 mls/hr 01/10/25 19:31 01/10/25 20:33 0.9 % Sodium Chloride 100 Ml IV 01/10/25 20:30 Infused .Q1H ONE Infusion Insulin Human Regular 4 unit 01/10/25 16:49 04/13/25 17:03 Insulin Regular, Human 100 Unit/Ml Vial IVP 01/10/25 16:50 4 unit ONCE ONE Administration Insulin Human Regular 2 unit 01/10/25 19:23 01/10/25 20:28 Insulin Regular, Human 100 Unit/Ml Vial IVP 01/10/25 19:24 2 unit ONCE ONE Administration Sodium Zirconium Cyclosilicate 10 gm 01/10/25 19:47 01/10/25 20:39 Sodium Zirconium Cyclosilicate 10 Gm PO 01/10/25 19:48 10 gm ONCE ONE Administration Medical Decision Making Lab Data Lab results reviewed: Yes I reviewed the patient's lab results Labs: Lab Results 01/10/25 01/10/25 01/10/25 Range/Units 15:15 15:39 16:30 WBC 7.85 (4.50-11.00) K/uL RBC 3.96 L (4.30-5.90) m/uL Hgb 11.7 L (13.5-17.5) gm/dL Hct 35.0 L (37.0-53.0) % MCV 88 (80-100) fL MCH 30 (26-34) pg MCHC 33 (32-36) gm/dL RDW Coeff of Suraj 13.4 (11.5-15.5) % Plt Count 249 (140-440) K/uL Neut % (Auto) 88.5 H (42.0-72.0) % Lymph % (Auto) 4.5 L (20-44) % Woodford % (Auto) 5.2 (0.0-11.0) % Eos % (Auto) 0.0 (0.0-7.0) % Baso % (Auto) 0.1 (0.0-3.0) % Neut # (Auto) 6.90 (1.7-7.0) K/uL Lymph # (Auto) 0.40 L (0.90-2.90) K/uL Woodford # (Auto) 0.40 (0.00-0.90) K/UL Eos # (Auto) 0.00 (0.00-0.50) K/uL Baso # (Auto) 0.01 (0.00-0.30) K/uL Abs Immat Gran (auto) 0.13 (0.00-0.30) K/uL Imm/Tot Granulo (auto) 1.7 % Sodium 133 L (135-149) mmol/L Potassium 6.6 H* 6.9 H* (3.6-5.1) mmol/L Chloride 105 (96-114) mmol/L Carbon Dioxide 13 L (20-32) mmol/L Anion Gap 15 (7-15) mEq/L BUN 77 H (7-30) mg/dL Creatinine 2.8 H (0.5-1.5) mg/dL Estimated Creat Clear 22.78 Estimated GFR 22 ml/min Glucose 349 H (60-115) mg/dL Lactate 2.8 H (0.5-1.9) mmol/L Calcium 9.5 (8.4-10.6) mg/dL Magnesium 2.3 (1.5-2.6) mg/dL Total Bilirubin 0.5 (0.1-1.5) mg/dL AST 26 (12-35) U/L ALT 26 (4-50) U/L Alkaline Phosphatase 110 (40-150) U/L Troponin I < 0.01 (0.01-0.04) ng/mL C-Reactive Protein 3.4 H (0.5-1.0) mg/dL NT-Pro-B Natriuret Pep 8250 pg/mL Total Protein 7.5 (6.0-8.3) g/dL Albumin 4.3 (3.3-5.0) g/dL Urine Color (Yellow) Urine Appearance (Clear) Urine pH (5.0-8.5) Ur Specific Hudson (1.000-1.030) Urine Protein (Negative) Urine Glucose (UA) (Negative) Urine Ketones (Negative) Urine Blood (Negative) Urine Nitrite (Negative) Urine Bilirubin (Negative) Urine Urobilinogen (0.2-1.0) Ur Leukocyte Esterase (Negative) Urine RBC (0-2) Urine WBC (0-5) Ur Squamous Epith Cells (None-Few) Other Sediment (None) Urine Bacteria (None) Urine Yeast (None) SARS-CoV-2 (PCR) Negative SARS-CoV-2 (Negative) Influenza Type A (PCR) Negative PCR FLU A (Negative) Influenza Type B (PCR) Negative PCR FLU B (Negative) RSV (PCR) Negative PCR RSV (Negative) POC Glucose (60-115) mg/dl 01/10/25 01/10/25 01/10/25 Range/Units 17:35 17:36 18:40 WBC (4.50-11.00) K/uL RBC (4.30-5.90) m/uL Hgb (13.5-17.5) gm/dL Hct (37.0-53.0) % MCV (80-100) fL MCH (26-34) pg MCHC (32-36) gm/dL RDW Coeff of Usraj (11.5-15.5) % Plt Count (140-440) K/uL Neut % (Auto) (42.0-72.0) % Lymph % (Auto) (20-44) % Woodford % (Auto) (0.0-11.0) % Eos % (Auto) (0.0-7.0) % Baso % (Auto) (0.0-3.0) % Neut # (Auto) (1.7-7.0) K/uL Lymph # (Auto) (0.90-2.90) K/uL Woodford # (Auto) (0.00-0.90) K/UL Eos # (Auto) (0.00-0.50) K/uL Baso # (Auto) (0.00-0.30) K/uL Abs Immat Gran (auto) (0.00-0.30) K/uL Imm/Tot Granulo (auto) % Sodium (135-149) mmol/L Potassium 6.5 H* (3.6-5.1) mmol/L Chloride (96-114) mmol/L Carbon Dioxide (20-32) mmol/L Anion Gap (7-15) mEq/L BUN (7-30) mg/dL Creatinine (0.5-1.5) mg/dL Estimated Creat Clear Estimated GFR ml/min Glucose 264 H (60-115) mg/dL Lactate (0.5-1.9) mmol/L Calcium (8.4-10.6) mg/dL Magnesium (1.5-2.6) mg/dL Total Bilirubin (0.1-1.5) mg/dL AST (12-35) U/L ALT (4-50) U/L Alkaline Phosphatase (40-150) U/L Troponin I (0.01-0.04) ng/mL C-Reactive Protein (0.5-1.0) mg/dL NT-Pro-B Natriuret Pep pg/mL Total Protein (6.0-8.3) g/dL Albumin (3.3-5.0) g/dL Urine Color Yellow (Yellow) Urine Appearance Cloudy A (Clear) Urine pH 5.5 (5.0-8.5) Ur Specific Hudson 1.020 (1.000-1.030) Urine Protein 2+ A (Negative) Urine Glucose (UA) Trace A (Negative) Urine Ketones Negative (Negative) Urine Blood 2+ A (Negative) Urine Nitrite Negative (Negative) Urine Bilirubin Negative (Negative) Urine Urobilinogen 0.2 (0.2-1.0) Ur Leukocyte Esterase 3+ A (Negative) Urine RBC 10-25 A (0-2) Urine WBC >100 A (0-5) Ur Squamous Epith Cells None (None-Few) Other Sediment Few A (None) Urine Bacteria Moderate A (None) Urine Yeast Few A (None) SARS-CoV-2 (PCR) (Negative) Influenza Type A (PCR) (Negative) Influenza Type B (PCR) (Negative) RSV (PCR) (Negative) POC Glucose 275 H (60-115) mg/dl 01/10/25 Range/Units 21:05 WBC (4.50-11.00) K/uL RBC (4.30-5.90) m/uL Hgb (13.5-17.5) gm/dL Hct (37.0-53.0) % MCV (80-100) fL MCH (26-34) pg MCHC (32-36) gm/dL RDW Coeff of Suraj (11.5-15.5) % Plt Count (140-440) K/uL Neut % (Auto) (42.0-72.0) % Lymph % (Auto) (20-44) % Woodford % (Auto) (0.0-11.0) % Eos % (Auto) (0.0-7.0) % Baso % (Auto) (0.0-3.0) % Neut # (Auto) (1.7-7.0) K/uL Lymph # (Auto) (0.90-2.90) K/uL Woodford # (Auto) (0.00-0.90) K/UL Eos # (Auto) (0.00-0.50) K/uL Baso # (Auto) (0.00-0.30) K/uL Abs Immat Gran (auto) (0.00-0.30) K/uL Imm/Tot Granulo (auto) % Sodium (135-149) mmol/L Potassium (3.6-5.1) mmol/L Chloride (96-114) mmol/L Carbon Dioxide (20-32) mmol/L Anion Gap (7-15) mEq/L BUN (7-30) mg/dL Creatinine (0.5-1.5) mg/dL Estimated Creat Clear Estimated GFR ml/min Glucose (60-115) mg/dL Lactate (0.5-1.9) mmol/L Calcium (8.4-10.6) mg/dL Magnesium (1.5-2.6) mg/dL Total Bilirubin (0.1-1.5) mg/dL AST (12-35) U/L ALT (4-50) U/L Alkaline Phosphatase (40-150) U/L Troponin I (0.01-0.04) ng/mL C-Reactive Protein (0.5-1.0) mg/dL NT-Pro-B Natriuret Pep pg/mL Total Protein (6.0-8.3) g/dL Albumin (3.3-5.0) g/dL Urine Color (Yellow) Urine Appearance (Clear) Urine pH (5.0-8.5) Ur Specific Hudson (1.000-1.030) Urine Protein (Negative) Urine Glucose (UA) (Negative) Urine Ketones (Negative) Urine Blood (Negative) Urine Nitrite (Negative) Urine Bilirubin (Negative) Urine Urobilinogen (0.2-1.0) Ur Leukocyte Esterase (Negative) Urine RBC (0-2) Urine WBC (0-5) Ur Squamous Epith Cells (None-Few) Other Sediment (None) Urine Bacteria (None) Urine Yeast (None) SARS-CoV-2 (PCR) (Negative) Influenza Type A (PCR) (Negative) Influenza Type B (PCR) (Negative) RSV (PCR) (Negative) POC Glucose 220 H (60-115) mg/dl Imaging Data Chest x-ray: Attestation: I have reviewed the pertinent imaging results. My impression: Increased interstitial markings that certainly could be consistent with fluid overload, await radiology over read. Radiologist's impression: Patient: KARINA HENRIQUEZ Facility:?[facility] Patient ID:?[id number] Site Patient ID:?[id number]. Site :?[id number] Study:?XRay-Chest Portable one view-01/10/2025 3:18:22 PM Ordering Physician:Aye Kapoor Final Report: Indication: Weakness Comparison: Single-view chest June 03, 2020 Technique: Single AP view chest Findings: There is hyperinflation and chronic interstitial change. There are diffusely increased interstitial markings likely representing pulmonary vascular congestion. There is no pneumothorax or pleural effusion. The cardiac silhouette is stable with dual-chamber ICD. The bony thorax is grossly intact. Impression: Diffusely increased interstitial markings likely representing pulmonary vascular congestion. Dictated by Quintin Altamirano MD @ 01/10/2025 3:30:52 PM (Electronic Signature) ECG Data Attestation: I personally reviewed and interpreted this ECG as follows: (Can see pacemaker, yuan noted, rate is 85 beats per minute.) Prior ECG tracings: not available for review Discharge Plan Discharge Clinical Impression: Congestive heart failure, Acute hyperkalemia, Chronic kidney disease (CKD), Urinary tract infection Prescriptions: No Action aspirin Bumex apixaban levothyroxine pravastatin 20 mg tablet 20 mg PO QPM famotidine nifedipine 30 mg tablet extended release 24hr 30 mg PO DAILY tamsulosin 0.4 mg capsule 0.4 mg PO DAILY allopurinol metoprolol succinate metformin Follow Up/Referrals: Herminio Napier MD [Primary Care Provider] -
--- NOTE | 2025-01-10 15:07 | CRLHL7_ITS ---
For Patients: As a result of the Century Cures Act, medical imaging exams and procedure reports are released immediately into your electronic medical record. You may view this report before your referring provider. If you have questions, please contact your health care provider. Indication: Weakness Comparison: Single-view chest June 03, 2020 Technique: Single AP view chest Findings: There is hyperinflation and chronic interstitial change. There are diffusely increased interstitial markings likely representing pulmonary vascular congestion. There is no pneumothorax or pleural effusion. The cardiac silhouette is stable with dual-chamber ICD. The bony thorax is grossly intact. Impression: Diffusely increased interstitial markings likely representing pulmonary vascular congestion. Dictated by Quintin Altamirano MD @ 01/10/2025 3:30:52 PM (Electronically Signed)
[2025-01-10 15:44] LABS: Lactate* 2.8 mmol/L (0.5-1.9)
--- OUTSIDE RECORDS SUMMARY | 2025-01-10 15:44 | XMS_ITS | Clinical Summary ---
Author Organization [facility] Address [address] [place] [address] Care Team Providers Care Surface Boss Name Role Phone None Reported, Pcp Primary Care Provider Unavail able Source Comments Patient records contain information from all sites at [facility]. For routine questions regarding patient records, call [phone] during business hours, M-F 8:00 AM - 5:00 PM Central Time. 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 at [facility] Ocular Lens Left: Eye [employer] (Previously NAT) [id number] 12/23/2026 [id number] / [id number] / Lens Tcn [id number] Bicnvx +18.5d - [id number] - [id number] Implanted:Qty : 1 on 06/24/2024 by Rene Carrera M.D. at [facility] Ocular Lens Right: Eye [employer] (Previously NAT) [id number] 11/30/2027 [id number] / [id number] / Insurance [place] [id number] Advance Directives For more information, please contact: [phone] * Full Code (Latest Code Status on File) Date Activated Date Inactivated Comments 06/24/2024 8:53 AM 06/24/2024 11:14 AM Question Answer Comments Full Code: Discussed * Full Code Date Activated Date Inactivated Comments 06/10/2024 11:21 AM 06/10/2024 1:33 PM Question Answer Comments Full Code: Discussed Care Teams Surface Boss Relationship Specialty Start Date End Date None Reported, Pcp PCP - General Family Medicine 06/10/24
--- OUTSIDE RECORDS SUMMARY | 2025-01-10 15:44 | XMS_ITS | Encounter Summary ---
Author Organization [facility] Address [address] [place] [address] Care Team Providers Care Senior Control Systems Engineer Name Role Phone Unavailable Primary Care Provider Unavailabl e Encounter Details Date Type Department Care Team (Late st Contact Info) Description 02/06/2011 2:50 PM CDT [facility] in [address] [phone] Kareem Suggs MD [facility] [address] [place] [address] [address] [place] [address] Social History Tobacco Use Types Packs/Day Years Used Date Smoking Tobacco: Never Smokeless Tobacco: Former Chew Alcohol Use Standard Drinks/Week Comments No 0 (1 standard drink = 0.6 oz pur e alcohol) Sex and Gender Information Value Date Recorded Sex Assigned at Not on file 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 Gender Identity Not on file Sexual Orientation Not on file documented as of this encounter Plan of Treatment Upcoming Encounters Date Type Department Care Team (Late st Contact Info) Description 02/19/2025 Ancillary Procedure [facility] Heart [facility] [address] [facility] [address] [place] [phone] Jesus Del Castillo MD [address] [facility] [address] [place] [address] 03/25/2025 1:20 PM CDT Office Visit [facility] [address] [facility] [address] [place] [address] Nora hCahal MD [address] [facility], [address] [place] [address] 04/06/2025 Ancillary Procedure [facility] [address] [facility] [address] [place] [phone] Jesus Del Castillo MD [address] [facility] [address] [place] [address] 04/08/2025 12:50 PM CDT Office Visit [place] [address] [facility] [address] [place] [address] Priscilla Lopez APRN CNP [address] [facility] [address] [place] [address] documented as of this encounter Visit Diagnoses Not on filedocumented in this encounter Additional Health Concerns Infection Onset Date Last Indicated Resolved Time MRSA-Contact Isolation Comment:Infection erroneous 10/02/2021 1 1:02 AM SLAG PRODUCTION WORKER 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
--- OUTSIDE RECORDS SUMMARY | 2025-01-10 15:44 | XMS_ITS ---
Author Organization [facility] Address [address] [place] [address] Care Team Providers Care Moccasin Sewer Name Role Phone VoteHerminio burrell Primary Care Provider [phone] Nora Chahla MD Unavailable [phone] Transitional Care Management Status:Closed (Closed) Start date:11/12/2024 Enrollment date:11/12/2024 End date:11/26/2024 Close reason:Goals met Continued Care and Services Coordination
--- OUTSIDE RECORDS SUMMARY | 2025-01-10 15:44 | XMS_ITS | Encounter Summary ---
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 [facility] Reason for call: Lab Result [...] Will send a letter. RN Recommendations/Instructions per [facility] ED lab result protocol: [facility] ED lab result protocol utilized: Urine Culture Advise to discontinue current antibiotic. Instruct to start antibiotic: Augmentin pending patient assessment. Letter pended to be sent via USPS mail. LULÚ PRIDE RN IGHTENING PRESS OPERATOR documented in this encounter Plan of Treatment Upcoming Encounters Date Type Department Care Team (Late st Contact Info) Description 02/19/2025 Ancillary Procedure [address] [place] [address] Jesus Del Castillo MD [address] [facility] [address] [place] [address] 03/25/2025 1:20 PM CDT Office Visit [address] [place] [phone] Nora Chahal MD [address] [facility], [address] [place] [address] 04/06/2025 Ancillary Procedure [facility] [address] [facility] [address] [place] [address] Jesus Del Castillo MD [address] 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, [address] [place] [address] Assigned Heart and Vascular Provider 09/21/24 documented as of this encounter
--- OUTSIDE RECORDS SUMMARY | 2025-01-10 15:44 | XMS_ITS | Encounter Summary ---
Author Organization [facility] Address [address] [place] [address]. 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 200 [place] [address] 03/25/2025 1:20 PM CDT Office Visit [facility] [address] [facility] [address] [place] [address] Nora Chahal MD [address] [facility], [address] [place] [address] 04/06/2025 Ancillary Procedure [facility] [address] [facility] [address] [place] [address] Jesus Del Castillo MD 1600 [facility] [address] [place] [address] 04/08/2025 12:50 PM CDT Office Visit [facility] Heart [facility] [address] [facility] [address] [place] [address] Priscilla Lopez APRN [facility] 1600 [facility] [address] [place] [address] documented as of this encounter Visit Diagnoses Not on filedocumented in this encounter Additional Health Concerns Infection Onset Date Last Indicated Resolved Time 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
--- OUTSIDE RECORDS SUMMARY | 2025-01-10 15:44 | XMS_ITS | Encounter Summary ---
Author Organization [facility] Address [address] [place] [address] Care Team Providers Care Catch Basin Cleaner Name Role Phone Votel Herminio Preston Primary Care Provider [phone] Nora Chahal MD Unavailable [phone] Reason for Referral * Consultation (Routine) - Pending Review Specialty Diagnoses / Procedures Referred By Contac t Referred To Contact Cardiovascular Disease Diagnoses Paroxysmal atrial fibrillation (H) Ischemic cardiomyopathy Chronic systolic heart failure (H) Jesus Del Castillo MD [address] [facility] [address] [place] [address] Phone: tel: fax: Referral ID Status Reason Start Date Expiration Date V isits Requested Visits Authorized [id number] Pending Review 12/10/2024 12/10/2025 1 1 Question Answer Follow-up with: RAKAN - EP RAKAN Reason for follow-up: EP EP Cardiology: DEVICE Patient Scheduling Instructions: [facility] will call you to coordinate your care as prescribed by your provider. If you have concerns about scheduling, please call [phone]. Comments [facility] will call you to coordinate your care as prescribed by your provider. If you have concerns about scheduling, please call [phone]. Reason for Visit * Reason Comments Follow Up * Consultation (Routine) - Pending Review Specialty Diagnoses / Procedures Referred By Contac t Referred To Contact Cardiovascular Disease Diagnoses A-fib (H) Nora Chahal MD [address] [facility], [address] [place] [address] Phone: tel: fax: Referral ID Status Reason Start Date Expiration Date V isits Requested Visits Authorized [id number] Pending Review 11/13/2024 11/13/2025 1 1 Encounter Details Date Type Department Care Team (Late st Contact Info) Description 12/10/2024 3:20 PM CDT Office Visit [facility] [address] [facility] [address] [place] [address] Jesus Del Castillo MD [address] 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 [facility] Cardiac Electrophysiology 1600 [facility] [address] [place] [address] Office: [phone] Cardiac Electrophysiology Consultation Patient: David Coleman : 1945 Referring Provider: Ravindra Chahal MD Primary Care Provider: Herminio Napier Primary Cyber Incident Responder: Ravindra Chahal MD CHIEF COMPLAINT/REASON FOR CONSULTATION [...] chappell. Arrhythmia hx Dx/date: 11/26/2024 (via ICD) [id number] score = 6 (age 3, DM, HTN, [...] need for escalating doses of diuretic. ASCVD, [place] vessel: Patient has no signs or symptoms [...] Coronary Angiogram; Surgeon: Kevin Diallo MD; Location: [facility] Hole Puncher Strap; Service: CV RIGHT HEART CATH MEASUREMENTS RECORDED N/A 11/05/2024 Procedure: Right Heart Catheterization with Shunt Run; Surgeon: Jarrett La MD; Location: [facility] CV EP ICD GENERATOR REPLACEMENT DUAL N/A 09/12/2022 Procedure: Implantable Cardioverter Defibrillator Generator Replacement Dual; Surgeon: Jesus Del Castillo MD; Location: [facility] CV MO L HRT CATH W/NJX L VENTRICULOGRAPHY IMG S&I N/A 03/04/2017 Procedure: Left Heart Catheterization with Left Ventriculogram; Surgeon: Kevin Diallo MD; Location: [facility] Puncher Strap; Service: Cardiology Family History Social History No [...] results for input(s): TROPONINI in the last 17685 hours. Recent Labs Lab Test 11/05/24 1537 09/04/24 1312 08/11/19 1552 BNP -- -- 14 NTBNPI 3,284* -- -- NTBNP -- 2,164* -- Recent Labs Lab Test 11/06/24 0427 TSH 3.08 No results for input(s): INR in the last 46731 hours. Data Review ECGs dated 11/05/2024 (tracings [...] st Contact Info) Description 02/19/2025 Ancillary Procedure [facility] [address] [place] [address] Jesus Del Castillo MD [address] [facility] [address] [place], [place] [address] 03/25/2025 1:20 PM CDT Office Visit [place] [address] [facility] [address] [place] [phone] Nora Chahal MD [address] [facility], [address] [place], [place] [address] 04/06/2025 Ancillary Procedure [facility] [address] [facility] [address] [place] [phone] Jesus Del Castillo MD [address] [facility] [address] [place], [place] [address] 04/08/2025 12:50 PM CDT Office Visit [place] [address] [facility] [address] [place] [phone] Priscilla Lopez APRN CNP [address] [facility] [address] [place], [place] [address] Scheduled Referrals Name Type Priority Associated Diagnoses [...] documented as of this encounter Care Teams Catch Basin Cleaner Relationship Specialty Start Date End Date RonniteHerminio burrell [address] [place] [address] PCP - General 08/21/14 Nora Chahal MD [address] [facility], [address] [place] [address] Assigned Heart and Vascular Provider 09/21/24 documented as of this encounter
[2025-01-10 15:45] LABS: Basophils Absolute Auto 0.01 K/uL (0.00-0.30); Basophils Percent Auto 0.1 % (0.0-3.0); Hemoglobin* 11.7 gm/dL (13.5-17.5); Immature Granulocytes Abs Auto 0.13 K/uL (0.00-0.30); Immature Granulocytes Pct Auto 1.7 %; Lymphocytes Percent Auto 4.5 % (20-44); Mean Corpuscular HGB Conc 33 gm/dL (32-36); Mean Corpuscular Hemoglobin 30 pg (26-34); Mean Corpuscular Volume 88 fL (80-100); Monocytes Percent Auto 5.2 % (0.0-11.0); Neutrophils Percent Auto 88.5 % (42.0-72.0); Platelet Count* 249 K/uL (140-440); RDW Coefficient of Variation % 13.4 % (11.5-15.5); Red Blood Count 3.96 m/uL (4.30-5.90); White Blood Count* 7.85 K/uL (4.50-11.00)
--- OUTSIDE RECORDS SUMMARY | 2025-01-10 15:45 | XMS_ITS | Encounter Summary ---
Author Organization [facility] Address [address] [place] [address]. [place] [address] Care Team Providers Care Hardware Technician Name Role Phone Ronniteindra Herminio Preston Primary Care Provider [phone] Nora Chahal MD Unavailable [phone] Reason for Visit * Reason Onset Date Comments AF alert 12/01/2024 Encounter Details Date Type Department Care Team (Late st Contact Info) Description 12/01/2024 Telephone [facility] [address] [facility] [address] [place] [address] Megan Rawls RN AF alert [...] in an abandoned building, in an overnight [facility], or couch-surfing.) Yes 11/05/2024 Are you worried [...] on file Legal Sex Male 5:07 AM REGISTRY NP Gender Identity Not on file Sexual Orientation [...] Will continue to monitor. Megan Rawls RN STRY NP * Telephone Encounter - Megan Rawls RN - 12/01/2024 7:36 AM CST Images from the original note were not included. Encounter Type: Alert 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 Courtesy check. Data was compiled on 11/27/24 for review and interpretation on 12/01/24. Device: [employer] Momentum. Pacing %/Programmed: AP 1%, HYDROGRAPHY TEACHER 1% at DDDR 55/130 ppm. Lead(s): [...] Bee Device Specialist ADD: Transmission reviewed, see [facility] for details. Megan Rawls RN 12/01/24: Spoke with patient briefly. Notified patient of AF last week and asked if he recalls any symptoms. He responded with what is AF? Attempted to explain AF but patient interrupted insurance underwriter sales stating I'm busy. Asked if there was [...] AF and possible ablation. Megan Rawls RN STRY NP documented in this encounter Plan of Treatment Upcoming Encounters Date Type Department Care Team (Late st Contact Info) Description 02/19/2025 Ancillary Procedure [facility] Heart [facility] [address] [facility] [address] [place] [address] Jesus Del Castillo MD [address] [facility] [address] [place] [address] 03/25/2025 1:20 PM CDT Office Visit [address] [place] [phone] Nora Chahal MD [address] [facility], [address] [place] [address] 04/06/2025 Ancillary Procedure [facility] [place] 1600 [facility] [address] [place] [address] Jesus Del Castillo MD [address] [facility] [address] [place] [address] 04/08/2025 12:50 PM CDT Office Visit 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
--- OUTSIDE RECORDS SUMMARY | 2025-01-10 15:45 | XMS_ITS | Encounter Summary ---
Author Organization [facility] Address [address] [place] [address]. 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 Gender Identity Not on file Sexual Orientation Not on file documented as of this encounter Plan of Treatment Upcoming Encounters Date Type Department Care Team (Late st Contact Info) Description 02/19/2025 Ancillary Procedure [address] [place] [address] Jesus Del Castillo MD [address] [facility] [address] [place] [address] 03/25/2025 1:20 PM CDT Office Visit [facility] [address] [facility] [address] [place] [address] Nora Chahal MD [address] [facility], [address] [place] [address] 04/06/2025 Ancillary Procedure [facility] 1600 [facility] [address] [place] [address] Jesus Del Castillo MD [address] [facility] [address] [place] [address] 04/08/2025 12:50 PM CDT Office Visit [facility] [address] [facility] [address] [place] [address] Priscilla Lopez APRN [facility] [address] [facility] [address] [place] [address] documented as of this encounter Visit Diagnoses Not on filedocumented in this encounter Additional Health Concerns Infection Onset Date Last Indicated Resolved Time 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
--- OUTSIDE RECORDS SUMMARY | 2025-01-10 15:45 | XMS_ITS | Encounter Summary ---
Author Organization [facility] Address [address] [place] [address]. [place] [address] Care Team Providers Care Oxygen Therapist Name Role Phone Voteindra Herminio Preston Primary Care Provider [phone] Nora Chahal MD Unavailable [phone] Reason for Visit * Reason Onset Date Comments Patient/info Update 12/11/2024 Encounter Details Date Type Department Care Team (Late st Contact Info) Description 12/11/2024 Telephone [facility] [address] [facility] [address] [place] [address] Sulema Delacruz, RN Patient/info Update [...] in an abandoned building, in an overnight [facility], or couch-surfing.) Yes 11/05/2024 Are you worried [...] on file 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 Note. PC note created and postponed to 12/15 to contact pt per request 12/11/2024 7:54 AM GOSIA Riojas Stuart, MD [facility] Ep Support Pool - [facility] team, Please see my note from today. Can one of the recheck of the patient next week to see if he wishes to move forward with ablation of his atrial fibrillation. If he declines I have scheduled him for a 3-month follow-up with the EP RAKAN. If he decides to move forward mapping system Guzamn/YOLIE. Bhavik Lee documented in this encounter Plan of Treatment Upcoming Encounters Date Type Department Care Team (Late st Contact Info) Description 02/19/2025 Ancillary Procedure [facility] [address] [facility] [address] [place] [phone] Jesus Del Castillo MD 1600 [facility] [address] [place] [address] 03/25/2025 1:20 PM CDT Office Visit [address] [place] [phone] Nora Chahal MD [address] [address] 04/06/2025 Ancillary Procedure [facility] [address] [facility] [address] [place] [address] Jesus Del Castillo MD 1600 [facility] [address] [place] [address] 04/08/2025 12:50 PM CDT Office Visit [address] [place] [phone] Priscilla Lopez APRN [facility] [address] [address] documented as of this encounter Visit Diagnoses Not on filedocumented in this encounter Additional Health Concerns Infection Onset Date Last Indicated Resolved Time 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
--- OUTSIDE RECORDS SUMMARY | 2025-01-10 15:45 | XMS_ITS | Encounter Summary ---
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 Sick sinus syndrome (H) Procedures Cardiac Device Check - Remote Jesus Del Castillo MD [address] [address] Phone: tel: fax: Referral ID Status Reason Start Date Expiration Date V isits Requested Visits Authorized [id number] Pending Review 12/10/2024 12/10/2025 100 100 * CV Testing (Routine) - Pending Review Specialty Diagnoses / Procedures Referred By Contac t Referred To Contact Diagnoses 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 Sick sinus syndrome (H) Procedures Cardiac Device Check - In Clinic Jesus Del Castillo MD 1600 [facility] [address] [place] [address] Phone: tel: fax: Referral ID Status Reason Start Date Expiration Date V isits Requested Visits Authorized [id number] Pending Review 12/10/2024 12/10/2025 50 50 Reason for Visit * CV Testing (Routine) - Pending Review Specialty Diagnoses / Procedures Referred By Delma t Referred To Contact Diagnoses 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 Sick sinus syndrome (H) Procedures Cardiac Device Check - In Clinic Jesus Del Castillo MD 1600 [facility] [address] [place] [address] Phone: tel: fax: Referral ID Status Reason Start Date Expiration Date V isits Requested Visits Authorized [id number] Pending Review 09/04/2024 09/04/2025 50 50 Encounter Details Date Type Department Care Team (Latest Contact Info) Description 12/10/2024 2:30 PM CDT Ancillary Procedure [facility] Heart [facility] 1600 [facility] [address] [place] [phone] Jesus Del Castillo MD 1600 [facility] [address] [place], [place] [phone] 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 (Primary [...] in an abandoned building, in an overnight residential, or couch-surfing.) Yes 11/05/2024 Are you worried [...] on file Legal Sex Male 5:07 AM COOK MESS Gender Identity Not on file Sexual Orientation Not on file documented as of this encounter Plan of Treatment Upcoming Encounters Date Type Department Care Team (Late st Contact Info) Description 02/19/2025 Ancillary Procedure [address] [place] [address] Jesus Del Castillo MD 1600 [facility] [address] [address] [place] [address] 03/25/2025 1:20 PM CDT Office Visit [facility] [address] [facility] [address] [place] [phone] Nora Chahal MD [address] [facility], [address] [place] [address] 04/06/2025 Ancillary Procedure [facility] 1600 [facility] [address] [place] [address] Jesus Del Castillo MD 1600 [facility] [address] [place], [place] [address] 04/08/2025 12:50 PM CDT Office Visit [facility] [address] [facility] [address] [place] [phone] Priscilla Lopez APRN [facility] [address] [facility] [address] [place], [place] [id number] Scheduled Orders Name Type Priority Associated Diagnoses [...] 1:56 PM CDT) Date Time Interrogation Session [id number] [employer] Implantable Pulse Generator Pediatrician [place] [employer] Implantable Pulse Generator Model D121 MOMENTUM EL ICD [employer] Implantable Pulse Generator Serial Number [id number] [employer] Type Interrogation Session In Clinic [facility] Clinic Name [facility] [employer] Implantable Pulse Generator Type Defibrillator [employer] Implantable Pulse Generator Implant Date 20220912 [employer] Implantable Lead Pediatrician [employer] Implantable Lead Model 4470 Fineline II Sterox EZ [employer] Implantable Lead Serial Number [id number] [employer] Implantable Lead Implant Date 20110217 [employer] Implantable Lead Polarity Type Bipolar Lead [employer] Implantable Lead Location Detail 1 APPENDAGE [employer] Implantable Lead Location Right Atrium [employer] Implantable Lead Connection Status Connected [employer] Implantable Lead Pediatrician [employer] Implantable Lead Model 0158 [place] [employer] Implantable Lead Serial Number [id number] [employer] Implantable Lead Implant Date 20110217 [employer]IC [...] ms [employer] Battery Date Time of Measurements [id number] [employer] Battery Status Beginning of Service [employer] Battery Remaining Longevity 138 mo [employer] Battery Remaining Percentage 100 % [employer] Capacitor Charge Type Reformation [employer] Capacitor Last Charge Date Time [id number] [employer] Capacitor Charge Time 10.1 s [employer] Charlie Statistic Date Time Start [id number] [employer] Charlie Statistic Date Time End [id number] [employer] Charlie Statistic RA Percent Paced 1 % [employer] Charlie Statistic RV Percent Paced 1 % [employer] Atrial Tachy Statistic Date Time Start [id number] [employer] Atrial Tachy Statistic Date Time End [id number] [employer] Atrial Tachy Statistic AT/AF [place] Percent 1 % [employer] Therapy Statistic Recent Shocks Delivered 0 [employer] Therapy Statistic Recent Shocks Aborted 0 [employer] Therapy Statistic Recent ATP Delivered 1 [employer] Therapy Statistic Recent Date Time Start [id number] [employer] Therapy Statistic Recent Date Time End [id number] [employer] Therapy Statistic Total Shocks Delivered 0 [employer] Therapy Statistic Total Shocks Aborted 0 [employer] Therapy Statistic Total ATP Delivered 1 [employer] Therapy Statistic Total Date Time Start [id number] [employer] Therapy Statistic Total Date Time End [id number] [employer] Episode Statistic Recent Count 0 MED[employer]IC [...] [employer] Episode Statistic Recent Date Time Start [id number] [employer] Episode Statistic Recent Date Time End [id number] [employer] Episode Statistic Recent Date Time Start [id number] [employer] Episode Statistic Recent Date Time End [id number] [employer] Episode Statistic Recent Date Time Start [id number] [employer] Episode Statistic Recent Date Time End [id number] [employer] Episode Statistic Recent Date Time Start [id number] [employer] Episode Statistic Recent Date Time End [id number] [employer] Anatomical Region Laterality Modality Other 12/10/2024 2:05 PM CDT Narrative 12/10/2024 3:25 PM CDT Encounter type: Pt. seen in clinic for annual device evaluation and iterative programming. Followed by an appointment with Dr. Del Castillo for AF consult, per Dr. Chahal. Device: BOSCIThomas (D) ICD Pacing %/Programmed: AP- <1%, CAP AND STUD MACHINE OPERATOR- <1%, DDDR 55/130 Lead(s): Stable Battery [...] documented as of this encounter Care Teams Director Data Analytics Relationship Specialty Start Date End Date Votel, Herminio Preston [address] [place] [address] PCP - General 08/21/14 Nora Chahal MD 1600 [facility], [address] [place] [address] Assigned Heart and Vascular Provider 09/21/24 documented as of this encounter
--- OUTSIDE RECORDS SUMMARY | 2025-01-10 15:45 | XMS_ITS | Encounter Summary ---
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 Sick sinus syndrome (H) Procedures Cardiac Device Check - Remote Jesus Del Castillo MD [address] [facility] [address] [place] [address] Phone: tel: fax: Referral ID Status Reason Start Date Expiration Date V isits Requested Visits Authorized [id number] Pending Review 09/04/2024 09/04/2025 100 100 Encounter Details Date Type Department Care Team (Latest Contact Info) Description 11/27/2024 Ancillary Procedure [facility] Heart [facility] 1600 [facility] [address] [place] [address] Jesus Del Castillo MD 1600 [facility] [address] [place] [address] ICD (implantable cardioverter-defibri llator) battery [...] on file Legal Sex Male 5:[address] Gender Identity Not on file Sexual Orientation Not on file documented as of this encounter Plan of Treatment Upcoming Encounters Date Type Department Care Team (Late st Contact Info) Description 02/19/2025 Ancillary Procedure [address] [place] [address] Jesus Del Castillo MD 1600 [facility] [address] [place], [place] [address] 03/25/2025 1:20 PM CDT Office Visit [place] [address] [facility] [address] [place] [phone] Nora Chahal MD [address] [facility], [address] [place], [place] [address] 04/06/2025 Ancillary Procedure [facility] [address] [facility] [address] [place] [phone] Jesus Del Castillo MD [address] [facility] [address] [place], [place] [address] 04/08/2025 12:50 PM CDT Office Visit [place] [address] [facility] [address] [place] [phone] Priscilla Lopez APRN CNP 1600 [facility] [address] [place], [place] [phone] documented as of this encounter Procedures Procedure Name Priority Date/Time Associated Diagnosis Comments COURTESY DEVICE CHECK Routine 12/01/2024 7:[address] MENDER 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 Sick sinus syndrome (H) documented in this encounter Results * COURTESY DEVICE CHECK (12/01/2024 7:[address] MENDER) Date Time Interrogation Session [id number] [employer] Implantable Pulse Generator Conference Reservationist [place] [employer] Implantable Pulse Generator Model D121 MOMENTUM EL ICD [employer] Implantable Pulse Generator Serial Number [id number] [employer] Type Interrogation Session Remote Device Initiated [facility] Clinic [facility] [employer] Implantable Pulse Generator Type Defibrillator [employer] Implantable Pulse Generator Implant Date 20220912 [employer] Implantable Lead Conference Reservationist Cardiac Pacemakers Inc [employer] Implantable Lead Model 4470 Fineline II Sterox EZ [employer] Implantable Lead Serial Number [id number] [employer] Implantable Lead Implant Date 20110217 [employer] Implantable Lead Polarity Type Bipolar Lead [employer] Implantable Lead Location Detail 1 APPENDAGE [employer] Implantable Lead Location Right Atrium [employer] Implantable Lead Connection Status Connected [employer] Implantable Lead Conference Reservationist Guidant [employer] Implantable Lead Model 0158 [place] [employer] Implantable Lead Serial Number [id number] [employer] Implantable Lead Implant Date 20110217 MEDTR[employer]IC [...] ms [employer] Battery Date Time of Measurements [id number] [employer] Battery Status Beginning of Service [employer] Battery Remaining Longevity 126 mo [employer] Battery Remaining Percentage 100 % [employer] Capacitor Charge Type Reformation [employer] Capacitor Last Charge Date Time [id number] [employer] Capacitor Charge Time 10.1 s [employer] Charlie Statistic Date Time Start [employer] Charlie Statistic Date Time End [employer] Charlie Statistic RA Percent Paced 1 % [employer] Charlie Statistic RV Percent Paced 1 % [employer] Atrial Tachy Statistic Date Time Start [employer] Atrial Tachy Statistic Date Time End [employer] Atrial Tachy Statistic AT/AF [place] Percent 1 % [employer] Therapy Statistic Recent Shocks Delivered 0 [employer] Therapy Statistic Recent Shocks Aborted 0 [employer] Therapy Statistic Recent ATP Delivered 1 [employer] Therapy Statistic Recent Date Time Start [employer]IC Therapy Statistic Recent Date Time End [id number] [employer] Therapy Statistic Total Shocks Delivered 0 [employer] Therapy Statistic Total Shocks Aborted 0 [employer] Therapy Statistic Total ATP Delivered 1 [employer] Therapy Statistic Total Date Time Start [id number] [employer] Therapy Statistic Total Date Time End 75851360018000 [employer] Episode Statistic Recent Count 1 MEDTRONIC [...] MEDTRONIC Episode Statistic Recent Date Time Start [id number] [employer]TR[employer]IC Episode Statistic Recent Date Time End [id number] [employer] Episode Statistic Recent Date Time Start [id number] [employer]IC Episode Statistic Recent Date Time End [id number] [employer]IC Episode Statistic Recent Date Time Start [id number] [employer]TR[employer]IC Episode Statistic Recent Date Time End [id number] [employer]TR[employer] Episode Statistic Recent Date Time Start [id number] [employer] Episode Statistic Recent Date Time End [id number] [employer] Episode Statistic Recent Date Time Start [id number] [employer] Episode Statistic Recent Date Time End 09308409982405 [employer] Episode Identifier [id number] [employer] Episode Type Category Periodic EGM [employer]IC Episode Date Time [id number] [employer] Episode Identifier [id number] [employer] Episode Type Category Other [employer]IC Episode Date Time [id number] [employer]IC Episode Identifier [id number] [employer] Episode Type Category Other [employer]IC Episode Date Time [id number] [employer] Episode Identifier [id number] [employer] Episode Type Category AT/AF [employer] Episode Date Time [id number] [employer] Episode Duration 33,427 s [employer]IC Episode Identifier [id number] [employer] Episode Type Category Periodic EGM [employer]IC Episode Date Time [id number] [employer] Episode Identifier [id number] [employer] Episode Type Category Other [employer]IC Episode Date Time [id number] [employer] Episode Identifier [id number] [employer] Episode Type Category Other [employer]IC Episode Date Time [id number] [employer]IC Episode Identifier [id number] [employer]IC Episode Type Category Periodic EGM [employer]IC Episode Date Time [id number] [employer] Episode Identifier [id number] [employer] Episode Type Category Other [employer]ONIC Episode Date Time [id number] [employer] Episode Identifier [id number] [employer] Episode Type Category Other [employer]IC Episode Date Time [id number] [employer] Anatomical Region Laterality Modality Other 11/27/2024 4:[address] Narrative 12/01/2024 5:[address] M[address]ER Encounter Type: Alert 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 Courtesy check. Data was compiled on 11/27/24 for review and interpretation on 12/01/24. Device: [employer]SCI Momentum. Pacing %/Programmed: AP 1%, RESOURCE COORDINATOR 1% at DDDR 55/130 ppm. Lead(s): stable. [...] Bee, Device Specialist ADD: Transmission reviewed, see [facility] for details. Megan Rawls RN Device [...] documented as of this encounter Care Teams Faith Healer Relationship Specialty Start Date End Date VoteHerminio burrell [address] [place] [address] PCP - General 08/21/14 Nora Chahal MD 1600 [facility], [address] [place] [address] Assigned Heart and Vascular Provider 09/21/24 documented as of this encounter
--- OUTSIDE RECORDS SUMMARY | 2025-01-10 15:45 | XMS_ITS | Encounter Summary ---
Author Organization [place] Address [address] [place] [address]. [place] [address] Care Team Providers Care Backup Administrative Coordinator Name Role Phone RonniteHerminio burrell Primary Care Provider [phone] Nora Chahal MD Unavailable [phone] Reason for Referral * Consultation (Routine) - Pending Review Specialty Diagnoses / Procedures Referred By Contac t Referred To Contact Cardiovascular Disease Diagnoses Acute diastolic heart failure (H) Nora Chahal MD 1600 [facility], [address] [place] [address] Phone: tel: fax: Referral ID Status Reason Start Date Expiration Date V isits Requested Visits Authorized [id number] Pending Review 11/27/2024 11/27/2025 1 1 Question Answer Follow-up with: Self Patient Scheduling Instructions: [facility] will call you to coordinate your care as prescribed by your provider. If you have concerns about scheduling, please call [phone]. Comments [facility] will call you to coordinate your care as prescribed by your provider. If you have concerns about scheduling, please call [phone]. CARVING MACHINE OPERATOR Reason for Visit * Reason Comments Follow Up * Consultation (Urgent: 3-5 Days) - Pending Review Specialty Diagnoses / Procedures Referred By Contac t Referred To Contact Cardiovascular Disease Diagnoses Acute diastolic heart failure (H) [employer] DO [address] [place] [address] Phone: tel: fax: Referral ID Status Reason Start Date Expiration Date V isits Requested Visits Authorized [id number] Pending Review 11/11/2024 11/11/2025 1 1 Encounter Details Date Type Department Care Team (Latest Contact Info) Description 11/27/2024 10:50 AM WOOD CARVING MACHINE OPERATOR Office Visit [facility] [address] [facility] [address] [place] [address] Nora Chahal MD [address] [facility], [address] [place] [address] Acute diastolic heart failure (H) [...] in an abandoned building, in an overnight penitentiary, or couch-surfing.) Yes 11/05/2024 Are you worried [...] file Legal Sex Male 5:07 AM WOOD CARVING MACHINE OPERATOR Gender Identity Not on file Sexual Orientation Not on file documented as of this encounter Last Filed Vital Signs Vital Sign Reading Time Taken Comments Blood Pressure 110/58 11/27/2024 10:43 AM WOOD CARVING MACHINE OPERATOR Pulse 88 11/27/2024 10:43 AM WOOD CARVING MACHINE OPERATOR Temperature - - Respiratory Rate 28 11/27/2024 10:43 AM WOOD CARVING MACHINE OPERATOR Oxygen Saturation - - Inhaled Oxygen Concentration - - Weight 114.3 kg (252 lb) 11/27/2024 10:43 AM WOOD CARVING MACHINE OPERATOR Height 180.3 cm (5' 11) 11/27/2024 10:43 AM WOOD CARVING MACHINE OPERATOR Body Mass Index 35.15 11/27/2024 10:43 AM WOOD CARVING MACHINE OPERATOR documented in this encounter Patient Instructions * Patient Instructions* Nora Chahal MD - 11/27/2024 10:50 AM WOOD CARVING MACHINE OPERATOR Mr David Coleman, I enjoyed visiting with [...] on seeing you 3-4 months. Ravindra Chahal CARVING MACHINE OPERATOR documented in this encounter Progress Notes * Nora Chahal MD - 11/27/2024 10:50 AM CST Images from the original note were not included. [facility] Follow-up Note Assessment & [...] ICD (implantable cardioverter-defibrillator), dual, in situ Comment: [employer] device with [employer] leads placed January 2011, less than [...] w/Device KIT DIRECTED. DISPENSE METER COVERED BY [employer]. cefdinir (OMNICEF) 300 MG capsule Take [...] 130 (L) 11/25/2024 CO2 21 (L) 11/25/2024 CARVING MACHINE OPERATOR documented in this encounter Plan of Treatment Upcoming Encounters Date Type Department Care Team (Late st Contact Info) Description 02/19/2025 Ancillary Procedure [address] [place] [phone] Jesus Del Castillo MD [address] [facility] [address] [place] [address] 03/25/2025 1:20 PM CDT Office Visit [place] [address] [facility] [address] [place] [phone] Nora Chahal MD [address] [facility], [address] [place], [place] [address] 04/06/2025 Ancillary Procedure [facility] [address] [facility] [address] [place] [phone] Jesus Del Castillo MD [address] [facility] [address] [place], [place] [address] 04/08/2025 12:50 PM CDT Office Visit [facility] [address] [facility] [address] [place] [phone] Priscilla Lopez APRN REFINING EQUIPMENT OPERATOR [address] [facility] [address] [place] [address] Scheduled Referrals Name Type Priority Associated Diagnoses [...] documented as of this encounter Care Teams Backup Administrative Coordinator Relationship Specialty Start Date End Date RonniteHerminio burrell [address] [place] [address] PCP - General 08/21/14 Nora Chahal MD [address] [facility], [address] [place] [address] Assigned Heart and Vascular Provider 09/21/24 documented as of this encounter
--- OUTSIDE RECORDS SUMMARY | 2025-01-10 15:45 | XMS_ITS | Clinical Summary ---
Author Organization [facility] Address [address] [place] [id number] Care Team Providers Care Tobacco Blender Name Role Phone Voteindra Herminio Preston Primary Care Provider Nora Chahal MD Unavailable [phone] Allergies No known active allergies Medications [...] Active Blood Glucose Monitoring Suppl (ACCU-CHEK GUIDE OH) w/Device KIT DIRECTED. DISPENSE METER COVERED BY [...] ml/min 09/04/2024 Type 2 diabetes mellitus, [facility] current use of insulin 06/07/2021 Ischemic cardiomyopathy 03/15/2021 SINCLAIR (dyspnea on exertion) 08/11/2019 ICD (implantable cardioverter-defibrillator)tameka, in situ 06/10/2018 Overview (03/31/2021): [employer] Teligen DOI: 02/17/11 Dr. Ed Ley FARZANA [...] Type Department Care Team Description 12/11/[address] [place] [phone] Sulema Delacruz RN Patient/info Update 12/10/2024 3:20 PM CDT Office Visit [address] [place] [phone] Jesus Del Castillo MD Paroxysmal atrial fibrillation (H) (Primary Dx); Benign essential hypertension; Ischemic cardiomyopathy; ICD (implantable cardioverter-defibrill ator), dual, in situ 12/10/2024 2:30 PM CDT Ancillary Procedure [address] [place] [phone] Jesus Del Castillo MD ICD (implantable cardioverter-defibrill ator) battery depletion (Primary Dx); Sick sinus syndrome (H) 12/10/2024 Travel 12/01/[address] [place] [phone] Megan Rawls RN AF alert 11/29/2024 Telephone [facility] [place] [phone] Lulú Pride RN Results 11/27/2024 10:50 AM PATIENT SERVICE REPRESENTATIVE Office Visit [address] [place] [phone] Nora Chahal MD Acute diastolic heart failure [...] GFR 15-29 ml/min (H) 11/27/2024 Ancillary Procedure [address] [place] [phone] Jesus Del Castillo MD ICD (implantable cardioverter-defibrill ator) battery depletion; Sick sinus syndrome (H) 11/27/2024 Travel 11/25/2024 2:52 PM PATIENT SERVICE REPRESENTATIVE - 11/25/2024 3:09 PM PATIENT SERVICE REPRESENTATIVE Emergency [facility] Emergency Room [address] [place] [phone] Catalina Wright PA-C UTI (urinary tract infection); Chi catheter problem, initial encounter Discharge Disposition: Home or Self Care 11/24/2024 8:11 PM PATIENT SERVICE REPRESENTATIVE - 11/24/2024 11:22 PM PATIENT SERVICE REPRESENTATIVE Emergency [facility] Emergency Room [address] [place] [phone] Martinez Sales MD Peake, Benjamin J, MD Chi catheter problem, initial encounter Discharge Disposition: Home or Self Care 11/24/2024 Travel 11/12/[address] [phone] Sammie Melendez, RN Alert for A.fib, Not on OAC 11/11/2024 Ancillary Procedure [address] [place] [phone] Jesus Del Castillo MD ICD (implantable cardioverter-defibrill ator) battery depletion; Sick sinus syndrome (H) 11/06/[address] [place] [phone] Esperanza Vivienne LAITH Burrell 11/05/2024 10:30 AM PATIENT SERVICE REPRESENTATIVE - 11/05/2024 12:30 PM PATIENT SERVICE REPRESENTATIVE Surgery [address] [phone] Jarrett Porras MD Right Heart Catheterization with Shunt Run 11/05/2024 7:12 AM PATIENT SERVICE REPRESENTATIVE - 11/11/2024 3:04 PM PATIENT SERVICE REPRESENTATIVE Hospital Encounter [address] [phone] Jarrett Porras MD Halla, John Charles, DO [...] Self Care 11/05/2024 Travel 11/04/2024 9:00 AM PATIENT SERVICE REPRESENTATIVE Lab [address] [place] [phone] Pre-procedure lab exam 11/04/2024 Travel 11/02/2024 Prep for Procedure [address] [phone] Jeannie Theodore RN Ischemic cardiomyopathy (Primary Dx); SINCLAIR (dyspnea on exertion); Shortness of breath; Acute diastolic heart failure (H) 10/21/2024 Orders Only [address] [phone] Reported, Patient 10/21/2024 Telephone [facility] [address] [facility] [address] [place] [phone] Jeannie Theodore, RN BMP Results 10/12/2024 Orders Only [facility] [address] [place] [phone] Reported, Patient 10/12/2024 Telephone [facility] [address] [place] [phone] Jeannie Theodore, porcelain slusher Question (Bumex) from Last 3 Months Immunizations [...] in an abandoned building, in an overnight senior care, or couch-surfing.) Yes 11/05/2024 Are you worried [...] on file Legal Sex Male 5:07 AM PATIENT SERVICE REPRESENTATIVE Gender Identity Not on file Sexual Orientation Not on file Last Filed Vital Signs Vital Sign Reading Time Taken Comments Blood Pressure 126/70 12/10/2024 3:14 PM CDT Pulse 76 12/10/2024 3:14 PM CDT Temperature 36.3 C (97.4 F) 11/25/2024 10:21 AM PATIENT SERVICE REPRESENTATIVE Respiratory Rate 20 12/10/2024 3:14 PM CDT Oxygen Saturation 98% 12/10/2024 3:14 PM CDT Inhaled Oxygen Concentration - - Weight 113.4 kg (250 lb) 12/10/2024 3:14 PM CDT Height 180.3 cm (5' 11) 11/27/2024 10:43 AM PATIENT SERVICE REPRESENTATIVE Body Mass Index 34.87 11/27/2024 10:43 AM PATIENT SERVICE REPRESENTATIVE Plan of Treatment Upcoming Encounters Date Type Department Care Team (Late st Contact Info) Description 02/19/2025 Ancillary Procedure [facility] [address] [place] [phone] Jesus Del Castillo MD [address] [facility] [address] [place] [address] 03/25/2025 1:20 PM CDT Office Visit [address] [place] [phone] Nora Chahal MD [address] [facility] [place] [address] 04/06/2025 Ancillary Procedure [facility] [address] [facility] [address] [place] [phone] Jesus Del Castillo MD [address] [facility] [address] [place] [address] 04/08/2025 12:50 PM CDT Office Visit [address] [place] [phone] Priscilla Lopez APRN LAW RESEARCHER [address] [facility] [address] [place] [address] Health Maintenance Due Date Last Done Comments [...] (Cologuard) Discontinued Medical Devices Implanted Type Area Analysis Engineer Device Identifier Shelf Expiration Date Model / Serial / Lot Icd Momentum El D121 - [id number] Implanted:Qty: 1 on 09/12/2022 at [facility] ICD Left: Chest Wall [employer] 07/03/2024 D121 / [id number] / [id number] [place] Scie* 4470 Fineline Ii Sterox Ez [id number] Implanted:01/29 (Quantity not on file) Leads [employer] 4470 FINELINE II STEROX EZ / [id number] / Guidant Pamela 0158 [place] [id number] Implanted:01/29 (Quantity not on file) Leads [employer]- 0158 ENDOTAK RELIANCE / [id number] / Explanted Type Area Analysis Engineer Device Identifier Shelf Expiration Date Model / Serial / Lot [place] Scie* E110 Teligen [id number] Implanted:02/17 (Quantity not on file) Explanted:Qty: 1 on 09/12/2022 by Jesus Del Castillo MD ICD [employer] E110 TELIGEN 100 / [id number] / Procedures Procedure Name Priority Date/Time Associated Diagnosis Comments ICD DEVICE PROGRAMMING EVAL, DUAL LEAD ICD Routine 12/10/2024 1:56 PM CDT ICD (implantable cardioverter-defib rillator) battery depletion Sick sinus syndrome (H) PATHOLOGY RESULT - HIM SCAN 12/10/2024 12:00 AM CDT COURTESY DEVICE CHECK Routine 12/01/2024 7:03 AM PATIENT SERVICE REPRESENTATIVE ICD (implantable cardioverter-defib rillator) battery depletion Sick sinus syndrome (H) CBC WITH PLATELETS & DIFFERENTIAL STAT 11/25/2024 1:43 PM PATIENT SERVICE REPRESENTATIVE CBC WITH PLATELETS AND DIFFERENTIAL STAT 11/25/2024 1:43 PM PATIENT SERVICE REPRESENTATIVE BASIC METABOLIC PANEL STAT 11/25/2024 1:43 PM PATIENT SERVICE REPRESENTATIVE URINE CULTURE STAT 11/24/2024 9:59 PM PATIENT SERVICE REPRESENTATIVE ROUTINE UA WITH MICROSCOPIC REFLEX TO CULTURE STAT 11/24/2024 9:59 PM PATIENT SERVICE REPRESENTATIVE INTERROGATION DEVICE EVAL REMOTE ICD UP TO 90 Routine 11/12/2024 8:10 AM PATIENT SERVICE REPRESENTATIVE ICD (implantable cardioverter-defib rillator) battery depletion Sick sinus syndrome (H) GLUCOSE BY METER Routine 11/11/2024 11:5 1 AM PATIENT SERVICE REPRESENTATIVE GLUCOSE BY METER Routine 11/11/2024 8:12 AM PATIENT SERVICE REPRESENTATIVE RENAL PANEL Routine 11/11/2024 5:02 AM PATIENT SERVICE REPRESENTATIVE GLUCOSE BY METER Routine 11/11/2024 2:09 AM PATIENT SERVICE REPRESENTATIVE GLUCOSE BY METER Routine 11/10/2024 10:0 7 PM PATIENT SERVICE REPRESENTATIVE UA MACROSCOPIC WITH REFLEX TO MICRO AND CULTURE Routine 11/10/2024 8:31 PM PATIENT SERVICE REPRESENTATIVE GLUCOSE BY METER Routine 11/10/2024 6:01 PM PATIENT SERVICE REPRESENTATIVE GLUCOSE BY METER Routine 11/10/2024 12:2 7 PM PATIENT SERVICE REPRESENTATIVE GLUCOSE BY METER Routine 11/10/2024 8:05 AM PATIENT SERVICE REPRESENTATIVE EXTRA PURPLE TOP EDTA (LAB USE ONLY) Routine 11/10/2024 5:15 AM PATIENT SERVICE REPRESENTATIVE BASIC METABOLIC PANEL Routine 11/10/2024 5:14 AM PATIENT SERVICE REPRESENTATIVE GLUCOSE BY METER Routine 11/09/2024 9:29 PM PATIENT SERVICE REPRESENTATIVE GLUCOSE BY METER Routine 11/09/2024 5:19 PM PATIENT SERVICE REPRESENTATIVE ROUTINE UA WITH MICROSCOPIC REFLEX TO CULTURE Routine 11/09/2024 5:15 PM PATIENT SERVICE REPRESENTATIVE SODIUM RANDOM URINE Routine 11/09/2024 5 :15 PM PATIENT SERVICE REPRESENTATIVE US RENAL COMPLETE NON-VASCULAR Routine 11/09/2024 3:50 PM PATIENT SERVICE REPRESENTATIVE GLUCOSE BY METER Routine 11/09/2024 12:0 0 PM PATIENT SERVICE REPRESENTATIVE FOLATE Routine 11/09/2024 11:34 AM PATIENT SERVICE REPRESENTATIVE GLUCOSE BY METER Routine 11/09/2024 7:54 AM PATIENT SERVICE REPRESENTATIVE CK TOTAL Add-On 11/09/2024 4:43 AM PATIENT SERVICE REPRESENTATIVE VITAMIN B12 Add-On 11/09/2024 4:43 AM PATIENT SERVICE REPRESENTATIVE MAGNESIUM Routine 11/09/2024 4:43 AM PATIENT SERVICE REPRESENTATIVE RENAL PANEL Routine 11/09/2024 4:43 AM PATIENT SERVICE REPRESENTATIVE HEMOGLOBIN Routine 11/09/2024 4:43 AM PATIENT SERVICE REPRESENTATIVE GLUCOSE BY METER Routine 11/08/2024 10:2 8 PM PATIENT SERVICE REPRESENTATIVE GLUCOSE BY METER Routine 11/08/2024 4:55 PM PATIENT SERVICE REPRESENTATIVE GLUCOSE BY METER Routine 11/08/2024 12:1 8 PM PATIENT SERVICE REPRESENTATIVE GLUCOSE BY METER Routine 11/08/2024 7:20 AM PATIENT SERVICE REPRESENTATIVE EXTRA PURPLE TOP EDTA (LAB USE ONLY) Routine 11/08/2024 4:47 AM PATIENT SERVICE REPRESENTATIVE RENAL PANEL Routine 11/08/2024 4:46 AM PATIENT SERVICE REPRESENTATIVE GLUCOSE BY METER Routine 11/07/2024 5:16 PM PATIENT SERVICE REPRESENTATIVE GLUCOSE BY METER Routine 11/07/2024 11:3 6 AM PATIENT SERVICE REPRESENTATIVE GLUCOSE BY METER Routine 11/07/2024 8:19 AM PATIENT SERVICE REPRESENTATIVE CBC WITH PLATELETS & DIFFERENTIAL Routine 11/07/2024 4:41 AM PATIENT SERVICE REPRESENTATIVE CBC WITH PLATELETS AND DIFFERENTIAL Routine 11/07/2024 4:41 AM PATIENT SERVICE REPRESENTATIVE RENAL PANEL Routine 11/07/2024 4:41 AM PATIENT SERVICE REPRESENTATIVE GLUCOSE BY METER Routine 11/06/2024 10:5 6 PM PATIENT SERVICE REPRESENTATIVE GLUCOSE BY METER Routine 11/06/2024 4:57 PM PATIENT SERVICE REPRESENTATIVE POTASSIUM Routine 11/06/2024 3:27 PM PATIENT SERVICE REPRESENTATIVE GLUCOSE BY METER Routine 11/06/2024 12:0 9 PM PATIENT SERVICE REPRESENTATIVE GLUCOSE BY METER Routine 11/06/2024 7:30 AM PATIENT SERVICE REPRESENTATIVE CBC WITH PLATELETS & DIFFERENTIAL Routine 11/06/2024 4:27 AM PATIENT SERVICE REPRESENTATIVE TSH WITH FREE T4 REFLEX Add-On 11/06/2024 4:27 AM PATIENT SERVICE REPRESENTATIVE CBC WITH PLATELETS AND DIFFERENTIAL Routine 11/06/2024 4:27 AM PATIENT SERVICE REPRESENTATIVE COMPREHENSIVE METABOLIC PANEL Routine 11/06/2024 4:27 AM PATIENT SERVICE REPRESENTATIVE GLUCOSE BY METER Routine 11/05/2024 9:20 PM PATIENT SERVICE REPRESENTATIVE MRSA CULTURE Routine 11/05/2024 9:02 PM PATIENT SERVICE REPRESENTATIVE POTASSIUM Timed 11/05/2024 6:57 PM PATIENT SERVICE REPRESENTATIVE GLUCOSE BY METER Routine 11/05/2024 5:20 PM PATIENT SERVICE REPRESENTATIVE NT PROBNP INPATIENT Routine 11/05/2024 3 :37 PM PATIENT SERVICE REPRESENTATIVE PROTEIN RANDOM URINE Routine 11/05/2024 3:19 PM PATIENT SERVICE REPRESENTATIVE UA MACROSCOPIC WITH REFLEX TO MICRO AND CULTURE Routine 11/05/2024 3:19 PM PATIENT SERVICE REPRESENTATIVE GLUCOSE BY METER Routine 11/05/2024 11:0 1 AM PATIENT SERVICE REPRESENTATIVE CV RIGHT HEART CATH MEASUREMENTS RECORDED Routine 11/05/2024 9:56 AM PATIENT SERVICE REPRESENTATIVE Ischemic cardiomyopathy Acute diastolic heart failure (H) Orthopnea SINCLAIR (dyspnea on exertion) BLOOD GAS VENOUS POCT Routine 11/05/2024 9:42 AM PATIENT SERVICE REPRESENTATIVE BLOOD GAS VENOUS POCT Routine 11/05/2024 9:40 AM PATIENT SERVICE REPRESENTATIVE BLOOD GAS VENOUS POCT Routine 11/05/2024 9:38 AM PATIENT SERVICE REPRESENTATIVE BLOOD GAS VENOUS POCT Routine 11/05/2024 9:37 AM PATIENT SERVICE REPRESENTATIVE GLUCOSE BY METER Routine 11/05/2024 7:55 AM PATIENT SERVICE REPRESENTATIVE BASIC METABOLIC PANEL Add-On 11/05/2024 7:35 AM PATIENT SERVICE REPRESENTATIVE POTASSIUM Routine 11/05/2024 7:35 AM PATIENT SERVICE REPRESENTATIVE ECG 12-LEAD WITH MUSE SJN,SJO,WWH Routine 11/05/2024 7:27 AM PATIENT SERVICE REPRESENTATIVE Ischemic cardiomyopathy Acute diastolic heart failure (H) SINCLAIR (dyspnea on exertion) Shortness of breath EKG CARDIAC - HIM SCAN 12:00 AM PATIENT SERVICE REPRESENTATIVE ABO/RH TYPE AND SCREEN Routine 9:00 AM PATIENT SERVICE REPRESENTATIVE Pre-procedure lab exam TYPE AND SCREEN, ADULT Routine 9:00 AM PATIENT SERVICE REPRESENTATIVE Pre-procedure lab exam HEMOGLOBIN A1C Routine 11/04/2024 9:00 AM PATIENT SERVICE REPRESENTATIVE LIPID REFLEX TO DIRECT LDL PANEL Routine 11/04/2024 9:00 AM PATIENT SERVICE REPRESENTATIVE Pre-procedure lab exam CBC WITH PLATELETS Routine 11/04/2024 9: 00 AM PATIENT SERVICE REPRESENTATIVE Pre-procedure lab exam BASIC METABOLIC PANEL Routine 11/04/2024 9:00 AM PATIENT SERVICE REPRESENTATIVE Pre-procedure lab exam LAB RESULT - HIM SCAN Routine 10/17/2024 2:27 PM PATIENT SERVICE REPRESENTATIVE from Last 3 Months Results * ICD DEVICE PROGRAMMING EVAL, DUAL LEAD ICD (12/10/2024 1:56 PM CDT) Date Time Interrogation Session [id number] [employer] Implantable Pulse Generator Analysis Engineer [place] [employer] Implantable Pulse Generator Model D121 MOMENTUM EL ICD [employer] Implantable Pulse Generator Serial Number [id number] [employer] Type Interrogation Session In Clinic [facility] [employer] Implantable Pulse Generator Type Defibrillator [employer] Implantable Pulse Generator Implant Date 20220912 [employer] Implantable Lead Analysis Engineer [employer] Implantable Lead Model 4470 Fineline II Sterox EZ [employer] Implantable Lead Serial Number [id number] [employer] Implantable Lead Implant Date 20110217 [employer] Implantable Lead Polarity Type Bipolar Lead [employer] Implantable Lead Location Detail 1 APPENDAGE [employer] Implantable Lead Location Right Atrium [employer] Implantable Lead Connection Status Connected [employer] Implantable Lead Analysis Engineer Guidant [employer] Implantable Lead Model 0158 End[employer]ak [place] [employer] Implantable Lead Serial Number [id number] [employer] Implantable Lead Implant Date 20110217 MED[employer]IC [...] Reformation [employer] Capacitor Last Charge Date Time [id number] [employer] Capacitor Charge Time 10.1 s [employer] Charlie Statistic Date Time Start [employer] Charlie Statistic Date Time End [employer] Charlie Statistic RA Percent Paced 1 % [employer] Charlie Statistic RV Percent Paced 1 % [employer] Atrial Tachy Statistic Date Time Start [employer] Atrial Tachy Statistic Date Time End [id number] [employer] Atrial Tachy Statistic AT/AF [place] Percent 1 % [employer] Therapy Statistic Recent Shocks Delivered 0 [employer] Therapy Statistic Recent Shocks Aborted 0 [employer] Therapy Statistic Recent ATP Delivered 1 [employer] Therapy Statistic Recent Date Time Start [id number] [employer] Therapy Statistic Recent Date Time End [id number] [employer] Therapy Statistic Total Shocks Delivered 0 [employer] Therapy Statistic Total Shocks Aborted 0 [employer] Therapy Statistic Total ATP Delivered 1 [employer] Therapy Statistic Total Date Time Start [id number] [employer] Therapy Statistic Total Date Time End [id number] [employer] Episode Statistic Recent Count 0 [employer]TRONIC [...] [employer]IC Episode Statistic Recent Date Time Start [id number] [employer] Episode Statistic Recent Date Time End [id number] [employer] Episode Statistic Recent Date Time Start [id number] [employer] Episode Statistic Recent Date Time End [id number] [employer] Episode Statistic Recent Date Time Start [id number] [employer] Episode Statistic Recent Date Time End [id number] [employer] Episode Statistic Recent Date Time Start [id number] [employer] Episode Statistic Recent Date Time End [id number] [employer] Anatomical Region Laterality Modality Other 12/10/2024 2:05 PM CDT Narrative 12/10/2024 3:25 PM CDT Encounter type: Pt. seen in clinic for annual device evaluation and iterative programming. Followed by an appointment with Dr. Del Castillo for AF consult, per Dr. Chahal. Device: BOSCI, Momentum (D) ICD Pacing %/Programmed: AP- <1%, PASSENGER RATE CLERK- <1%, DDDR 55/130 Lead(s): Stable Battery longevity: [...] * COURTESY DEVICE CHECK (12/01/2024 7:03 AM PATIENT SERVICE REPRESENTATIVE) Only the most recent of2 resultswithin the time period is included. Date Time Interrogation Session [id number] [employer] Implantable Pulse Generator Analysis Engineer [place] [employer] Implantable Pulse Generator Model D121 MOMENTUM EL ICD [employer] Implantable Pulse Generator Serial Number [id number] [employer] Type Interrogation Session Remote Device Initiated [facility] Clinic Name [facility] [employer] Implantable Pulse Generator Type Defibrillator [employer] Implantable Pulse Generator Implant Date 20220912 [employer] Implantable Lead Analysis Engineer [employer] Implantable Lead Model 4470 Fineline II Sterox EZ [employer] Implantable Lead Serial Number [id number] [employer] Implantable Lead Implant Date 20110217 [employer] Implantable Lead Polarity Type Bipolar Lead [employer] Implantable Lead Location Detail 1 APPENDAGE [employer] Implantable Lead Location Right Atrium [employer] Implantable Lead Connection Status Connected [employer] Implantable Lead Analysis Engineer Guidant [employer] Implantable Lead Model 0158 [employer] [employer] Implantable Lead Serial Number [id number] [employer] Implantable Lead Implant Date 20110217 [employer]IC [...] ms [employer] Battery Date Time of Measurements [id number] [employer] Battery Status Beginning of Service [employer] Battery Remaining Longevity 126 mo [employer] Battery Remaining Percentage 100 % [employer] Capacitor Charge Type Reformation [employer] Capacitor Last Charge Date Time [id number] [employer] Capacitor Charge Time 10.1 s [employer] Charlie Statistic Date Time Start [id number] [employer] Charlie Statistic Date Time End 30873450219448 [employer] Charlie Statistic RA Percent Paced 1 % [employer] Charlie Statistic RV Percent Paced 1 % [employer] Atrial Tachy Statistic Date Time Start 59712406108997 [employer] Atrial Tachy Statistic Date Time End [id number] [employer] Atrial Tachy Statistic AT/AF [place] Percent 1 % [employer] Therapy Statistic Recent Shocks Delivered 0 [employer] Therapy Statistic Recent Shocks Aborted 0 [employer] Therapy Statistic Recent ATP Delivered 1 [employer] Therapy Statistic Recent Date Time Start [id number] [employer] Therapy Statistic Recent Date Time End 82653400332537 [employer] Therapy Statistic Total Shocks Delivered 0 [employer] Therapy Statistic Total Shocks Aborted 0 [employer] Therapy Statistic Total ATP Delivered 1 [employer] Therapy Statistic Total Date Time Start [id number] [employer] Therapy Statistic Total Date Time End 34070701335196 [employer] Episode Statistic Recent Count 1 [employer]IC [...] [employer]IC Episode Statistic Recent Date Time Start [id number] [employer] Episode Statistic Recent Date Time End [id number] [employer] Episode Statistic Recent Date Time Start [id number] [employer] Episode Statistic Recent Date Time End [id number] [employer]IC Episode Statistic Recent Date Time Start [id number] [employer] Episode Statistic Recent Date Time End [id number] [employer] Episode Statistic Recent Date Time Start [id number] [employer] Episode Statistic Recent Date Time End [id number] [employer] Episode Statistic Recent Date Time Start [id number] [employer] Episode Statistic Recent Date Time End [id number] [employer] Episode Identifier [id number] [employer] Episode Type Category Periodic EGM [employer] Episode Date Time [id number] [employer] Episode Identifier [id number] [employer] Episode Type Category Other [employer]IC Episode Date Time [id number] [employer] Episode Identifier [id number] [employer] Episode Type Category Other [employer]IC Episode Date Time [id number] [employer] Episode Identifier [id number] [employer] Episode Type Category AT/AF [employer] Episode Date Time [id number] [employer] Episode Duration 33,427 s [employer] Episode Identifier [id number] [employer] Episode Type Category Periodic EGM [employer] Episode Date Time [id number] [employer] Episode Identifier [id number] [employer] Episode Type Category Other [employer]IC Episode Date Time [id number] [employer] Episode Identifier [id number] [employer] Episode Type Category Other [employer]IC Episode Date Time [id number] [employer]IC Episode Identifier [id number] [employer] Episode Type Category Periodic EGM [employer] Episode Date Time [id number] [employer] Episode Identifier [id number] [employer] Episode Type Category Other [employer]IC Episode Date Time [id number] [employer] Episode Identifier [id number] [employer] Episode Type Category Other [employer]IC Episode Date Time [id number] [employer] Anatomical Region Laterality Modality Other 11/27/2024 4:41 AM PATIENT SERVICE REPRESENTATIVE Narrative 12/01/2024 5:20 PM PATIENT SERVICE REPRESENTATIVE Encounter Type: Alert 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 Courtesy check. Data was compiled on 11/27/24 for review and interpretation on 12/01/24. Device: BSCI Momentum. Pacing %/Programmed: AP 1%, PASSENGER RATE CLERK 1% at DDDR 55/130 ppm. Lead(s): stable. [...] Bee, Device Specialist ADD: Transmission reviewed, see [facility] for details. Megan Rawls RN [...] with platelets and differential (11/25/2024 1:43 PM PATIENT SERVICE REPRESENTATIVE) Only the most recent of3 resultswithin the time period is included. WBC Count 19.7(H) 4.0 - 11.0 10e3/uL 11/25/2024 1:55 PM [facility] RBC Count 3.59(L) 4.40 - 5.90 10e6/uL 11/25/2024 1:55 PM [facility] Hemoglobin 11.2(L) 13.3 - 17.7 g/dL 11/25/2024 1:55 PM [facility] Hematocrit 32.8(L) 40.0 - 53.0 % 11/25/2024 1:55 PM [facility] MCV 91 78 - 100 fL 11/25/2024 1:55 PM [facility] MCH 31.2 26.5 - 33.0 pg 11/25/2024 1:55 PM [facility] MCHC 34.1 31.5 - 36.5 g/dL 11/25/2024 1:55 PM [facility] RDW 13.0 10.0 - 15.0 % 11/25/2024 1:55 PM [facility] Platelet Count 273 150 - 450 10e3/uL 11/25/2024 1:55 PM [facility] % Neutrophils 88 % 11/25/2024 1:55 PM [facility] % Lymphocytes 3 % 11/25/2024 1:55 PM [facility] % Monocytes 8 % 11/25/2024 1:55 PM [facility] % Eosinophils 0 % 11/25/2024 1:55 PM [facility] % Basophils 0 % 11/25/2024 1:55 PM [facility] % Immature Granulocytes 1 % 11/25/2024 1:55 PM [facility] NRBCs per 100 WBC 0 <1 /100 025 1:55 PM [facility] Absolute Neutrophils 17.4(H) 1.6 - 8.3 10e3/uL 11/25/2024 1:55 PM [facility] Absolute Lymphocytes 0.6(L) 0.8 - 5.3 10e3/uL 11/25/2024 1:55 PM [facility] Absolute Monocytes 1.5(H) 0.0 - 1.3 10e3/uL 11/25/2024 1:55 PM [facility] Absolute Eosinophils 0.1 0.0 - 0.7 10e3/uL 11/25/2024 1:55 PM [facility] Absolute Basophils 0.0 0.0 - 0.2 10e3/uL 11/25/2024 1:55 PM [facility] Absolute Immature Granulocytes 0.1 <=0.4 10e3/uL 11/25/2024 1:55 PM [facility] Absolute NRBCs 0.0 10e3/uL 11/25/2024 1:55 PM [facility] Blood STRUCTURE OF LEFT HAND / Unknown Venipuncture / Unknown 11/25/2024 1:43 PM PATIENT SERVICE REPRESENTATIVE 11/25/2024 1:50 PM PATIENT SERVICE REPRESENTATIVE us Catalina Wright PA-C LAB - BLOOD ORDERABLES Sapphire burrell Result [facility] [address] [place] [address], [facility] * (ABNORMAL) Basic metabolic panel (11/25/2024 1:43 PM PATIENT SERVICE REPRESENTATIVE) Only the most recent of4 resultswithin the time period is included. Sodium 130(L) 135 - 145 mmol/L 11/25/2024 2:25 PM [facility] Potassium 5.1 3.4 - 5.3 mmol/L 11/25/2024 2:25 PM [facility] Chloride 98 98 - 107 mmol/L 11/25/2024 2:25 PM [facility] Carbon Dioxide (CO2) 21(L) 22 - 29 mmol/L 11/25/2024 2:25 PM [facility] Anion Gap 11 7 - 15 mmol/L 11/25/2024 2:25 PM [facility] Urea Nitrogen 43.8(H) 8.0 - 23.0 mg/dL 11/25/2024 2:25 PM [facility] Creatinine 2.31(H) 0.67 - 1.17 mg/dL 11/25/2024 2:25 PM [facility] GFR Estimate 28(L) >60 mL/min/1.7 3m2 11/25/2024 2:25 PM [facility] Comment:eGFR calculated us2020 CKD-EPI equation. Calcium 8.7(L) 8.8 - 10.4 mg/dL 11/25/2024 2:25 PM [facility] Glucose 152(H) 70 - 99 mg/dL 11/25/2024 2:25 PM [facility] Blood STRUCTURE OF LEFT HAND / Unknown Venipuncture / Unknown 11/25/2024 1:43 PM PATIENT SERVICE REPRESENTATIVE 11/25/2024 1:50 PM PATIENT SERVICE REPRESENTATIVE Catalina Wright PA-C LAB - BLOOD ORDERABLES Sapphire burrell Result [facility] [address] [place] [address], [facility] * (ABNORMAL) UA with Microscopic reflex to Culture (11/24/2024 9:59 PM PATIENT SERVICE REPRESENTATIVE) Only the most recent of2 resultswithin the time period is included. Color Urine Light Simpson(A) Colorless, Straw, Light Yellow, Yellow 11/24/2024 10:15 PM [facility] Appearance Urine Turbid(A) Clear 11/24/19 10:15 PM [facility] Glucose Urine Negative Negative mg/dL 11/24/2024 10:15 PM [facility] Bilirubin Urine Negative Negative 10:15 PM [facility] Ketones Urine Negative Negative mg/dL 11/24/2024 10:15 PM [facility] Specific [place] Urine 1.016 1.001 - 1.030 11/24/2024 10:15 PM [facility] Blood Urine >1.0 mg/dL(A) Negative 11/24/2024 10:15 PM [facility] pH Urine 6.0 5.0 - 7.0 11/24/2024 10:15 PM PATIENT SERVICE REPRESENTATIVE [facility] Protein Albumin Urine 300(A) Negative mg/dL 11/24/2024 10:15 PM PATIENT SERVICE REPRESENTATIVE [facility] Urobilinogen Urine <2.0 <2.0 mg/dL 11/24/2024 10:15 PM PATIENT SERVICE REPRESENTATIVE [facility] Nitrite Urine Negative Negative 11/24/2024 10:15 PM PATIENT SERVICE REPRESENTATIVE [facility] Leukocyte Esterase Urine 75 Adriel/uL(A) Negative 11/24/2024 10:15 PM [facility] WBC Clumps Urine Present(A) None Seen /HPF 11/24/2024 10:15 PM PATIENT SERVICE REPRESENTATIVE [facility] RBC Urine >182(H) <=2 /HPF 11/24/2024 10:15 PM PATIENT SERVICE REPRESENTATIVE [facility] WBC Urine >182(H) <=5 /HPF 11/24/2024 10:15 PM PATIENT SERVICE REPRESENTATIVE [facility] Urine URINE SPECIMEN FROM URINARY CONDUIT / Unknown Non-blood Collection / Unknown 11/24/2024 9:59 PM PATIENT SERVICE REPRESENTATIVE 11/24/2024 10:02 PM PATIENT SERVICE REPRESENTATIVE Narrative [facility] - 11/24/2024 10:15 PM PATIENT SERVICE REPRESENTATIVE Urine Culture ordered based on laboratory criteria María Shen DO LAB - URINE ORDERABLES Final Result [facility] [address] [place] [address], [facility] * (ABNORMAL) Urine Culture (11/24/2024 9:59 PM PATIENT SERVICE REPRESENTATIVE) Culture <10,000 CFU/mL Enterococcus faecalis(A) ITZ 11/28/2024 6:46 AM PATIENT SERVICE REPRESENTATIVE [facility] Culture <10,000 CFU/mL Staphylococcus epidermidis(A) 11/28/2024 6:46 AM PATIENT SERVICE REPRESENTATIVE [facility] Urine URINE SPECIMEN FROM URINARY CONDUIT / Unknown Non-blood Collection / Unknown 11/24/2024 9:59 PM PATIENT SERVICE REPRESENTATIVE 11/24/2024 10:14 PM PATIENT SERVICE REPRESENTATIVE Narrative Organism Antibiotic Method Susceptibility Enterococcus faecalis [...] ITZ <=1 ug/mL: Susceptible Staphylococcus epidermidis Doxycycline ITZ <=0.5 ug/mL: Susceptible Staphylococcus epidermidis Nitrofurantoin ITZ <=16 ug/mL: Susceptible Staphylococcus epidermidis Trimethoprim/ Sulfamethoxaz ole ITZ Susceptible Comment:Antibiotics listed a s No Interpretation have no regulatory guidelines for susceptibility/resistance available. us María Shen DO LAB - MICRO GENERAL ORDERABLE S Final Result [facility] Inf. Diseases Diag. Lab [address] [place] [address] * (ABNORMAL) Glucose by meter (11/11/2024 11:51 AM PATIENT SERVICE REPRESENTATIVE) Only the most recent of26 resultswithin the time period is included. GLUCOSE BY METER POCT 144(H) 70 - 99 mg/dL 11/11/2024 11:59 AM PATIENT SERVICE REPRESENTATIVE [facility] POCT RESULTS Blood, Capillary BLOOD SPECIMEN / Unknown 11/11/2024 11:51 AM PATIENT SERVICE REPRESENTATIVE 11/11/2024 11:59 AM PATIENT SERVICE REPRESENTATIVE [employer] DO LAB - BEAKER POCT Final Re sult [facility] POCT RESULTS [address] [place] [address] * (ABNORMAL) Renal panel (11/11/2024 5:02 AM PATIENT SERVICE REPRESENTATIVE) Only the most recent of4 resultswithin the time period is included. Sodium 137 135 - 145 mmol/L 11/11/2024 6:02 AM [facility] Potassium 4.6 3.4 - 5.3 mmol/L 11/11/2024 6:02 AM [facility] Chloride 101 98 - 107 mmol/L 11/11/2024 6:02 AM [facility] Carbon Dioxide (CO2) 21(L) 22 - 29 mmol/L 11/11/2024 6:02 AM [facility] Anion Gap 15 7 - 15 mmol/L 11/11/2024 6:02 AM [facility] Glucose 119(H) 70 - 99 mg/dL 11/11/2024 6:02 AM [facility] Urea Nitrogen 69.1(H) 8.0 - 23.0 mg/dL 11/11/2024 6:02 AM [facility] Creatinine 2.91(H) 0.67 - 1.17 mg/dL 11/11/2024 6:02 AM [facility] GFR Estimate 21(L) >60 mL/min/1.7 3m2 11/11/2024 6:02 AM [facility] Comment:eGFR calculated 2020 CKD-EPI equation. Calcium 9.4 8.8 - 10.4 mg/dL 11/11/2024 6:02 AM [facility] Albumin 4.1 3.5 - 5.2 g/dL 11/11/2024 6:02 AM [facility] Phosphorus 4.9(H) 2.5 - 4.5 mg/dL 11/11/2024 6:02 AM [facility] Blood STRUCTURE OF LEFT UPPER LIMB / Unknown Venipuncture / Unknown 11/11/2024 5:02 AM PATIENT SERVICE REPRESENTATIVE 11/11/2024 5:28 AM [facility] us [employer] DO LAB - BLOOD ORDERABLES Fin al Result [facility] [address] [place] [address], [facility] * (ABNORMAL) UA Macroscopic with reflex to Microscopic and Culture (11/10/2024 8:31 PM PATIENT SERVICE REPRESENTATIVE) Only the most recent of2 resultswithin the time period is included. Color Urine Yellow Colorless, Straw, Light Yellow, Yellow 11/10/2024 9:19 PM PATIENT SERVICE REPRESENTATIVE [facility] Appearance Urine Turbid(A) Clear 11/10/19 9:19 PM PATIENT SERVICE REPRESENTATIVE [facility] Glucose Urine Negative Negative mg/dL 11/10/2024 9:19 PM PATIENT SERVICE REPRESENTATIVE [facility] Bilirubin Urine Negative Negative 9:19 PM PATIENT SERVICE REPRESENTATIVE [facility] Ketones Urine Negative Negative mg/dL 11/10/2024 9:19 PM PATIENT SERVICE REPRESENTATIVE [facility] Specific [place] Urine 1.018 1.001 - 1.030 11/10/2024 9:19 PM PATIENT SERVICE REPRESENTATIVE [facility] Blood Urine >1.0 mg/dL(A) Negative 11/10/2024 9:19 PM PATIENT SERVICE REPRESENTATIVE [facility] pH Urine 5.5 5.0 - 7.0 11/10/2024 9:19 PM PATIENT SERVICE REPRESENTATIVE [facility] Protein Albumin Urine 100(A) Negative mg/dL 11/10/2024 9:19 PM PATIENT SERVICE REPRESENTATIVE [facility] Urobilinogen Urine <2.0 <2.0 mg/dL 11/10/2024 9:19 PM PATIENT SERVICE REPRESENTATIVE [facility] Nitrite Urine Negative Negative 11/10/2024 9:19 PM PATIENT SERVICE REPRESENTATIVE [facility] Leukocyte Esterase Urine Negative Negative 11/10/2024 9:19 PM PATIENT SERVICE REPRESENTATIVE [facility] Bacteria Urine Few(A) None Seen /HPF ITZ 11/10/2024 9:19 PM PATIENT SERVICE REPRESENTATIVE [facility] RBC Urine >182(H) <=2 /HPF 11/10/2024 9:19 PM PATIENT SERVICE REPRESENTATIVE [facility] WBC Urine 10(H) <=5 /HPF 11/10/2024 9:19 PM PATIENT SERVICE REPRESENTATIVE [facility] Squamous Epithelials Urine <1 <=1 /HPF 11/10/2024 9:19 PM PATIENT SERVICE REPRESENTATIVE [facility] Urine URINE SPECIMEN OBTAINED BY CLEAN CATCH PROCEDURE / Unknown Non-blood Collection / Unknown 11/10/2024 8:31 PM PATIENT SERVICE REPRESENTATIVE 11/10/2024 8:49 PM PATIENT SERVICE REPRESENTATIVE Narrative [facility] - 11/10/2024 9:19 PM PATIENT SERVICE REPRESENTATIVE Urine Culture not indicated [employer] DO LAB - URINE ORDERABLES Fin al Result [facility] [address] * Extra Purple Top EDTA (LAB USE ONLY) (11/10/2024 5:15 AM PATIENT SERVICE REPRESENTATIVE) Only the most recent of2 resultswithin the time period is included. Hold Specimen JIC 11/10/2024 6:46 AM PATIENT SERVICE REPRESENTATIVE [facility] Blood STRUCTURE OF RIGHT UPPER LIMB / Unknown Venipuncture / Unknown 11/10/2024 5:15 AM PATIENT SERVICE REPRESENTATIVE 11/10/2024 5:36 AM PATIENT SERVICE REPRESENTATIVE [employer] LAB - BLOOD ORDERABLES Fin al Result Performing Organization Address [facility] de Phone Number [facility] [address] * Sodium random urine (11/09/2024 5:15 PM PATIENT SERVICE REPRESENTATIVE) Sodium Urine mmol/L 55 mmol/L 11/09/2024 5:52 PM PATIENT SERVICE REPRESENTATIVE [facility] Comment:The reference ranges have not been established in urine sodium. The results should be integrated into the clinical context for interpretation. Urine MID-STREAM URINE SPECIMEN / Unknown Non-blood Collection / Unknown 11/09/2024 5:15 PM PATIENT SERVICE REPRESENTATIVE 11/09/2024 5:19 PM PATIENT SERVICE REPRESENTATIVE Marilyn Savage MD LAB - URINE ORDERABLES Fin al Result Performing Organization Address [facility] de Phone Number [facility] [address] * US Renal Complete Non-Vascular (11/09/2024 3:50 PM PATIENT SERVICE REPRESENTATIVE) Anatomical Region Laterality Modality Abdomen/Pelvis Ultrasound 11/09/2024 3:50 PM PATIENT SERVICE REPRESENTATIVE Impressions 11/09/2024 3:56 PM PATIENT SERVICE REPRESENTATIVE IMPRESSION: 1. No hydronephrosis. 2. The prostate gland is enlarged. The bladder is distended. Narrative 11/09/2024 3:56 PM PATIENT SERVICE REPRESENTATIVE EXAM: US RENAL COMPLETE NON-VASCULAR LOCATION: [facility] DATE: 11/09/2024 INDICATION: ALEX COMPARISON: None. TECHNIQUE: [...] 11/09/2024 EXAM: US RENAL COMPLETE NON-VASCULAR LOCATION: [facility] DATE: 11/09/2024 INDICATION: ALEX COMPARISON: None. TECHNIQUE: [...] The bladder is distended. Marilyn Savage MD [facility] US ORDERABLES Final Re sult * Folate (11/09/2024 11:34 AM PATIENT SERVICE REPRESENTATIVE) Folic Acid 17.1 4.6 - 34.8 ng/mL 11/09/2024 2:32 PM PATIENT SERVICE REPRESENTATIVE [facility] Blood STRUCTURE OF LEFT UPPER LIMB / Unknown Venipuncture / Unknown 11/09/2024 11:34 AM PATIENT SERVICE REPRESENTATIVE 11/09/2024 11:39 AM PATIENT SERVICE REPRESENTATIVE [employer] DO LAB - BLOOD ORDERABLES Fin al Result [facility] [address] [facility] [address] [facility] [place] [address] * (ABNORMAL) Magnesium (11/09/2024 4:43 AM PATIENT SERVICE REPRESENTATIVE) Magnesium 2.4(H) 1.7 - 2.3 mg/dL 11/09/2024 5:53 AM PATIENT SERVICE REPRESENTATIVE [facility] Blood STRUCTURE OF LEFT UPPER LIMB / Unknown Venipuncture / Unknown 11/09/2024 4:43 AM PATIENT SERVICE REPRESENTATIVE 11/09/2024 5:26 AM PATIENT SERVICE REPRESENTATIVE [facility] - BLOOD ORDERABLES Fin al Result Performing Organization Address City/[facility] Co de Phone Number [facility] [address] * (ABNORMAL) Hemoglobin (11/09/2024 4:43 AM PATIENT SERVICE REPRESENTATIVE) Hemoglobin 12.6(L) 13.3 - 17.7 g/dL 11/09/2024 5:32 AM PATIENT SERVICE REPRESENTATIVE [facility] Blood STRUCTURE OF LEFT UPPER LIMB / Unknown Venipuncture / Unknown 11/09/2024 4:43 AM PATIENT SERVICE REPRESENTATIVE 11/09/2024 5:25 AM PATIENT SERVICE REPRESENTATIVE [facility] LAB - BLOOD ORDERABLES Fin al Result Performing Organization Address [facility] Co de Phone Number [facility] [address] * CK total (11/09/2024 4:43 AM PATIENT SERVICE REPRESENTATIVE) CK 127 39 - 308 U/L 11/09/2024 4:12 PM PATIENT SERVICE REPRESENTATIVE [facility] Blood STRUCTURE OF LEFT UPPER LIMB / Unknown Venipuncture / Unknown 11/09/2024 4:43 AM PATIENT SERVICE REPRESENTATIVE 11/09/2024 5:26 AM PATIENT SERVICE REPRESENTATIVE [facility] LAB - BLOOD ORDERABLES Fin al Result Performing Organization Address City/[facility] Co de Phone Number [facility] [address] [place] [address], [facility] * Vitamin B12 (11/09/2024 4:43 AM PATIENT SERVICE REPRESENTATIVE) Vitamin B12 461 232 - 1,245 pg/mL 11/09/2024 6:57 PM PATIENT SERVICE REPRESENTATIVE LABORATORY Blood STRUCTURE OF LEFT UPPER LIMB / Unknown Venipuncture / Unknown 11/09/2024 4:43 AM PATIENT SERVICE REPRESENTATIVE 11/09/2024 5:26 AM PATIENT SERVICE REPRESENTATIVE Bry Ramos Zev SCHAFER LAB - BLOOD ORDERABLES Fin al Result [facility] [address] [facility] [place] [address] * Potassium (11/06/2024 3:27 PM PATIENT SERVICE REPRESENTATIVE) Only the most recent of3 resultswithin the time period is included. Potassium 4.7 3.4 - 5.3 mmol/L 11/06/2024 3:42 PM PATIENT SERVICE REPRESENTATIVE [facility] Blood STRUCTURE OF RIGHT UPPER LIMB / Unknown Venipuncture / Unknown 11/06/2024 3:27 PM PATIENT SERVICE REPRESENTATIVE 11/06/2024 3:30 PM PATIENT SERVICE REPRESENTATIVE Marilyn Savage MD LAB - BLOOD ORDERABLES Fin al Result [facility] [address] * TSH with free T4 reflex (11/06/2024 4:27 AM PATIENT SERVICE REPRESENTATIVE) TSH 3.08 0.30 - 4.20 uIU/mL 11/06/2024 1:42 PM PATIENT SERVICE REPRESENTATIVE [facility] Blood TOPOGRAPHY UNKNOWN / Unknown Venipuncture / Unknown 11/06/2024 4:27 AM PATIENT SERVICE REPRESENTATIVE 11/06/2024 4:31 AM PATIENT SERVICE REPRESENTATIVE [employer] DO LAB - BLOOD ORDERABLES Fin al Result [facility] [address] [place] [address], [facility] * (ABNORMAL) Comprehensive metabolic panel (11/06/2024 4:27 AM [facility]) Sodium 138 135 - 145 mmol/L 11/06/2024 4:49 AM [facility] Potassium 4.9 3.4 - 5.3 mmol/L 11/06/2024 4:49 AM [facility] Carbon Dioxide (CO2) 22 22 - 29 mmol/L 11/06/2024 4:49 AM [facility] Anion Gap 10 7 - 15 mmol/L 11/06/2024 4:49 AM [facility] Urea Nitrogen 48.4(H) 8.0 - 23.0 mg/dL 11/06/2024 4:49 AM [facility] Creatinine 2.69(H) 0.67 - 1.17 mg/dL 11/06/2024 4:49 AM [facility] GFR Estimate 23(L) >60 mL/min/1.7 3m2 11/06/2024 4:49 AM [facility] Comment:eGFR calculated us2020 CKD-EPI equation. Calcium 9.4 8.8 - 10.4 mg/dL 11/06/2024 4:49 AM [facility] Chloride 106 98 - 107 mmol/L 11/06/2024 4:49 AM [facility] Glucose 108(H) 70 - 99 mg/dL 11/06/2024 4:49 AM [facility] Alkaline Phosphatase 126 40 - 150 U/L 11/06/2024 4:49 AM [facility] AST 23 0 - 45 U/L 11/06/2024 4:49 AM [facility] ALT 20 0 - 70 U/L 11/06/2024 4:49 AM [facility] Protein Total 6.5 6.4 - 8.3 g/dL 11/06/2024 4:49 AM [facility] Albumin 4.0 3.5 - 5.2 g/dL 11/06/2024 4:49 AM [facility] Bilirubin Total 0.5 <=1.2 mg/dL 11/06/2024 4:49 AM [facility] Blood TOPOGRAPHY UNKNOWN / Unknown Venipuncture / Unknown 11/06/2024 4:27 AM PATIENT SERVICE REPRESENTATIVE 11/06/2024 4:31 AM PATIENT SERVICE REPRESENTATIVE [employer] LAB - BLOOD ORDERABLES Fin al Result [facility] [address] * MRSA Culture (11/05/2024 9:02 PM PATIENT SERVICE REPRESENTATIVE) Culture No MRSA isolated ITZ 11/08/2024 9:23 PM PATIENT SERVICE REPRESENTATIVE [facility] Swab NASAL STRUCTURE / Unknown Non-blood Collection / Unknown 11/05/2024 9:02 PM PATIENT SERVICE REPRESENTATIVE 11/05/2024 9:21 PM PATIENT SERVICE REPRESENTATIVE Keshav Palmer MD LAB - MICRO GENERAL ORDERABLES Final Result Performing Organization Address City/[facility]/ZIP Co de Phone Number [facility] Inf. Diseases Diag. Lab [address] [facility] [place] [address] * (ABNORMAL) Nt probnp inpatient (11/05/2024 3:37 PM PATIENT SERVICE REPRESENTATIVE) N terminal Pro BNP Inpatient 3,284(H) 0 - 1,800 pg/mL 11/05/2024 4:19 PM PATIENT SERVICE REPRESENTATIVE [facility] Comment: Reference range shown and [...] Unknown Venipuncture / Unknown 11/05/2024 3:37 PM PATIENT SERVICE REPRESENTATIVE 11/05/2024 3:47 PM PATIENT SERVICE REPRESENTATIVE Anderson Otero MD LAB - BLOOD ORDERABLES Fi nal Result Performing Organization Address [facility] de Phone Number [facility] [address] * (ABNORMAL) Protein random urine (11/05/2024 3:19 PM PATIENT SERVICE REPRESENTATIVE) Total Protein Urine mg/dL 44.5 mg/dL 11/05/2024 3:45 PM PATIENT SERVICE REPRESENTATIVE [facility] Comment:The reference ranges have not been established in urine protein. The results should be integrated into the clinical context for interpretation. Total Protein Urine mg/mg Creat 0.96(H) 0.00 - 0.20 mg/mg Cr 11/05/2024 3:45 PM PATIENT SERVICE REPRESENTATIVE [facility] Creatinine Urine mg/dL 46.4 mg/dL 11/05/2024 3:45 PM PATIENT SERVICE REPRESENTATIVE [facility] Comment:The reference ranges have not been established in urine creatinine. The results should be integrated into the clinical context for interpretation. Urine MID-STREAM URINE SPECIMEN / Unknown Non-blood Collection / Unknown 11/05/2024 3:19 PM PATIENT SERVICE REPRESENTATIVE 11/05/2024 3:23 PM PATIENT SERVICE REPRESENTATIVE [employer] LAB - URINE ORDERABLES Fin al Result Performing Organization Address [facility] de Phone Number [facility] [address] * CV RIGHT HEART CATH MEASUREMENTS RECORDED (11/05/2024 9:56 AM PATIENT SERVICE REPRESENTATIVE) Anatomical Region Laterality Modality Other Narrative 11/05/2024 10:32 AM PATIENT SERVICE REPRESENTATIVE Cardiac Catheterization Report Name: David Coleman : 1945 Procedure date: November 05, 2024 Procedure: Right heart catheterization Pre-op diagnosis: [id number] Post-op diagnosis: Same Proceduralist: Jarrett Porras MD Access: 7 Slovak, right internal jugular Catheters: Merlin Hemostasis: Manual Meds: Fentanyl 25 mcg Midazolam [...] - Patient tolerated procedure well The attending experimental technician was present and supervised all critical aspects the procedure. us Nora Chahal MD CV CARDIAC CATH ORDERABLES Fin al Result * (ABNORMAL) Blood gas venous POCT (11/05/2024 9:42 AM PATIENT SERVICE REPRESENTATIVE) Only the most recent of4 resultswithin the time period is included. pH Venous POCT 7.33 7.32 - 7.43 11/05/2024 9:50 AM [facility] POCT RESULTS pCO2 Venous POCT 37(L) 40 - 50 mm Hg 11/05/2024 9:50 AM [facility] POCT RESULTS pO2 Venous POCT 34 25 - 47 mm Hg 11/05/2024 9:50 AM [facility] POCT RESULTS Bicarbonate Venous POCT 19(L) 21 - 28 mmol/L 11/05/2024 9:50 AM [facility] POCT RESULTS Base Excess/Deficit (+/-) POCT -6.2(L) -3.0 - 3.0 mmol/L 11/05/2024 9:50 AM PATIENT SERVICE REPRESENTATIVE [facility] POCT RESULTS O2 Sat, Venous POCT 62(L) 70 - 75 % 11/05/2024 9:50 AM PATIENT SERVICE REPRESENTATIVE [facility] POCT RESULTS Oxyhemoglobin Venous POCT 61(L) 70 - 75 % 11/05/2024 9:50 AM PATIENT SERVICE REPRESENTATIVE [facility] POCT RESULTS Blood, venous BLOOD SPECIMEN / Unknown 11/05/2024 9:42 AM PATIENT SERVICE REPRESENTATIVE 11/05/2024 9:50 AM PATIENT SERVICE REPRESENTATIVE Narrative [facility] POCT RESULTS - 11/05/2024 9:50 AM PATIENT SERVICE REPRESENTATIVE In healthy individuals, oxyhemoglobin (O2Hb) and oxygen saturation (SO2) are approximately equal. In the presence of dyshemoglobins, oxyhemoglobin can be considerably lower than oxygen saturation. us Jarrett Porras MD LAB - INTERFACED POCT Final Resu lt [facility] POCT RESULTS [facility] [facility] [place] [address] * ECG 12-Lead with MUSE ??? SJN,SJO,WWH (11/05/2024 7:27 AM PATIENT SERVICE REPRESENTATIVE) Systolic Blood Pressure mmHg RADIOLOGY RESULTS Diastolic Blood Pressure mmHg RADIOLOGY RESULTS Ventricular Rate 79 BPM RAD IOLOGY RESULTS Atrial Rate 79 BPM RADIOLOG Y RESULTS RI Interval 172 ms RADIOLOG Y RESULTS QRS Duration 104 ms RADIOLO GY RESULTS QT 396 ms RADIOLOGY RESULTS QTc 454 ms RADIOLOGY RESULTS P [place] 46 degrees RADIOLOGY RESULTS R AXIS 12 degrees RADIOLOGY RESULTS T [place] -54 degrees RADIOLOGY RESULTS Interpretation ECG Sinus rhythm Septal infarct , age undetermined Abnormal ECG When compared with ECG of 04-Mar-2017 07:43, Septal infarct is now Present Non-specific change in ST segment in Lateral leads Nonspecific T wave abnormality, worse in Inferior leads Nonspecific T wave abnormality now evident in Lateral leads Confirmed by JARRETT PORRAS MD LOC:JN ([id number]) on 11/05/2024 9:08:23 AM RADIOLOGY RESULTS 11/05/2024 7:27 AM PATIENT SERVICE REPRESENTATIVE 11/05/2024 9:08 AM PATIENT SERVICE REPRESENTATIVE us Nora Chahal MD ECG ORDERABLES Edited Result - Final RADIOLOGY RESULTS * EKG Cardiac - HIM Scan (11/05/2024 12:00 AM PATIENT SERVICE REPRESENTATIVE) 11/05/2024 us Provider Outside ECG ORDERABLES Final Result * Adult Type and Screen (11/04/2024 9:00 AM PATIENT SERVICE REPRESENTATIVE) ABO/RH(D) O NEG 11/03/2024 6:00 PM [facility] BLOOD [facility]ANK Antibody Screen Negative Negative 11/03/2024 6:00 PM [facility] SPECIMEN EXPIRATION DATE [id number] 11/03/2024 6:00 PM [facility]OD [facility] Blood STRUCTURE OF LEFT UPPER LIMB / Unknown Venipuncture / Unknown 11/04/2024 9:00 AM PATIENT SERVICE REPRESENTATIVE 11/04/2024 10:20 AM [facility] Nora Chahal MD LAB - BLOOD BANK TEST ORDER Fi nal Result Performing Organization Address City/[facility]/ZIP Co de Phone Number [facility]OD [facility] [address] * (ABNORMAL) Lipid panel reflex to direct LDL Fasting (11/04/2024 9:00 AM PATIENT SERVICE REPRESENTATIVE) Cholesterol 138 <200 mg/dL 11/04/2024 10:44 AM [facility] Triglycerides 174(H) <150 mg/dL 11/04/2024 10:44 AM [facility] Direct Measure HDL 30(L) >=40 mg/dL 11/04/2024 10:44 AM [facility] LDL Cholesterol Calculated 73 <100 mg/dL 11/04/2024 10:44 AM [facility] Non HDL Cholesterol 108 <130 mg/dL 11/04/2024 10:44 AM [facility] Patient Fasting > 8hrs? Unknown 11/04/2024 10:44 AM [facility] Blood STRUCTURE OF LEFT UPPER LIMB / Unknown Venipuncture / Unknown 11/04/2024 9:00 AM PATIENT SERVICE REPRESENTATIVE 11/04/2024 10:20 AM PATIENT SERVICE REPRESENTATIVE Narrative [facility] - 11/04/2024 10:44 AM PATIENT SERVICE REPRESENTATIVE Cholesterol Desirable: < 200 mg/dL Borderline High: [...] ORDERABLES Final R esult Performing Organization Address City/[facility] Co de Phone Number [facility] [address] [place] [address], [facility] * (ABNORMAL) Hemoglobin A1c (11/04/2024 9:00 AM [facility]) [facility] Estimated Average Glucose 143(H) <117 mg/dL 11/05/2024 12:25 PM [facility] Hemoglobin A1C 6.6(H) <5.7 % 11/05/2024 12:25 PM [facility] Comment: Normal <5.7% Prediabetes 5.7-6.4% Diabetes 6.5% or higher Note: Adopted from ADA consensus guidelines. Blood STRUCTURE OF LEFT UPPER LIMB / Unknown Venipuncture / Unknown 11/04/2024 9:00 AM PATIENT SERVICE REPRESENTATIVE 11/04/2024 10:20 AM PATIENT SERVICE REPRESENTATIVE [employer] DO LAB - BLOOD ORDERABLES Fin al Result Performing Organization Address [facility] Co de Phone Number [facility] [address] [place] [address], [facility] * (ABNORMAL) CBC with platelets (11/04/2024 9:00 AM PATIENT SERVICE REPRESENTATIVE) WBC Count 7.2 4.0 - 11.0 10e3/uL 11/04/2024 10:25 AM [facility] RBC Count 4.05(L) 4.40 - 5.90 10e6/uL 11/04/2024 10:25 AM [facility] Hemoglobin 13.0(L) 13.3 - 17.7 g/dL 11/04/2024 10:25 AM [facility] Hematocrit 38.9(L) 40.0 - 53.0 % 11/04/2024 10:25 AM [facility] MCV 96 78 - 100 fL 11/04/2024 10:25 AM [facility] MCH 32.1 26.5 - 33.0 pg 11/04/2024 10:25 AM [facility] MCHC 33.4 31.5 - 36.5 g/dL 11/04/2024 10:25 AM [facility] RDW 14.2 10.0 - 15.0 % 11/04/2024 10:25 AM [facility] Platelet Count 195 150 - 450 10e3/uL 11/04/2024 10:25 AM [facility] Blood STRUCTURE OF LEFT UPPER LIMB / Unknown Venipuncture / Unknown 11/04/2024 9:00 AM PATIENT SERVICE REPRESENTATIVE 11/04/2024 10:20 AM PATIENT SERVICE REPRESENTATIVE us Nora Chahal MD LAB - BLOOD ORDERABLES Final R esult N LABORATORY 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 Insurance [facility] Advance Directives For more information, please contact: [phone] * Full Code (Latest Code Status on File) Date Activated Date Inactivated Comments 11/05/2024 10:24 AM 11/11/2024 5:14 PM All basic an d advanced life-sustaining interventions are performed as appropriate Question Answer Comments Code status determined by: Discussion with ady nt/ legal decision maker Care Teams Tobacco Blender Relationship Specialty Start Date End Date Votel, Herminio Preston [address] [place] [address] PCP - General 08/21/14 Nora Chahal MD [address] [facility], [address] [place] [address] Assigned Heart and Vascular Provider 09/21/24
[2025-01-10 15:46] LABS: Slide Review Reflex No
--- OUTSIDE RECORDS SUMMARY | 2025-01-10 15:46 | XMS_ITS | Clinical Summary ---
Author Organization [facility] Address [address] [place] [address] Care Team Providers Care Associate Director Of Sales Name Role Phone VotelHerminio MD Primary Care Provider + Marce Quinteros MD Unavailable [phone] Ramesh Moreno MD Unavailable [phone] Allergies No known active allergies Medications MULTIVITAMIN [...] tameka pham, in situ 06/10/2018 Overview (03/14/2022): [facility] DOI: 02/17/11 Dr. Ed Ley [facility] DOI: 02/17/11 Dr. Ed Ley Abnormal stress test 03/04/2017 FARZANA 03/18/2007 AHI- 49 HST 03/25/2023 AHI- 21 /02/2014 Other and unspecified hyperlipidemia 02/18/2007 Obesity, unspecified 02/18/2007 Coronary atherosclerosis of unspecified type of vessel, [place] or graft 01/16/2007 Overview (02/18/2007): Status post [...] Type Department Care Team Description 12/30/2024 Refill [facility] [address] [place] [address] Herminio Napier MD Refill Request (Amlodipine, Glipizide) 12/10/2024 Orders Only [facility] [address] [place] [address] Ramesh Moreno MD <No scans attached> 12/09/2024 10:25 AM CDT Office Visit [facility] [address] [place] [address] Herminio Napier MD Diabetes; Medication Management 12/09/2024 Travel 11/18/2024 1:25 PM FOLDED CLOTH TAPER Office Visit [facility] [address] [place] [address] Donell James MD Hospital F/U (11/05/24, hypertension, SOB, [place]) 11/18/2024 Travel 11/13/2024 Telephone [facility] [address] [place] [address] Herminio Napier MD Appointment Request 11/11/2024 Refill [facility] [address] [place] [address] Herminio Napier MD Refill Request (Metoprolol Succinate) 11/04/2024 1:40 PM FOLDED CLOTH TAPER Office Visit [facility] [address] [place] [address] Herminio Napier MD Preoperative Exam (11/05/24, [place],heart, artery from heart to lung) 11/04/2024 Travel 10/27/2024 Telephone [facility] [address] [place] [address] Herminio aNpier MD Questions (Requests call back) from Last [...] on file Legal Sex Male 5:20 AM FOLDED CLOTH TAPER Gender Identity Not on file Sexual Orientation Not on file Occupation Industry Job Start Date Job End Date [employer] Not on file Not on file Not on file Obstetrics History Last Filed Vital Signs Vital Sign Reading Time Taken Comments Blood Pressure 125/74 12/09/2024 10:41 AM CDT Pulse 86 12/09/2024 10:41 AM CDT Temperature 36.6 C (97.8 F) 11/18/2024 1:36 PM FOLDED CLOTH TAPER Respiratory Rate 14 03/16/2024 2:00 PM CDT [...] Description 01/12/2025 8:20 AM CDT Office Visit [facility] [address] [place] [address] VotelHerminio MD [address] [place] [address] Health Maintenance Due Date Last Done Comments [...] BASIC METABOLIC PANEL Routine 11/18/2024 2:17 PM FOLDED CLOTH TAPER Hospital discharge follow-up ANTI HCV Routine 08/12/2013 8:44 AM FOLDED CLOTH TAPER Screening for HIV (human immunodeficiency virus) from [...] MD CHEMISTRY Final Re sult [facility] [address] [place] [address], [facility] [address] [place] [address] * (ABNORMAL) HEMOGLOBIN A1C MONITORING (POCT) (12/09/2024 10:11 AM CDT) Pathologist [facility] POC HEMOGLOBIN A1C 7.0(H) <6.0 % OF TOTAL HGB [facility] Comment: Any point of care results exhibiting inconsistency with the patient's clinical status should be repeated using a different testing method. Blood BLOOD SPECIMEN / Unknown 12/09/2024 10:11 AM CDT 12/09/2024 10:11 AM CDT Herminio Napier MD CHEMISTRY Final Re sult Performing Organization Address City/[facility]/ZIP Co de Phone Number [facility] [address] [place] [address], [facility] [address] [place] [address] * (ABNORMAL) URINE ALBUMIN TO CREATININE RATIO, RANDOM (12/09/2024 10:09 AM CDT) ALB RAND URINE 337.0 mg/L 12/09/2024 7:57 PM CDT [facility] TRAL LABORATORY CREATININE,URIN E 0.86 g/L 12/09/2024 7:57 PM CDT [facility] ALBUMIN TO CREATININE RATIO,RAND UR 391.9(H) <30.0 mg/g creat 12/09/2024 7:57 PM CDT [facility] TRAL LABORATORY Urine URINE SPECIMEN / Unknown Non-Blood / Unknown 12/09/2024 10:09 AM CDT 12/09/2024 10:09 AM CDT Narrative [facility] - 12/09/2024 7:57 PM CDT If Albumin to Creatinine Ratio is elevated, consider the following: Elevations seen with incipient nephropathy associated with diabetes mellitus or hypertension. Stress, exercise,hematuria, and urinary tract infection may also produce elevated results. If clinically indicated, confirm with 24 Hour Albumin to Creatinine Ratio. Herminio Napier MD URINE Final Re sult [facility] 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 02/14/2010 02/14/2010 Insurance [employer] [place] [id number] MEDICARE PART A HB ONLY Advance Directives * Full Code (Latest Code Status on File) Date Activated Date Inactivated Comments 02/18/2007 7:29 AM 02/19/2007 2:14 PM Care Teams Associate Director Of Sales Relationship Specialty Start Date End Date Votel, Herminio Wolf MD [address] [place] [address] PCP - General 04/24/06 Marce Quinteros MD [address] [place] [address] Rheumatology Rheumatology 01/30/17 Ramesh Moreno MD [address] [place] [address] Consulting Physician Nephrology 04/06/24
--- OUTSIDE RECORDS SUMMARY | 2025-01-10 15:46 | XMS_ITS | Encounter Summary ---
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 Gender Identity Not on file Sexual Orientation Not on file documented as of this encounter Plan of Treatment Upcoming Encounters Date Type Department Care Team (Late st Contact Info) Description 02/19/2025 Ancillary Procedure [facility] 1600 [facility] [address] [place] [address] Jesus Del Castillo MD [address] [facility] [address] [place], [place] [address] 03/25/2025 1:20 PM CDT Office Visit [place] [address] [facility] [address] [place] [phone] Nora Chahal MD 1600 [facility], [address] [place] [address] 04/06/2025 Ancillary Procedure [facility] 1600 [facility] [address] [place] [address] Jesus Del Castillo MD [address] [facility] [address] [place], [place] [address] 04/08/2025 12:50 PM CDT Office Visit [place] [address] [facility] [address] [place] [phone] Priscilla Lopez APRN SAMPLE BUILDER [address] [facility] [address] [place] [address] documented as of this encounter Procedures Procedure Name Priority Date/Time Associated Diagnosis Comments LAB RESULT - HIM SCAN Routine 10/17/2024 2:27 PM SHELL CORE AND MOLDING SUPERVISOR documented in this encounter Results * Lab Result - HIM Scan (10/17/2024 2:27 PM SHELL CORE AND MOLDING SUPERVISOR) us Patient Reported MH NON-BEAKER LAB TESTING Final Result documented in this encounter Visit Diagnoses Not on filedocumented in this encounter Additional Health Concerns Infection Onset Date Last Indicated Resolved Time 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 Care Teams School Cleaner Relationship Specialty Start Date End Date Votel, Herminio Preston [address] [place] [address] PCP - General 08/21/14 Nora Chahal MD [address] [facility] [address] [place] [address] Assigned Heart and Vascular Provider 09/21/24 documented as of this encounter
--- OUTSIDE RECORDS SUMMARY | 2025-01-10 15:46 | XMS_ITS | Encounter Summary ---
Author Organization [facility] Address [address] [place] [address] Care Team Providers Care Candy Maker Helper Name Role Phone Herminio Napier Primary Care Provider [phone] Nora Chahal MD Unavailable [phone] Winsome Banda PA-C Unavailable [phone] Nora Chahal MD Unavailable [phone] Reason for Visit * Reason Onset Date Comments Orders 07/13/2022 Device Encounter Details Date Type Department Care Team (Late st Contact Info) Description 07/13/[address] [facility] Heart [address] [place] [address] Nora Chahal MD 1600 [facility], [address] [place] [address] Orders (Device ) Social History Tobacco Use Types Packs/Day Years Used Date Smoking Tobacco: Never Smokeless Tobacco: Former Chew Alcohol Use Standard Drinks/Week Comments No 0 (1 standard drink = 0.6 oz pur e alcohol) Sex and Gender Information Value Date Recorded Sex Assigned at Not on file Legal Sex Male 5:07 AM SUPERVISOR STOCK RANCH Gender Identity Not on file Sexual Orientation Not on file documented as of this encounter Miscellaneous Notes * Telephone Encounter - Kacey Fajardo - 07/13/2022 2:30 PM CDT [facility] Call Center Phone Message May a detailed [...] st Contact Info) Description 02/19/2025 Ancillary Procedure [facility] 1600 [facility] [address] [place] [phone] Jesus Del Castillo MD 1600 [facility] [address] [place], [place] [address] 03/25/2025 1:20 PM CDT Office Visit [address] [place] [phone] Nora Chahal MD 1600 [facility], [address] [place] [address] 04/06/2025 Ancillary Procedure [facility] [address] [facility] [address] [place] [address] Jesus Del Castillo MD 1600 [facility] [address] [place], [place] [address] 04/08/2025 12:50 PM CDT Office Visit [address] [place] [phone] Priscilla Lopez APRN DIRECTOR CHANNEL 1600 [facility] [address] [place] [address] documented as of this encounter Visit Diagnoses Not on filedocumented in this encounter Additional Health Concerns Infection Onset Date Last Indicated Resolved Time 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 Care Teams Candy Maker Helper Relationship Specialty Start Date End Date Herminio Napier [address] [place] [address] PCP - General 08/21/14 Nora Chahal MD 1600 [facility], [address] [place] [address] Assigned Heart and Vascular Provider 04/14/21 10/23/23 Winsome Banda PA-C [address] [place] [address] Assigned Heart and Vascular Provider 10/24/23 09/20/24 Nora Chahal MD 1600 [facility], [address] [place] [address] Assigned Heart and Vascular Provider 09/21/24 documented as of this encounter
--- OUTSIDE RECORDS SUMMARY | 2025-01-10 15:46 | XMS_ITS | Encounter Summary ---
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 Gender Identity Not on file Sexual Orientation Not on file documented as of this encounter Plan of Treatment Upcoming Encounters Date Type Department Care Team (Late st Contact Info) Description 02/19/2025 Ancillary Procedure [facility] 1600 [facility] [address] [place] [address] Jesus Del Castillo MD 1600 [facility] [address] [place], [place] [address] 03/25/2025 1:20 PM CDT Office Visit [place] [address] [facility] [address] [place] [phone] Nora Chahal MD 1600 [facility], [address] [place] [address] 04/06/2025 Ancillary Procedure [facility] [address] [facility] [address] [place] [address] Jesus Del Castillo MD 1600 [facility] [address] [place], [place] [address] 04/08/2025 12:50 PM CDT Office Visit [place] [address] [facility] [address] [place] [phone] Priscilla Lopez APRN RELOCATION COUNSELOR 1600 [facility] [address] [place] [address] documented as of this encounter Procedures Procedure Name Priority Date/Time Associated Diagnosis Comments LAB RESULT - HIM SCAN Routine 09/18/2024 12:53 PM STRUCTURAL ANALYSIS ENGINEER documented in this encounter Results * Lab Result - HIM Scan (09/18/2024 12:53 PM STRUCTURAL ANALYSIS ENGINEER) us Patient Reported MH NON-BEAKER LAB TESTING Final Result documented in this encounter Visit Diagnoses Not on filedocumented in this encounter Additional Health Concerns Infection Onset Date Last Indicated Resolved Time 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 Care Teams Heat Treat Supervisor Relationship Specialty Start Date End Date Votel, Herminio Preston [address] [place] [address] PCP - General 08/21/14 Nora Chahal MD 1600 [facility] 200 [place] [address] Assigned Heart and Vascular Provider 09/21/24 documented as of this encounter
--- OUTSIDE RECORDS SUMMARY | 2025-01-10 15:46 | XMS_ITS | Encounter Summary ---
Author Organization [facility] Address [address] [place] [address] Care Team Providers Care Anatomy Professor Name Role Phone RonniteHerminio burrell Mohan Primary Care Provider [phone] Nora Chahal MD Unavailable [phone] Winsome Banda PA-C Unavailable [phone] Nora Chahal MD Unavailable [phone] Encounter Details Date Type Department Care Team (Late st Contact Info) Description 02/18/2017 Records - [facility] CONVERSION Scan, Non-Provider Social History Tobacco Use Types Packs/Day Years Used Date Smoking Tobacco: Never Assessed Sex and Gender Information Value Date Recorded Sex Assigned at Not on file Legal Sex Male 5:07 AM FREIGHT SORTER Gender Identity Not on file Sexual Orientation Not on file documented as of this encounter Plan of Treatment Upcoming Encounters Date Type Department Care Team (Late st Contact Info) Description 02/19/2025 Ancillary Procedure [facility] Heart [facility] 1600 [facility] [address] [place] [phone] Jesus Del Castillo MD 1600 [facility] [address] [place], [place] [address] 03/25/2025 1:20 PM CDT Office Visit [facility] Heart [address] [place] [phone] Nora Chahal MD 1600 [facility], [address] [place] [address] 04/06/2025 Ancillary Procedure [facility] [place] 1600 [facility] [address] [place] [phone] Jesus Del Castillo MD [address] [facility] [address] [place] [address] 04/08/2025 12:50 PM CDT Office Visit [place] [address] [facility] [address] [place] [phone] Priscilla Lopez APRN [employer] 1600 [facility] [address] [place] [address] documented as of this encounter Visit Diagnoses Not on filedocumented in this encounter Additional Health Concerns Infection Onset Date Last Indicated Resolved Time MRSA-Contact Isolation Comment:Infection erroneous 10/02/2021 1 1:02 AM FREIGHT SORTER 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 Care Teams Anatomy Professor Relationship Specialty Start Date End Date Herminio Napier [address] [place] [address] PCP - General 08/21/14 Nora Chahal MD 1600 [facility], [address] [place] [address] Assigned Heart and Vascular Provider 04/14/21 10/23/23 Winsome Banda PA-C [address] [place] [address] Assigned Heart and Vascular Provider 10/24/23 09/20/24 Nora Chahal MD 1600 [facility], [address] [place] [address] Assigned Heart and Vascular Provider 09/21/24 documented as of this encounter
[2025-01-10 16:01] LABS: Albumin* 4.3 g/dL (3.3-5.0); Chloride* 105 mmol/L (96-114); Sodium* 133 mmol/L (135-149)
[2025-01-10 16:04] LABS: Alanine Aminotransferase* 26 U/L (4-50); Aspartate Amino Transferase* 26 U/L (12-35); Blood Urea Nitrogen* 77 mg/dL (7-30); Creatinine* 2.8 mg/dL (0.5-1.5); Est. Creatinine Clearance* 22.78; Estimated Glomerular Filt Rate 22 ml/min
[2025-01-10 16:05] LABS: Alkaline Phosphatase* 110 U/L (40-150); Anion Gap 15 mEq/L (7-15); Bilirubin Total* 0.5 mg/dL (0.1-1.5); Calcium* 9.5 mg/dL (8.4-10.6); Carbon Dioxide* 13 mmol/L (20-32); Glucose* 349 mg/dL (60-115); Magnesium* 2.3 mg/dL (1.5-2.6); Total Protein* 7.5 g/dL (6.0-8.3)
[2025-01-10 16:07] LABS: C Reactive Protein* 3.4 mg/dL (0.5-1.0)
[2025-01-10 16:16] LABS: NT Pro B Type NatriureticPept* 8250 pg/mL
[2025-01-10 16:18] LABS: Potassium* 6.6 mmol/L (3.6-5.1); Troponin I* < 0.01 ng/mL (0.01-0.04)
[2025-01-10 16:36] LABS: PCR FLU A Negative PCR FLU A (Negative); PCR FLU B Negative PCR FLU B (Negative); PCR RSV Negative PCR RSV (Negative); SARS PCR* Negative SARS-CoV-2 (Negative)
[2025-01-10] MEDS: FUROSEMIDE 10 MG/ML inj 60 MG IVP (16:44)
[2025-01-10 16:54] LABS: Potassium* 6.9 mmol/L (3.6-5.1)
[2025-01-10] MEDS: INSULIN REGULAR, HUMAN 100 UNIT/ML VIAL IVP ×2 (17:03→20:28)
[2025-01-10] MEDS: CALCIUM GLUC 1,000MG/50 ML 1,000 MG/50 ML BAG 100 MG IVPB (17:07)
[2025-01-10 17:43] LABS: Appearance Urine Cloudy (Clear); Bilirubin Urine Negative (Negative); Blood Urine 2+ (Negative); Color Urine Yellow (Yellow); Glucose Urine Trace (Negative); Ketones Urine Negative (Negative); Leukocyte Esterase Urine 3+ (Negative); Nitrite Urine Negative (Negative); Protein Urine 2+ (Negative); Urobilinogen Urine 0.2 (0.2-1.0); pH Urine 5.5 (5.0-8.5)
[2025-01-10 17:47] LABS: Glucose, Point-of-Care* 275 mg/dl (60-115)
[2025-01-10 18:02] LABS: Bacteria Urine Moderate; Other Sediment Urine Few; WBC Urine >100 (0-5)
[2025-01-10] MEDS: cefTRIAXone 1 GM in 0.9 % SODIUM CHLORIDE Mini-bag 100 ML IVPB (18:30)
[2025-01-10 19:03] LABS: Glucose* 264 mg/dL (60-115)
[2025-01-10 19:06] LABS: Potassium* 6.5 mmol/L (3.6-5.1)
[2025-01-10] MEDS: SODIUM ZIRCONIUM CYCLOSILICATE 10 GM PO (20:39)
[2025-01-10 21:15] LABS: Glucose, Point-of-Care* 220 mg/dl (60-115)
== END 2025-01-10 21:10 | disposition short-term general hospital (02) ==
PROVIDERS: Emergency Provider Family Medicine; PCP Family Medicine
DX: I50.9 Heart failure, unspecified (principal); E78.5 Hyperlipidemia, unspecified; N18.9 Chronic kidney disease, unspecified; N39.0 Urinary tract infection, site not specified
CPT/HCPCS: 36415; 71045; 80053; 81001; 82947; 82962; 83605; 83735; 83880; 84132; 84484; 85025; 86140; 87086; 87186; 87631; 93005; 94761; 96365; 96366; 96375; 99285; A0425; A0427; J0613; J0696; J1938

== ENCOUNTER 2025-01-10 21:10 | Outpatient (CLI) | payer OTHER, SELFPAY | END 2025-01-10 21:11 | disposition home or self-care (01) | LOC: AMB 01-11 16:06 | PROVIDERS: PCP Family Medicine; Visit Provider Family Medicine | DX: I50.9 Heart failure, unspecified (principal); E87.5 Hyperkalemia; N18.9 Chronic kidney disease, unspecified; N39.0 Urinary tract infection, site not specified | CPT/HCPCS: A0425; A0427 ==